=== PATIENT | female | born 1960 | race Caucasian/White ===

== ENCOUNTER 2022-08-22 20:50 | Emergency (ER) | payer OTHER, SELFPAY ==
--- NOTE | ~2022-08-22 | CT_ITS ---
CT Abdomen and Pelvis with contrast. History: Abdominal pain. Spiral CT of the abdomen and pelvis was performed after the administration of intravenous contrast. 1 00 cc of Omnipaque 350 was administered intravenously without complication. Dose reduction technique was used on this scan by utilizing automated exposure control and iterative reconstruction technique. The dose-length product (DLP) was 362.87 mGy-cm. COMPARISON: 05/15/2006 Findings: Scans through the lung bases are clear. The liver, spleen, pancreas, adrenals and kidneys are within normal limits. Cholecystectomy clips are present. No evidence of aortic aneurysm. No lymphadenopathy is seen. There is no evidence of bowel obstruction. There is no evidence of prior bariatric surgery. There is no evidence to suggest acute appendicitis or diverticulitis. Images through the pelvis were performed. Possible small right ureterocele. No adnexal mass evident. No ascites is seen. Impression: Possible small right ureterocele. Postsurgical changes, as above, otherwise unremarkable exam. Reviewed, dictated and finalized at location . CAST OPERATOR Impression: Possible small right ureterocele. Postsurgical changes, as above, otherwise unremarkable exam.
[2022-08-22 21:09] VITALS: BP 122/86; PULSE 77; RESP 18; TEMP 36.4; O2SAT 100
[2022-08-22 21:18] LABS: Basophils Percent Auto 0.7 % (0.2-1.2); Eosinophils Absolute Auto 0.2 K/mm3 (0-0.3); Eosinophils Percent Auto 2.8 % (0-4.4); Hemoglobin 12.9 g/dL (12.0-15.0); Immature Granulocyte Absolute 0.01 K/mm3 (0.00-0.031); Immature Granulocyte Percent A 0.2 % (0-0.5); Lymphocytes Absolute Auto 2.01 K/mm3 (0.9-3.2); Lymphocytes Percent Auto 37.3 % (18.3-44.2); Mean Corpuscular HGB Conc 33.1 g/dl (32-36); Mean Corpuscular Hemoglobin 30.4 pg (26-34); Mean Corpuscular Volume 91.8 fl (80-100); Mean Platelet Volume 8.6 fl (7.4-10.4); Monocytes Absolute Auto 0.5 K/mm3 (0.1-0.6); Monocytes Percent Auto 9.8 % (2.6-8.5); Neutrophils Absolute Auto 2.7 K/mm3 (1.3-6.7); Neutrophils Percent Auto 49.2 % (45.5-73.1); Platelet Count Result 299 k/mm3 (150-375); Red Blood Count 4.25 M/mm3 (4.2-5.4); Red Cell Distribution Width 12.9 % (11.5-14.5); White Blood Count 5.4 K/mm3 (4.5-10.0)
[2022-08-22 21:31] LABS: Alanine Aminotransferase 39 U/L (6-35); Alkaline Phosphatase 64 U/L (38-126); Anion Gap 5 mmol/L (8-16); Aspartate Amino Transferase 28 U/L (14-36); Bilirubin,Total 0.8 mg/dL (0.2-1.3); Blood Urea Nitrogen 26 mg/dL (7-17); Calcium 9.2 mg/dL (8.4-10.2); Carbon Dioxide 30 mmol/L (22-30); Chloride 101 mmol/L (98-107); Estimated CRCL calculation 50 ml/min; Estimated Glomerular Filt Rate > 60; Glucose 61 mg/dL (65-110); Lipase 260 U/L (23-300); Potassium 3.7 mmol/L (3.4-5.0); Sodium 136 mmol/L (137-145)
[2022-08-22 22:38] LABS: Appearance Urine Clear (Clear); Bilirubin Urine Negative (Negative); Blood Urine Trace-intact (Negative); Glucose Urine UA Negative (Negative); Ketones Urine Negative (Negative); Leukocyte Esterase Ur Negative LEU/UL (Negative); Nitrate Urine Negative (Negative); Protein Urine Negative (Negative); Specific Grav Ur 1.015 (1.001-1.035); Urobilinogen Urine 0.2 mg/dL (<2.0); pH Urine 5.5 (5.0-9.0)
[2022-08-22 23:15] LABS: Add Urine Microscopic? YES; Color Urine Light Yellow (Yellow)
[2022-08-22 23:22] VITALS: O2SAT 100
[2022-08-22 23:24] LABS: Squamous Epithelial Cell Urine Rare /hpf (Few); WBC Urine 0-3 /hpf
[2022-08-22 23:30] VITALS: O2SAT 99
[2022-08-22 23:31] VITALS: BP 104/66; O2SAT 98
[2022-08-22 23:32] VITALS: O2SAT 98
[2022-08-22] MEDS: ONDANSETRON INJ 4 MG/2 ML VIAL IV PUSH (23:40)
[2022-08-22] MEDS: SODIUM CHLORIDE 0.9% IV 1,000 ML 999 ML IV CONT (23:40)
--- NOTE | 2022-08-22 23:53 | ED.ABDPAIN ---
HPI - Abdominal Pain General Chief Complaint: Abdominal Pain Stated Complaint: bladder pain Time Seen by Provider: 08/22/22 23:12 History of Present Illness HPI narrative: Patient is a 62-year-old female with a history of gastric sleeve procedure here for evaluation of suprapubic abdominal discomfort over the past several hours. Patient states the pain came on while she was at rest, described as severe in nature. The pain remained there for several minutes and then moved into her right flank. She also notes a pressure sensation and feels as though her uterus may be prolapsed. Notes one episode of vomiting and nausea. Denies dysuria, urgency, frequency, hematuria, constipation. Related Data Allergies Allergy/AdvReac Type Severity Reaction Status Date / Time acetaminophen Allergy Intermediate Itching Verified 08/22/22 23:08 Cephalosporins Allergy Intermediate Itching Verified 08/22/22 23:08 hydrocodone Allergy Intermediate Itching Verified 08/22/22 23:08 naproxen Allergy Intermediate Itching Verified 08/22/22 23:08 Review of Systems Review of Systems: Gen.: Denies fevers or chills Eyes: Denies eye pain or visual change ENT: Denies congestion Respiratory: Denies shortness of breath or cough CV: Denies chest pain or palpitations GI: Reports abdominal pain, nausea, vomiting denies burning, urgency, frequency or hematuria Musculoskeletal: Denies back pain or muscle pain Neuro: Denies numbness, tingling, weakness or focal weakness Skin: Denies rash Except as documented, all other systems reviewed and negative Exam Narrative: APPEARANCE: Well appearing, no pain in distress, well-nourished. Head: Normocephalic and atraumatic. EYES: PERRLA/EOMI, conjunctivae clear NOSE: No nasal drainage EARS: External ear normal in appearance THROAT: Oropharynx is clear. Mucous membranes are moist. NECK: Supple. No adenopathy, no masses. RESPIRATORY: Airway patent, respirations nonlabored. Clear to auscultation bilaterally, no rales, rhonchi, wheezing. CARDIOVASCULAR: Regular rate and rhythm without murmurs, rubs, or gallops. ABDOMINAL: Tenderness to palpation in the suprapubic region. Normoactive bowel sounds. Soft, nondistended. No rebound tenderness or guarding. MUSCULOSKELETAL: Extremities are warm and well-perfused. Moves all extremities well. No edema. NEURO: Normal speech. No focal neurologic deficits. SKIN: Skin is warm and dry. No rashes. PSYCHIATRIC: Normal affect/mood. Course Vital Signs Vital signs: Vital Signs Temperature 97.6 F 08/22/22 21:09 Pulse Rate 77 08/22/22 21:09 Respiratory Rate 18 08/22/22 21:09 Blood Pressure 122/86 08/22/22 21:09 Pulse Oximetry 100 08/22/22 21:09 Oxygen Delivery Room Air 08/22/22 21:09 Temperature 97.6 F 08/22/22 21:09 Pulse Rate 77 08/22/22 21:09 Respiratory Rate 18 08/22/22 21:09 Blood Pressure 115/67 08/23/22 00:31 Pulse Oximetry 100 08/23/22 00:31 Oxygen Delivery Room Air 08/22/22 21:09 MDM - Abdominal Pain MDM Narrative Medical decision making narrative: 62-year-old female here for evaluation of suprapubic abdominal discomfort over the past day associated with vomiting and a discomfort with urination. She is nontoxic in appearance and has normal vital signs. Basic labs are unremarkable. Blood sugar slightly low but patient states she has not eaten all day. Urinalysis without evidence of UTI. CT abdomen pelvis with inflammatory changes around her ureter that could be related to UTI or a possible ureterocele. Given her normal urinalysis favor the latter. She will be referred to urology for further evaluation and management. Her pain subsided in the ED without intervention. Stable for outpatient follow-up at this time. Lab Data 08/22/22 21:14 08/22/22 21:14 Labs: Lab Results 08/22/22 08/22/22 08/22/22 Range/Units 21:14 21:14 22:27 WBC 5.4 (4.5-10.0) K/mm3 RBC 4.25 (4.2-5.4) M/mm3 Hgb 12.9
[2022-08-23 00:12] VITALS: O2SAT 99
[2022-08-23 00:15] VITALS: O2SAT 98
[2022-08-23 00:28] VITALS: BP 116/66; O2SAT 100
[2022-08-23 00:30] VITALS: O2SAT 98
[2022-08-23 00:31] VITALS: BP 115/67; O2SAT 100
[2022-08-23 02:16] VITALS: BP 115/67; PULSE 73; RESP 18; O2SAT 100
== END 2022-08-23 02:18 | disposition home or self-care (01) ==
PROVIDERS: Preventive Medicine Aerospace Medicine; Emergency Provider Physician Assistant
DX: R10.30 Lower abdominal pain, unspecified (principal); Z98.84 Bariatric surgery status
CPT/HCPCS: 36415; 74177; 80053; 81001; 83690; 85025; 96361; 96374; 99284; J2405; J7030; Q9967

== ENCOUNTER 2024-08-30 05:19 | Emergency (ER) | payer BC, SELFPAY ==
--- NOTE | ~2024-08-30 | XR_ITS ---
CHEST RADIOGRAPH CLINICAL HISTORY: chest pain, shortness of breath . COMPARISON: 10/23/2016 TECHNIQUE: Single portable view of the chest. FINDINGS The cardiomediastinal silhouette is unremarkable. The lungs are clear. Visualized osseous structures and soft tissues are unremarkable. IMPRESSION: No focal infiltrate or effusion. Reviewed, dictated and finalized at location A. [employer] LO[employer] ANALYST
[2024-08-30 05:20] VITALS: BP 89/55; PULSE 202; RESP 18; TEMP 36.6; O2SAT 100
--- OUTSIDE RECORDS SUMMARY | 2024-08-30 05:22 | XMS_ITS | Patient Health Record ---
Author Organization [employer] Address [address] [facility] [place]. [address] [place] [id number] Care Team Providers Care Cognos Architect Name Role Phone Sally Senior MD Primary Care Provider Mundo Jj Unavailable [phone] Allergies Allergen (clinical drug ingredient) Drug/Non Drug Allergy documented on EMR Reaction Allergy Type Onset Date Status cephalexin Cephalexin Unknown Drug Allergy Activ e naproxen Naproxen Unknown Drug Allergy Active topiramate Topamax Unknown Drug Allergy Active Reason For Referral No Information Medications Medication SIG (Take, Route, Frequency, Duration) Notes Start Date End Date Status [place] Thyroid 60 MG Orally Once a day Active OTC/Vitamins Magnesium, Vitamin K-2, Vitamin C Active hydroCHLOROthiazide Active B-12 Gastric Bypass Activ e Social History Tobacco Use: Social History Observation Description Date Details (start date - stop date) Never Smoker NA - NA Tobacco Use/Smoking Question Answer Notes Are you a nonsmoker Problems Problem Type SNOMED Code ICD Code Onset Dates Problem Status W/U Status Risk Notes Problem 565796682 Abdominal bloating (R14.0) Active confirmed Problem 993755281 History of bariatric surgery (Z98.84) Active confirmed Problem 11785920 Esophageal dysphagia (R13.10) Active confirmed Problem 271494060 Epigastric direct abdominal tenderness (R10.816) Active confirmed Plan Of Treatment Pending Test Test Name Order Date EGD 11/19/2019 IRON AND TOTAL IRON BINDING CAPACITY 01/2020 FOLATE, SERUM 11/19/2019 VITAMIN B12 11/19/2019 FERRITIN 11/19/2019 ZINC 11/19/2019 Ca+PTH Intact 11/19/2019 CMP: COMPLETE METABOLIC PANEL 11/19/2019 CBC With Differential/Platelet 0 CRP 11/19/2019 Vitamin D, 1,25 + 25-Hydroxy 11/19/2019 Insurance Providers Payer Name Payer Address Payer Phone Subscriber Number Group Number Insured Name Patient Relationship to Insured Coverage Start Date Coverage End Date [facility] [address] [place] [phone] [id number] Milad Walters Spouse - patient is the spouse of the insured Medical (General) History Medical History History ICD Code Ulcers Colon Polyps Hypertension Migraines Hearing Loss Seizures as a baby Surgical History Surgery Date(Month/Year) Colonoscopy Gastric Bypass Umbilical Hernia Twisted Bowel Mesh Removal Partial Hysterectomy Cholecysectomy Hospitalization History Reason Date(Month/Year)
--- OUTSIDE RECORDS SUMMARY | 2024-08-30 05:22 | XMS_ITS | Referral Summary ---
Author Organization [facility] Address [address] [facility] [place] [address] Care Team Providers Care Box Liner Name Role Phone Unknown, Provider Primary Care Provider Unavaila ble Source Comments [facility],non-[facility] Affiliates and Associated Physician Practices is amultiple site organization consisting of ambulatory clinics and hospital sitesin [place], [place], [place] and [place]. This disclosure is being madepursuant to the Care Everywhere program and may not contain all information available regarding this patient. Last updated 18.[facility] Z[facility]m XR Allergies Active Allergy Reactions Criticality Noted Date Comments Naproxen Unknown 01/05/2023 Medications * Be aware that medications may not be up to date on this document. Alwaysverify current medications with the patient. Medication Sig Dispensed Refills Start Date End Date Status acetaminophen (Tylenol) 325 MG tablet Take 2 (two) tablets by mouth every 4 hours as needed for Fever or Pain Maximum allowable Acetaminophen amount = 4 Grams (4000 mg) / 24 hours. 30 tablet 01/05/2023 Active methocarbamol (Robaxin) 750 MG tablet Take 1 (one) tablet by mouth every 6 hours as needed for Muscle Spasms 15 tablet 01/05/2023 Active albuterol HFA (Proventil; Ventolin; Proair) 108 (90 Base) MCG/ACT inhaler Active Ascorbic Acid 1000 MG Take 1 (one) tablet by mouth 2 times daily Active budesonide-formot mikie (Symbicort) 160-4.5 MCG/ACT inhaler Inhale 2 (two) puffs by mouth once daily as needed Active buPROPion SR 12hr (Wellbutrin-SR) 150 MG tablet Take 1 (one) tablet by mouth 2 times daily Active cyanocobalamin (Vitamin B-12) injection Inject 1,000 (one thousand) mcg subcutaneously every 30 days Active ergocalciferol (Drisdol) 1.25 MG (96626 UT) capsule Take 1 (one) capsule by mouth Active ferrous sulfate 325 (65 FE) MG tablet Take 1 (one) tablet by mouth once daily Active FLUoxetine (PROzac) 40 MG capsule Active fluticasone propionate (Flonase) 50 MCG/ACT nasal spray Active hydrOXYzine HCl (Atarax) 25 MG tablet Take 1 (one) tablet by mouth every 8 hours as needed Active thyroid ([place] Thyroid) 60 MG tablet Active pantoprazole (Protonix) 40 MG packet take 1 packet by oral route every day mixed in 1 teaspoonful of applesauce or apple juice Active lisinopril (Prinivil; Zestril) 2.5 MG tablet Active lidocaine (Lidoderm) 5 % patch Active Immunizations Name Administration Dates Next Due TDAP (7yrs+) 01/05/2023 Social History Tobacco Use Types Packs/Day Years Used Date Smoking Tobacco: Former Cigarettes Q uit: 2022 Smokeless Tobacco: Never Tobacco Cessation:Counseling Given: Not Answered Alcohol Use Standard Drinks/Week Comments Not Currently 0 (1 standard drink = 0.6 oz pur e alcohol) Sex and Gender Information Value Date Recorded Sex Assigned at Not on file Gender Identity Not on file Sexual Orientation Not on file Last Filed Vital Signs Vital Sign Reading Time Taken Comments Blood Pressure 124/75 01/24/2023 12:29 PM CDT Pulse 66 01/24/2023 12:29 PM CDT Temperature 36.9 C (98.5 F) 01/24/2023 12:29 PM CDT Respiratory Rate 19 01/24/2023 12:29 PM CDT Oxygen Saturation 99% 01/24/2023 12:29 PM CDT Inhaled Oxygen Concentration - - Weight 69.4 kg (153 lb) 01/24/2023 12:29 PM CDT Height 161.3 cm (5' 3.5 ) 01/24/2023 12:29 PM CD T Body Mass Index 26.68 01/24/2023 12:29 PM CDT Plan of Treatment Not on file Procedures Procedure Name Priority Date/Time Associated Diagnosis Comments BASIC METABOLIC PANEL (CALCIUM TOTAL) STAT 01/05/2023 12:20 AM CDT from Last 3 Months or Most Recently Relevant to Health Maintenance Results * (ABNORMAL) BASIC METABOLIC PANEL (CALCIUM TOTAL) (01/05/2023 12:20 AM CDT) BUN 13 7 - 26 mg/dL 01/05/2023 12:57 AM [facility] Creatinine 0.74 0.56 - 0.96 mg/dL 01/05/2023 12:57 AM [facility] Sodium 131(L) 136 - 145 mmol/L 01/05/2023 12:57 AM [facility] Potassium 3.0(L) 3.5 - 4.5 mmol/L 01/05/2023 12:57 AM [facility] Chloride 99 98 - 107 mmol/L 01/05/2023 12:57 AM [facility] CO2 22 22 - 29 mmol/L 01/05/2023 12:57 AM [facility] Glucose 115 70 - 115 mg/dL 01/05/2023 12:57 AM [facility] Calcium 8.9 8.4 - 10.2 mg/dL 01/05/2023 12:57 AM [facility] Anion Gap 13 8 - 18 01/05/2023 12:57 AM [facility] BUN/Creatinine Ratio 18 7 - 23 01/05/2023 12:57 AM [facility] Osmolality Calculated 273 270 - 300 mOsm/kg 01/05/2023 12:57 AM [facility] eGFR by CKD-EPI 63(L) >=90 mL/min/1.7 3 m2 01/05/2023 12:57 AM [facility] Blood BLOOD SPECIMEN / Unknown Venipuncture / Unknown 01/05/2023 12:20 AM CDT 01/05/2023 12:26 AM CDT Familia Rausch MD LAB - CHEMISTRY GONZALO GUAMAN [facility] Organization Address City/State/ZIP Co de Phone Number [facility] [address] [place] [address], [facility] [phone] from Last 3 Months or Most Recently Relevant to Health Maintenance Care Teams Box Liner Relationship Specialty Start Date End Date Unknown, Provider PCP - General 01/05/23
--- OUTSIDE RECORDS SUMMARY | 2024-08-30 05:22 | XMS_ITS | Data Portability ---
Author Organization [facility] [place] Address [address] [place] [address] [place] [address] Assessment Encounter Date Assessment Date Assessment LastModified by Organization Details LastModified Time 12/17/2023 12/17/2023 Annual gynecological exam performed. Patient will come back in a year unless there are new symptoms. [email or web address] Not available 12/17/2023 14:17:46 Plan of Treatment Reminders Order Date Submit Date Provider Last Modified By Organization Details Last Modified Time Details Appointments None recorded. Lab None recorded. Referral endocrinolo gy referral 2023 024 [email or web address] [place], [address], [place], [address], 4 10:55:10 Procedures None recorded. Surgeries None recorded. Imaging MAMMO, screening, bilateral 2023 024 [email or web address] [facility], [address], [address], [place], [address], 10:58:34 Medication Orders None recorded. Patient TargetsNo targets recorded. Patient InstructionsNo instructions recorded. Reason for Referral Endocrinology Referral for H ypothyroidism Referring Physician: Vangie Lopez, INFORMATION DIRECTOR, Encounter Date: 12/17/2023 Results Created Date Observation Date Name Description Value Unit Range Abnormal Flag Note LastModifiedBy Organization Detail LastModifiedTime 10/11/19 22 10/10/2021 IMAGE GUIDE D PAP AND HPV REGAR DLESS image guided Pap, HPV regardless of Pap result SEE RESULT S BELOW abnormal CASE REPOR T: Cytol ogy Gynec ologi emily Repor t Case: [id number] Autho stasamari tiffani Provi sofia: Gilma Parada, CRISTIANE Colle cted: 10/10 1450 Order ing Locat ion: [place] Patho log[facility] Recei guy: 10/10 2357 First Scree n: Lea Aquino ret, CT Patho logis t: Reji Tan MD Speci men: Scree jordan Pap - Image d, Cervi x STATE MENT OF ADEQU ACY: Satis facto ry for evalu ation Trans forma tion zone compo nent prese nt FINAL DIAGN OSIS: Epith elial Cell Abnor malit y, Squam ous Cell: Atypi emily Squam ous Cells of Undet ermin ed Signi fican ce (ASC- US). Elect aung espinoza carolina d by Reji Tan MD on 022 at 3:54 PM ----- ----- ----- ----- ----- ----- ----- ----- ----- ----- ----- ----- ----- ----- ----- ----- ----- ---- HPV RESUL TS: HPV mRNA E6/E7 : Posit nubia - HPV mRNA Detec paul HPV GENOT YPE 16 (DELFINA) : Not Detec paul HPV GENOT YPE 18/45 (DELFINA) : Not Detec paul NOTE: This high risk HPV mRNA assay detec ts fourt een high- risk HPV types (16, 18, 31, 33, 35, 39, 45, 51, 52, 56, 58, 59, 66, 68) witho ut diffe renti ation . This assay can diffe renti ate HPV 16 from HPV 18/45 , but does not diffe renti ate betwe en HPV 18 and HPV 45. A negat nubia HPV 16, 18/45 genot ype assay resul t does not exclu de the possi bilit y of cytol ogic abnor malit ies or of futur e or under lying EVA 1, EVA 3 or cance r. COMMShaylee NT: Note: This speci men was revie wed by a Cytot echno logis t and/o r Patho logis t (as indic ated in this repor t) after evalu ation using the Thinp rep Imagi ng Syste m. CLINI EMILY INFOR MATIO N: Menst rual Statu s: LMP (if appli cable ): Clini emily Histo ry/Pr eviou s Pap: Type of Neopl marc (if appli cable ): Signi fican t Clini emily Findi ngs: Other Histo ry: Hormo gordo (if appli cable ): SUGGE STED FOLLO W-UP: Follo w up as warra nted, based on curre nt guide lines and indiv idual patie nt consi derat ions. Not Available [facility] (Lab) [address], [place], [address], 10/17/2021 16:57:40 12/06/19 22 12/05/2021 SURGI EMILY PATHO LOGY surgical pathology SEE RESULT S BELOW CASE REPOR T: Surgi emily Patho logy Repor t Case: [id number] Autho leeann nixon Provi sofia: Jigar Harris Colle cted: 12/05 1359 COPRA PROCESSOR Order ing Locat ion: [place] Patho [place] Recei guy: 12/06 0436 Patho logis t: Martin Stone MD Speci mens: A) - Cervi x, 5 o'corwin ck B) - Endoc ervix , ECC C) - Cervi x, TMZ FINAL DIAGN OSIS: A. Cervi x, 5:00, biops y: -Low- grade squam ous intra epith elial lesio n (EVA- 1). B. Endoc ervix , curet tage: -Frag ments of benig n ectoc ervic al and endoc ervic al mucos a. C. Cervi x, trans forma tion zone, biops y: -Foca l low-g rade squam ous intra epith elial lesio n (EVA- 1). Elect aung figueroa d by Martin Stone MD on 2021 at 12:46 PM ----- ----- ----- ----- ----- ----- ----- ----- ----- ----- ----- ----- ----- ----- ----- ----- ----- ---- CLINI EMILY INFOR MATIO N: r87.6 10, r87.6 10 MICRO SCOPI C DESCR IPTIO N: A micro scopi c exami natio n was perfo rmed. GROSS DESCR IPTIO N: A. Cervi x. The speci men is label ed with the patie nt's name, naveenog raphi cs and BX 5:00 . Recei guy in forma melissa is a 0.5 cm fragm ent of white -pelaez tissu e. The entir e speci men is submi tted in one casse tte. Gross ed by Blayne Vickers on B. Endoc ervix . The speci men is label ed with the patie nt's name, demog raphi cs and ECC . Recei guy in forma melissa and on a biops y brush is a 0.3 x 0.2 x 0.1 cm aggre gate of minut e white tissu e and mucus . It is submi tted all in one casse tte. Gross ed by Blayne Vickers on C. Cervi x. The speci men is label ed with the patie nt's name, demog raphi cs and ECC . Recei guy in forma melissa is a less than 0.1 [address] aggre gate of minut e white tissu e and mucus . It is submi tted all in one casse tte. Note the tissu e may not survi ve proce ssing . Gross ed by Blayne Vickers on Not Available [facility] (Lab) [address], [place], [address], 12/06/2021 13:49:42 12/17/19 24 12/17/2023 IMAGE GUIDE D PAP AND HPV REGAR DLESS image guided Pap, HPV regardless of Pap result SEE RESULT S BELOW CASE REPOR T: Cytol ogy Gynec ologi emily Repor t Case: [id number] Autho leeann nixon Provi sofia: Paulo leija , Selam Clark cted: 12/16 1708 COPRA PROCESSOR Order ing Locat ion: [place] Patho [place]y Recei guy: 12/17 0828 First Scree n: Nadine Henao , CT Rescr een: Kate Cartagena Speci men: Jenny ortega Pap - Image d, Cervi x STATE MENT OF ADEQU ACY: Satis facto ry for evalu ation Trans forma tion zone compo nent prese nt. ----- ----- ----- ----- ----- ----- ----- ----- ----- ----- ----- ----- ----- ----- ----- ----- ----- ---- FINAL DIAGN OSIS: Negat nubia for Intra epith elial Oz jeffers or Essence solomon (NIL) . Atrop hic kaye capps rn. Elect aung nash by Kate Cartagena on 024 at 5:01 PM ----- ----- ----- ----- ----- ----- ----- ----- ----- ----- ----- ----- ----- ----- ----- ----- ----- ---- HPV RESUL TS: HPV mRNA E6/E7 : No HPV mRNA Detec paul NOTE: This high risk HPV mRNA assay detec ts fourt een high- risk HPV types (16, 18, 31, 33, 35, 39, 45, 51, 52, 56, 58, 59, 66, 68) witho ut diffe renti ation . COMME NT: This speci men was revie wed by a Cytot echno logis t and/o r Patho logis t (as indic ated in this repor t) after evalu ation using the Thinp rep Imagi ng Syste m. CLINI EMILY INFOR MATIO N: Menst rual Statu s: LMP (if appli cable ): Clini emily Histo ry/Pr eviou s Pap: High Risk Type of Neopl marc (if appli cable ): Signi fican t Clini emily Findi ngs: Other Histo ry: Hormo gordo (if appli cable ): PAP EDUCA JHONNY L NOTE: The Pap Test is a scree jordan test with an inher ent false negat nubia rate. Liqui d-bas ed sampl ing may decre ase, but will not elimi jennifer, false negat nubia resul ts. A negat nubia resul t does not precl ude the prese nce and/o r devel opmen t of disea se, since the prese nce of abnor mal cells in the sampl e depen ds on the locat ion of the lesio n and sampl ing techn ique. Kike nued regul ar scree jordan is the best metho d of cance r preve ntion . If repor paul cytol ogic findi ng do not corre late with physi emily and/o r histo rical findi ngs, furth er inves tigat ion is recom payal d, as clini lilliana no nted. Not Available [facility] ([facility]) [address], [place], [address], 12/19/2023 18:05:18 Result Notes None recorded. Procedures Surgical History Date Name Laterality Status Provider Name and Address Organization Details Recorded Time Colposcopy completed Vangie Lopez, RICHELLE- [address], [place], [address], [facility] 12/05/2021 11:39:40 Colposcopy completed Sari Venegas [facility] 12/17/2023 14:22:56 Date of Last Pap Smear completed [facility] 10/12/2021 15:16:38 007 Gastric Bypass completed [facility] 10/12/2021 15:27:28 000 cholecystectomy completed [facility] 10/12/2021 15:27:41 995 Laparoscopy completed [facility] 10/12/2021 15:28:12 993 section completed [facility] 10/12/2021 15:28:29 993 Tubal Ligation completed [facility] 10/12/2021 15:28:40 Imaging Results None recorded. Procedure Notes None recorded. Medical Equipment None Reported. Allergies Allergen ID Allergen Name Allergen Category Reaction Reaction Severity Criticality Documentation Date Start Date Code Code System Note Provider Name and Address Organization Details Recorded Time 85570 hydrocodo ne Not available Not available Not available Not available 12/05/[address] [facility] 2 11:12:46 9733 cephalexi n medicatio n Not available Not available Not available 07/01/2020 2231 RxNorm Comme nt: [facility]at [facility]; Not Available [facility] 0 14:14:43 9736 ibuprofen medicatio n Not available Not available Not available 07/01/2020 5640 RxNorm Comme nt: Locat [facility]: [facility]; Not Available [facility] 0 14:14:43 9741 acetamino phen medicatio n Not available Not available Not available 07/01/2020 161 RxNorm Comme nt: Locat [facility]: [facility] Cau sativ e Agent : Vicod in; Not Available [facility] 0 14:14:43 Medications Name Sig Start Date Stop Date Status Note LastModified by Organization Details LastModified Time fluoxetin e 40 mg capsule 12/16 completed Not Available Not Available Not Available [place] Thyroid 60 mg tablet 12/16 completed Not Available Not Available Not Available buspirone 5 mg tablet 12/16 completed Not Available Not Available Not Available bupropion HCl SR 150 mg tablet,12 hr sustained -release 12/16 completed Not Available Not Available Not Available acetamino phen 325 mg tablet PLEASE SEE ATTACHED FOR DETAILED DIRECTIO NS 12/16 completed Not Available Not Available Not Available [place] Thyroid 90 mg tablet 12/16 completed Not Available Not Available Not Available Carafate 100 mg/mL oral suspensio n take 10 millilit er by oral route 4 times every day on an empty stomach 1 hour before meals and at bedtime 12/05 completed Prescrib ed Elsewher e: Yes [facility] By: stefan arellano DateTime : 01/01/20 14 01:00:00 PM Not Available Not Available Not Available clindamyc in HCl 300 mg capsule TAKE 1 CAPSULE BY MOUTH 3 TIMES A DAY UNTIL GONE 12/16 completed Not Available Not Available Not Available BD Luer-Joan Syringe 3 mL 25 x 5/8 12/16 completed Not Available Not Available Not Available Provera 2.5 mg tablet take 1 Tablet by oral route every day 08/10 completed Prescrib ed Elsewher e: No Locat ion: [facility] odify By: devontediemily Encount er DateTime : 02/26/20 13 03:00:00 PM Not Available Not Available Not Available Synthroid 125 mcg tablet take 1 tablet by oral route every day 12/05 completed Prescrib ed Elsewher e: Yes Loca tion: [facility] odify By: fiona myers DateTime : 10/24/19 17 09:30:00 AM Not Available Not Available Not Available [place] Thyroid 120 mg tablet active Not Available Not Available Not Available clindamyc in HCl 150 mg capsule 12/05 completed Not Available Not Available Not Available Provera 5 mg tablet TAKE 1 TABLET BY MOUTH EVERY DAY 12/16 completed Prescrib ed Elsewher e: No Locat ion: Kam june [facility] odify By: alexis tz Encou nter DateTime : 01/01/20 14 01:00:00 PM Not Available Not Available Not Available phentermi ne 37.5 mg tablet TAKE 1 TABLET BY MOUTH DAILY X 5 DAYS, THEN OFF X 2 DAYS. REPEAT CYCLE UNTIL GONE 12/16 completed Not Available Not Available Not Available acetamino phen 300 mg-codein e 30 mg tablet 12/16 completed Not Available Not Available Not Available oxycodone -acetamin ophen 5 mg-325 mg tablet 12/16 completed Not Available Not Available Not Available Metrogel Vaginal 0.75 % (37.5 mg/5 gram) insert 1 applicat orful by vaginal route for 5 nights at bedtime 12/05 completed Prescrib ed Elsewher e: No [facility] By: matthew salehunttyrone DateTime : 10/31/19 17 09:23:00 AM Not Available Not Available Not Available methocarb pankaj 750 mg tablet TAKE 1 (ONE) TABLET BY MOUTH EVERY 6 HOURS NEEDED FOR MUSCLE SPASMS 12/16 completed Not Available Not Available Not Available estradiol 1 mg tablet take 1 tablet by oral route every day 01/01 completed Prescrib ed Elsewher e: No Locat ion: Jamel shaylee [facility] odify By: blane Encount er DateTime : 01/01/20 14 01:00:00 PM Not Available Not Available Not Available Synthroid 25 mcg tablet take 1 tablet by oral route every day 02/25 completed Prescrib ed Elsewher e: Yes [facility]oca [facility] odify By: susan June ncounter DateTime : 11/25/19 13 03:30:00 PM Not Available Not Available Not Available cyanocoba terry (vit B-12) 1,000 mcg/mL injection solution active Not Available Not Available Not Available ramipril 2.5 mg capsule active Not Available Not Available Not Available lidocaine 5 % topical patch active Not Available Not Available Not Available Synthroid 75 mcg tablet TAKE 1 TABLET BY ORAL ROUTE EVERY DAY 12/05 completed Prescrib ed Elsewher e: No Locat ion: [facility] odify By: shannony Ramesh salmon DateTime : 07/19/19 15 02:44:01 PM Not Available Not Available Not Available indapamid e 1.25 mg tablet active Not Available Not Available Not Available fluoxetin e 10 mg capsule TAKE 1 CAPSULE BY MOUTH EVERY DAY 12/16 completed Not Available Not Available Not Available albuterol sulfate HFA 90 mcg/actua tion aerosol inhaler 12/16 completed Not Available Not Available Not Available Vitamin D2 1,250 mcg (50,000 unit) capsule take 1 capsule ([id number] ITS) by oral route every week 02/25 completed Prescrib ed Elsewher e: No Locat ion: [facility] odify By: susan salehunttyrone DateTime : 12/11/19 13 04:32:22 PM Not Available Not Available Not Available fluoxetin e 20 mg capsule TAKE 1 CAPSULE BY MOUTH EVERY DAY 12/16 completed Not Available Not Available Not Available fluticaso ne propionat e 50 mcg/actua tion nasal spray,mindy pension active Not Available Not Available Not Available lisinopri l 2.5 mg tablet 12/16 completed Not Available Not Available Not Available BD Luer-Joan Syringe 3 mL 22 x 1 /12/16 completed Not Available Not Available Not Available phentermi ne 37.5 mg capsule 12/16 completed Not Available Not Available Not Available BD Bulk Syringe Slip Tip 1 mL inject 1 Millilit er by Intramus cular route every month 02/25 completed Prescrib ed Elsewher e: No Locat ion: [facility] odify By: susan June ncounter DateTime : 12/03/19 13 12:58:10 PM Not Available Not Available Not Available Lexapro 5 mg/5 mL oral solution take 10 millilit er by oral route every day 10/23 completed Prescrib ed Elsewher e: Yes Loca tion: [facility] odify By: fiona salehunter DateTime : 01/01/20 14 01:00:00 PM Not Available Not Available Not Available Foltrate 0.5 mg-1 mg tablet take 1 tablet by oral route every day 12/16 completed Prescrib ed Elsewher e: Yes Loca tion: [facility] odify By: susan myers DateTime : 02/26/20 13 03:00:00 PM Not Available Not Available Not Available nitrofura ntoin monohydra te/macroc rystals 100 mg capsule 12/05 completed Not Available Not Available Not Available EEMT 1.25 mg-2.5 mg tablet take 1 tablet by oral route daily 12/16 completed Prescrib ed Elsewher e: No Locat ion: [facility] odify By: blane Encount er DateTime : 01/02/20 14 11:28:16 AM Not Available Not Available Not Available hydrochlo rothiazid e 12.5 mg tablet 12/16 completed Not Available Not Available Not Available BD Regular Bevel Corinne 18 gauge x 1 07/16 completed Not Available Not Available Not Available Protonix 40 mg granules delayed-r elease packet take 1 packet by oral route every day mixed in 1 teaspoon ful of applesau ce or apple juice 12/16 completed Prescrib ed Elsewher e: Yes Loca tion: [facility] odify By: stefan arellano DateTime : 01/01/20 14 01:00:00 PM Not Available Not Available Not Available Vitals Date Recorded Body height Body mass index (BMI) Body weight Systolic blood pressure Diastolic blood pressure Provider Name and Address Organization Details Last Updated DateTime 10/10/2021 160.02 cm 31.2 kg/m2 55231.26 g 132 mm[Hg] 83 mm[Hg] Martha Barnes [facility] 12:34:27 Date Recorded Body height Body mass index (BMI) Body weight Provider Name and Address Organization Details Last Updated DateTime 12/05/2021 160.02 cm 30.5 kg/m2 68937.61 g Lisa Montgomery [facility] 12/05/2021 11:12:29 Date Recorded Systolic blood pressure Diastolic blood pressure Provider Name and Address Organization Details Last Updated DateTime 12/05/2021 122 mm[Hg] 70 mm[Hg] Vangie Lopez, [facility]- [address], [place], [address], [facility] 12/05/2021 11:18:59 Date Recorded Body height Body mass index (BMI) Body weight Systolic blood pressure Diastolic blood pressure Provider Name and Address Organization Details Last Updated DateTime 12/17/2023 160.02 cm 26.4 kg/m2 86257.26 g 132 mm[Hg] 80 mm[Hg] Sari Venegas [facility] 14:18:49 Social History Question Answer Notes LastModified by Organizat ion Details LastModified Time Tobacco Smoking Status Former Smoker Martha melgar, [facility] 10/12/2021 15:29:27 What Is Your Level Of Alcohol Consumption? Occasional Information not available 10/12/2021 Are You Blind Or Do You Have Difficulty Seeing? No [email or web address] Information not available 10/12/2021 What Is Your Level Of Caffeine Consumption? Moderate [email or web address] Information not available 10/12/2021 In The 14 Days Before Symptom Onset, Have You Had Close Contact With A Laboratory-confir med COVID-19 While That Case Was Ill? No [email or web address] Information not available 10/12/2021 In The 14 Days Before Symptom Onset, Have You Had Close Contact With A Person Who Is Under Investigation For COVID-19 While That Person Was Ill? No [email or web address] Information not available 10/12/2021 Have You Been To An Area Known To Be High Risk For COVID-19? No [email or web address] Information not available 10/12/2021 Are You Deaf Or Do You Have Serious Difficulty Hearing? No [email or web address] Information not available 10/12/2021 What Type Of Diet Are You Following? REGULAR [email or web address] Information not available 10/12/2021 Have You Ever Been Counseled For Unhealthy Alcohol Use? No [email or web address] Information not available 10/12/2021 Do You Use Your Seat Belt Or Car Seat Routinely? Yes [email or web address] Information not available 10/12/2021 Do You Have Smoke And Carbon Monoxide Detectors In Your Home? Yes [email or web address] Information not available 10/12/2021 Do You Feel Stressed (tense, Restless, Nervous, Or Anxious, Or Unable To Sleep At Night)? [id number] [email or web address] Information not available 10/12/2021 Do You Use Any Illicit Or Recreational Drugs? No [email or web address] Information not available 10/12/2021 Do You Use Sunscreen Routinely? Yes [email or web address] Information not available 10/12/2021 Has Tobacco Cessation Counseling Been Provided? No Information not available 10/12/2021 Do You Or Have You Ever Used Any Other Forms Of Tobacco Or Nicotine? No Information not available 10/12/2021 Sex: Unknown Functional Status Question Answer Note LastModified by Organizat ion Details LastModified Time Do you have difficulty walking or climbing stairs? No Information not available 10/12/2021 Are you able to walk? YESWOREST [email or web address] Information not available 10/12/2021 Are you able to care for yourself? Yes [email or web address] Information not available 10/12/2021 Do you have difficulty dressing or bathing? No [email or web address] Information not available 10/12/2021 What is your exercise level? Occasional [email or web address] Information not available 10/12/2021 Mental Status None recorded. Family History Relationship Description Onset Age of this Age Resolved Age Notes LastModified by Organization Details LastModified Time Father Asthma Not available 10/12/2021 15:21:21 Father Heart disease [email or web address] Not available 10/12 15:22:29 Father Hypercholest erolemia [email or web address] Not available 10/12 15:23:13 Father Hypertensive disorder [email or web address] Not available 10/12 15:23:54 Father Pulmonary embolism [email or web address] Not available 10/12 15:25:00 Mother Malignant tumor of cervix [email or web address] Not available 10/12 15:21:32 Mother Blood coagulation disorder [email or web address] Not available 10/12 15:21:45 Mother Heart disease [id number] Not available 10/12 15:22:29 Mother Diabetes mellitus [email or web address] Not available 10/12 15:22:38 Mother Hypercholest erolemia [email or web address] Not available 10/12 15:23:13 Mother Hypertensive disorder [email or web address] Not available 10/12 15:23:54 Mother Malignant tumor of breast Not available 10/12 15:30:50 Maternal Grandmother Heart disease [email or web address] Not available 10/12 15:22:29 Maternal Grandmother Hypercholest erolemia [email or web address] Not available 10/12 15:23:13 Maternal Grandmother Hypertensive disorder [email or web address] Not available 10/12 15:23:54 Maternal Grandfather Heart disease Not available 10/12 15:22:29 Maternal Grandfather Hypercholest erolemia Not available 10/12 15:23:13 Maternal Grandfather Hypertensive disorder [email or web address] Not available 10/12 15:23:54 Paternal Grandfather Heart disease Not available 10/12 15:22:29 Paternal Grandfather Hypercholest erolemia [email or web address] Not available 10/12 15:23:13 Paternal Grandfather Hypertensive disorder [email or web address] Not available 10/12 15:23:54 Paternal Grandmother Heart disease [email or web address] Not available 10/12 15:22:29 Paternal Grandmother Hypercholest erolemia [email or web address] Not available 10/12 15:23:13 Paternal Grandmother Hypertensive disorder [email or web address] Not available 10/12 15:23:54 Paternal Grandmother Disorder of thyroid gland [id number] Not available 10/12 15:25:17 Sister Heart disease [email or web address] Not available 10/12 15:22:30 Brother Heart disease Not available 10/12 15:22:30 Notes:Father: Asthma, Hyperl ipidemia, Hypertension Maternal grandfather: Hypertension, Congenital heart disease Mother: Congenital heart disease, Hypertension, Diabetes mellitus, Cancer, breast, Hyperlipidemia, Cancer, breast Medical History Condition Response Allergies (Food, seasonal, environmental ) N Other Y Blood Transfusion N Breast Cancer N Drug/Latex Allergies/Reactions N Dermatologic Disorders N Lung Disease N Defects or Inherited Disease N Breast Problem N Gestational Diabetes N Hematologic disorders N Anesthesia Complications N History of STI N Deep Vein Thrombosis N Polycystic ovary syndrome Y Anxiety Disorder N Autoimmune disease N Arthritis N Polyps N Infertility N Acid Reflux (GERD) N History of abnormal pap N Cancer N Varicosities N Stroke N Neurologic/Epilepsy Y Endometriosis N High Cholesterol Y Fibromyalgia N Headaches N Kidney Disease N Heart Problems N Thyroid Problems Y Kidney or Bladder Problems N GI Problems Y Eating Disorder N Anemia Y Art (IVF or FET) N Psychiatric Illness N Ovarian Cancer N Diabetes N Pulmonary (TB, Asthma) N Hepatitis/Liver Disease N No Past Medical History N Eczema N Urinary Tract Infection N Abuse/Domestic Violence N Asthma N Trauma/Violence N Depression/ depression N Heart Disease N Pre-Eclampsia N Hypertension Y Osteoporosis N Thrombophilias N Gynecological History Statement/Question Response If Post Menopausal, Age at Menopause Abnormal Pap Y Date of Last Mammogram Date of LMP 07/15/1995 Menses Monthly N Date of DEXA bone scan STIs/STDs N Colposcopy 12/05/2021 Date of Last Pap Smear 10/10/2021 Current Control Method Tubal Ligat ion LMP Approximate Obstetrics History GPAL:G 3 P 3 0 0 3 Type Value Full Term 3 Living 3 Total 3 Past Encounters Encounter ID Performer Location Encounter Start Date Encounter Closed Date Diagnosis/Indication Diagnosis SNOMED-CT Code Diagnosis ICD10 Code Diagnosis Note [id number] Gilma Sharma [place] [address] [address] 10/10/2021 11:46:02 10/11/2021 12:59:59 Gynecologic examination [id number] Z01.419 Z11.51 Take Calcium with Vitamin D 12-1500mg daily. Do monthly self breast exams. It is advised to get annual flu shot in the fall and she could obtain at [facility] or [facility] clinic. If you haven't received the Tdap vaccine in the last 10 years you should obtain one as well. Have mammogram yearly, bone density every 2-3 years and colonoscop y every 5-10 years depending on findings and history. Order given for bone density. Engage in daily exercise of low impact aerobic exercise 45-60 minutes 4-5 times weekly. Avoid tobacco and illicit drugs as well as using moderation with alcohol intake less than 1-2 8 oz beverages daily. This lifestyle behavior pattern will lead to less health conditions and longer life span. If BMI greater than 25 weight watchers or dietary consult advised. Questions have been answered. Patient appears to understand instructio ns, but if you have any further questions call or respond to this email. Adnexal tenderness [id number] R10.2 Midline to left side discomfort with exam. Started a couple months ago. Comes and goes.U/S and MD follow up. [id number] Lisa [facility] [address] [address] 12/05/2021 10:51:02 12/05/2021 11:54:07 Atypical squamous cells of undetermined significance on cervical Papanicolaou smear [id number] R87.610 R87.810 See procedure notes.Post -procedure instructio ns reviewed with understand ing verbalized .Will contact with results & next steps in plan of care. Booklet & additional resources regarding pap smear/HPV/ Pap results given. [email or web address] ov/types/c ervical/un derstandin g-abnormal -hpv-and-p ap-test-re sults/unde rstanding- cervical-c hanges.pdf Counseled on Pap/HPV guidelines /Testing/R esults with understand ing verbalized .All questions answered to patient satisfacti on. Encouraged to quit smoking as well. [facility] [address] [address] 12/17/2023 14:02:36 12/17/2023 16:18:33 Gynecologic examination [id number] Z01.419 Take Calcium with Vitamin D 12-1500mg daily. Do monthly self breast exams. It is advised to get annual flu shot in the fall and she could obtain at [facility] or [facility] care clinic. If you haven't received the Tdap vaccine in the last 10 years you should obtain one as well. Have mammogram yearly, bone density every 2-3 years and colonoscop y every 5-10 years depending on findings and history. Engage in daily exercise of low impact aerobic exercise 45-60 minutes 4-5 times weekly. Avoid tobacco and illicit drugs as well as using moderation with alcohol intake less than 1-2 8 oz beverages daily. This lifestyle behavior pattern will lead to less health conditions and longer life span. If BMI greater than 25 weight watchers or dietary consult advised. Questions have been answered. Patient appears to understand instructio ns, but if you have any further questions call or respond to this email Pap/hpv sent STD Screen declined Genetic Screen discussed Colon Screen UTD PCP Dexa Screen UTD PCP Routine Labs UTD PCP Screening mammography [id number] Z12.31 Hypothyroidism [id number] E03.9 Wants a new endocrinol ogist. Health Concerns Section Related Observation LastModified by Organization Detai ls LastModified Time None Recorded Concern Status LastModified by Organization Details LastModified Time None Recorded Advance Directives Directive None Recorded Payers Encounter Date Sequence Insurance Name Policy Number Policy Galloway Covered Member ID Galloway Member ID Guarantor Name 10/10/2021 1 [facility] [id number] [facility] [id number] [facility] 12/05/2021 1 [facility] [id number] [facility] [id number] [facility] 12/17/2023 1 [facility] (PPO[facility] [id number] [facility] [id number] [facility] Notes Date Note Type Note Provider Name and Address Organization Details Recorded Time 10/10/2021 text/html Annual GYNReport ed bypatient.Urinary symptoms:No hematuria; No incontinence Vulva:No genital lesion Vagina:Normal vaginal discharge Breast:No breast pain; No breast lump; No nipple discharge Sexual complaints:No sexual complaints; No pain during intercourse; Normal libido Menopausal Symptoms:No menopausal symptoms; Normal vaginal lubrication Psychological symptoms:No depression; No anxiety; No PMDD Mammogram done 6 months ago.Colonoscopy due next year.Has not had a bone density.Tubes and 1 ovary removed. Still has uterus. Gilma Sharma [facility] 10/11/2021 03:22:50 12/05/2021 text/html Here today for colposcopy of ASCUS w/ +HR HPV for 2021.Denies previous Hx of abn pap/hpvReports supracervical hysterectomy >10yrs ago. Lisa melgar, [facility] 12/05/2021 14:38:02 12/17/2023 text/html Annual Pre Assembly Wirer Post-MenopausalRepo rted bypatient.Menopausa l Symptoms:no menopausal symptoms; normal vaginal lubrication Vaginal Bleeding:history of menopause having occurred; no history of post menopausal bleeding Urinary Symptoms:no hematuria; no incontinence; no nocturia; no urinary frequency Vulva:no genital lesion; no vulvar atrophy Vagina:normal vaginal discharge; no vaginal atrophy Breast:no breast lump; no nipple discharge; no breast pain Sexual Complaints:no sexual complaints Psychological Symptoms:no depression; no anxiety Preventive Measures:encourage regular mammograms starting age 40; encourage self breast examination; encourage regular exercise; encourage no tobacco use; needs to schedule mammogram; history of recent colonoscopy RICHELLE Mercer- [address], [place], [address], [facility] 12/17/2023 16:05:55 OBGyn Episode Ob Episode Information Episode Created Date Number of Fetuses Patient Bloodtype Patient rh Status Prepregnancy Weight lbs Domestic Partner Domestic Partner Phone Father Name Overlock Waistline Joiner Status 10/13/19 22 1 CLOSED Fetus Data First Name Last Name Admitted to NICU Weight (g) Sex Living Outcome Pediatric Complications Fetus ID Race Codes Race Delivery Type 3600.15 9704 F Full Term [id number] Primary Shane Calculation Initial Shane Date Initial Exam Date Initial Exam Provider Initial Ultrasound Date Last Menstrual Period Date Ultra Sound Weeks Gestation 0 Eighteen To Twenty Week Shane Update Ultra Sound Date Fundal Height At Umbil Quickening Date Ultra Sound Latest Weeks Gestation Final Shane Confirmed By Final Sahne Confirmed Date Final Shane Date Ultra Sound Latest Days Gestation 0 0 Menstrual History Last Menstrual Date Menses Monthly On Bcp Conception Prior Menses Frequency Hcg Plus Date Menarche Onset Age Delivery Information Delivery Date Delivery Type Labor Anesthesia Weeks Gestation Incision Type Labor Labor Length Hrs Delivered By Post Complications Tubal Sterilization Discharge Date Comments 3 40 Discharge Information Feeding Method Contraceptive Method Maternal HG B and HCT Levels Ob Episode Information Episode Created Date Number of Fetuses Patient Bloodtype Patient rh Status Prepregnancy Weight lbs Domestic Partner Domestic Partner Phone Father Name Overlock Waistline Joiner Status 10/13/19 22 1 CLOSED Fetus Data First Name Last Name Admitted to NICU Weight (g) Sex Living Outcome Pediatric Complications Fetus ID Race Codes Race Delivery Type 3628.73 6 M Full Term [id number] Vaginal Delivery Shane Calculation Initial Shane Date Initial Exam Date Initial Exam Provider Initial Ultrasound Date Last Menstrual Period Date Ultra Sound Weeks Gestation 0 Eighteen To Twenty Week Shane Update Ultra Sound Date Fundal Height At Umbil Quickening Date Ultra Sound Latest Weeks Gestation Final Shane Confirmed By Final Shane Confirmed Date Final Shane Date Ultra Sound Latest Days Gestation 0 0 Menstrual History Last Menstrual Date Menses Monthly On Bcp Conception Prior Menses Frequency Hcg Plus Date Menarche Onset Age Delivery Information Delivery Date Delivery Type Labor Anesthesia Weeks Gestation Incision Type Labor Labor Length Hrs Delivered By Post Complications Tubal Sterilization Discharge Date Comments 7 40 Discharge Information Feeding Method Contraceptive Method Maternal HG B and HCT Levels Ob Episode Information Episode Created Date Number of Fetuses Patient Bloodtype Patient rh Status Prepregnancy Weight lbs Domestic Partner Domestic Partner Phone Father Name Overlock Waistline Joiner Status 10/13/19 22 1 CLOSED Fetus Data First Name Last Name Admitted to NICU Weight (g) Sex Living Outcome Pediatric Complications Fetus ID Race Codes Race Delivery Type 3146.56 7704 M Full Term [id number] Vaginal Delivery Shane Calculation Initial Shane Date Initial Exam Date Initial Exam Provider Initial Ultrasound Date Last Menstrual Period Date Ultra Sound Weeks Gestation 0 Eighteen To Twenty Week Shane Update Ultra Sound Date Fundal Height At Umbil Quickening Date Ultra Sound Latest Weeks Gestation Final Shane Confirmed By Final Shane Confirmed Date Final Shane Date Ultra Sound Latest Days Gestation 0 0 Menstrual History Last Menstrual Date Menses Monthly On Bcp Conception Prior Menses Frequency Hcg Plus Date Menarche Onset Age Delivery Information Delivery Date Delivery Type Labor Anesthesia Weeks Gestation Incision Type Labor Labor Length Hrs Delivered By Post Complications Tubal Sterilization Discharge Date Comments 1 40 Discharge Information Feeding Method Contraceptive Method Maternal HG B and HCT Levels
--- OUTSIDE RECORDS SUMMARY | 2024-08-30 05:22 | XMS_ITS | Clinical Summary ---
Author Organization [facility] Address [address] [place] [address] Care Team Providers Care Senior Health Physics Technician Name Role Phone None, Provider MD Primary Care Provider Unavaila ble Allergies Active Allergy Reactions Criticality Noted Date Comments Cephalexin Rash Low 10/22/2012 Ciprofloxacin Rash Low 10/08/2017 Codeine Rash Low 02/05/2020 Hydrocodone-Acetaminophen Rash,Itching Low 09/15/19 17 Naproxen Unknown 10/22/2012 Sulfa Antibiotics Rash Low 12/23/2015 Topiramate Palpitations High 03/05/2019 Headaches, stroke, siezures Medications Multiple Vitamins tablet Take 1 tablet by mouth daily. 8 Active SYRINGE-NEEDLE , DISP, 3 ML (B-D 3CC LUER-HASEEB SYR 25GX5/8 ) 25G X 5/8 3 ML Misc Once a month 7 Active cyanocobalamin 1000 MCG/ML injection Cyanocobalamin 1000 MCG/ML Injection SolutionINJECT 1ML(1000MCG) ONCE MONTHLY [id number] ve 7 Active albuterol sulfate HFA 108 (90 Base) MCG/ACT inhalerIndicat ions:Bronchiti s TAKE 2 PUFFS BY MOUTH EVERY 6 HOURS NEEDED FOR WHEEZE OR SHORTNESS OF BREATH 8.5 Inhaler 0 Active thyroid (ARMOUR) 60 MG OR tablet Take 65 mg by mouth daily. Active lisinopril 2.5 MG tablet Take 2.5 mg by mouth daily. Active hydroCHLOROthi azide 12.5 MG tablet Take 12.5 mg by mouth every morning. Active ferrous sulfate, 65 mg elemental, 325 (65 FE) MG tablet Take 325 mg by mouth daily with breakfast. Active buPROPion 75 MG tablet Take 75 mg by mouth 2 (two) times daily. Active Active Problems Problem Noted Date Diagnosed Date Weight gain following gastric bypass surgery Gastroesophageal reflux disease 03/11/2019 Overview (08/21/2019): Added automatically from request for surgery [id number] Other headache syndrome 03/05/2019 Hyperlipidemia 03/05/2019 Anxiety 03/05/2019 Need for history and physical examination for em ployment 02/10/2019 Assessment & Plan (02/10/2019 4:52 PM CDT): No limitations or restrictions for work. Will sign off on form once they send me results of PPD since they want me to sign off on the orders. We will fax form once we have the results Migraine with aura and with status migrainosus, not intractable 10/20/2018 Abnormal cervical Papanicolaou smear 05/29/2018 Post-menopausal 10/09/2017 Mixed anxiety and depressive disorder 10/08/2017 Hypothyroidism 07/14/2014 Resolved Problems Problem Noted Date Diagnosed Date Resolved Date Wears glasses 10/08/2017 03/25/2020 Immunizations Name Administration Dates Next Due Influenza (Generic) 08/04/2012 MODERNA COVID-19 (12+) MRNA, LNP-S, PF, 100 MCG/ 0.5 ML DOSE 09/09/2020,08/05/2020 Family History Medical History Relation Comments COPD Father Heart Disease Father Diabetes Mother Heart Mother afib Heart Disease Mother Relation Status Comments Father Alive Mother Social History Tobacco Use Types Packs/Day Years Used Date Smoking Tobacco: Former Cigarettes 0 02/04/1991 - 02/05/2016 Smokeless Tobacco: Never Tobacco Cessation:Counseling Given: Not Answered Alcohol Use Standard Drinks/Week Comments Yes 0 (1 standard drink = 0.6 oz pur e alcohol) social Comments No Sex and Gender Information Value Date Recorded Sex Assigned at Female 08/21/2019 12:43 PM CODING ASSISTANT Legal Sex Female 2:55 AM CDT Gender Identity Female 08/21/2019 12:43 PM CODING ASSISTANT Sexual Orientation Straight 08/21/2019 12 :43 PM CODING ASSISTANT Last Filed Vital Signs Vital Sign Reading Time Taken Comments Blood Pressure 123/64 06/25/2022 7:38 PM CODING ASSISTANT Pulse 67 06/25/2022 7:38 PM CODING ASSISTANT Temperature 36.4 C (97.5 F) 06/25/2022 7:38 PM CODING ASSISTANT Respiratory Rate 18 06/25/2022 7:38 PM CODING ASSISTANT Oxygen Saturation 100% 06/25/2022 7:38 PM CODING ASSISTANT Inhaled Oxygen Concentration - - Weight 68 kg (150 lb) 06/25/2022 7:38 PM CODING ASSISTANT Height 162.6 cm (5' 4 ) 06/25/2022 7:38 PM CODING ASSISTANT Body Mass Index 25.75 06/25/2022 7:38 PM CODING ASSISTANT Plan of Treatment Health Maintenance Due Date Last Done Comments Colorectal Cancer Screening Colonoscopy (10 Years) 1962 Annual Physical 1965 Zoster Vaccines (1 of 2) 2012 Mammogram Screening 10/10/2019 10/09/2017 COVID-19 Vaccine ( season) 2024 09/09/2020, 08/05/2020 Influenza Adult (#1) 2024 04/21/2019, 05/20/2018, 05/15/2018, Additional history exists DTaP, Tdap and Td Vaccines (2 - Td or Tdap) 05/15/2028 05/15/2018 RSV Immunization or 60+ Years (1 - 1-dose 75+ series) 2037 Hepatitis C Completed 06/03/2020, 09/19/2016 Meningococcal B Vaccine Aged Out No l onger eligible based on patient's age to complete this topic Meningococcal Vaccine Aged Out No conner reyna eligible based on patient's age to complete this topic Pneumococcal Vaccine: Pediatrics (0 to 5 Years) and At-Risk Patients (6 to 64 Years) Aged Out No longer eligible based on patient's age to complete this topic RSV Immunizations Under 20 Months Aged Out No longer eligible based on patient's age to complete this topic Procedures Procedure Name Priority Date/Time Associated Diagnosis Comments HC HEPATITIS PANEL ACUTE STAT 06/03/2020 2:37 PM CODING ASSISTANT MG DIAG W DILEEP BILAT DIGI Routine 10/09/2017 4:09 PM CDT from Last 3 Months or Most Recently Relevant to Health Maintenance Results * HEPATITIS A,B,& C (06/03/2020 2:37 PM CODING ASSISTANT) HEPATITIS B SURFACE AG NON-REACTI VE NON-REACTI VE 06/03/2020 8:01 PM CODING ASSISTANT [facility] HEP B CORE TOTAL AB NON-REACTI VE NON-REACTI VE 06/03/2020 8:15 PM CODING ASSISTANT [facility] HEP B SURFACE AB NON-REACTI VE 06/03/2020 8:00 PM CODING ASSISTANT [facility] HAV IGM NON-REACTI VE NON-REACTI VE 06/03/2020 8:16 PM CODING ASSISTANT [facility] HEPATITIS C AB NON-REACTI VE NON-REACTI VE 06/03/2020 8:15 PM CODING ASSISTANT [facility] 06/03/2020 2:37 PM CODING ASSISTANT us Milton Riggins MD LABORATORY Final Resu lt [facility] [address] [id number], [place] [phone] * MG DIAG W DILEEP BILAT DIGI (10/09/2017 4:09 PM CDT) Anatomical Region Laterality Modality Breast Bilateral Mammography 10/09/2017 4:09 PM CDT 10/09/2017 4:09 PM CDT Narrative 10/09/2017 4:16 PM CDT ELIZABETH MADSEN ADMIT/SERVICE DATE: 10/09/17 ACCT: [id number] DISCHARGE DATE: : 1960 SEX: F ORD SITE: [facility] PT TYPE: REG CLI ORDERING MD: NICOLE RAUSCH NP STUDY DATE REPORT # ORDER # EXT ORDER ID 10/09/17 [id number] PROC CODE: [id number] PROCEDURE DESCRIPTION: MG DIAG DIG MAMMO W DILEEP BI IMAGING STUDIES: BILATERAL DIAGNOSTIC MAMMOGRAMS WITH COMPUTER-AIDED DETECTION WITH 2-D AND 3-D IMAGING. TOMOSYNTHESIS. DATE: 10/09/2017 2:55 PM HISTORY: OTHER - LUMP ON RIGHT SIDE . PALPABLE RIGHT BREAST LUMP FOR ONE MONTH. PAIN. COMPARISON: 01/23/2016. FINDINGS: 1. BILATERAL DIAGNOSTIC MAMMOGRAMS WITH COMPUTER DETECTION WITH 2-D AND 3-D IMAGING. TOMOSYNTHESIS. MILD SCATTERED FIBROGLANDULAR TISSUE PATTERN IS SIMILAR. BENIGN CALCIFICATIONS. A MARKER WAS PLACED OVER THE REGION OF PALPABLE ABNORMALITY AT THE 9 TO 10:00 POSITION OF THE RIGHT BREAST 12 CM FROM THE NIPPLE. THERE IS NORMAL UNDERLYING PARENCHYMA. NO PATHOLOGIC PROCESS. NO GROSS ABNORMALITY SEEN AT THIS SITE ON SAME-DAY ULTRASOUND.. 2. NO MALIGNANT MICROCALFCIFICATIONS, NEW DOMINANT MASSES, OR ARCHITECTURAL DISTORTION. 3. NO SKIN THICKENING OR NIPPLE RETRACTION. AXILLARY REGIONS ARE WITHIN NORMAL LIMITS. CONCLUSION: 1. NO MAMMOGRAPHIC EVIDENCE OF MALIGNANCY. 2. BI-RADS CATEGORY 2. IF PALPABLE ABNORMALITY PERSISTS FOLLOW-UP WITH SURGICAL CONSULTATION MAY BE OF BENEFIT. MQSA MAMMOGRAM CLASSIFICATION BI-RADS CATEGORY 0-NEED ADDITIONAL IMAGING EVALUATION BI-RADS CATEGORY 1-NEGATIVE BI-RADS CATEGORY 2-BENIGN FINDINGS BI-RADS CATEGORY 3-PROBABLY BENIGN FINDING-SHORT INTERVAL FOLLOWUP SUGGESTED BI-RADS CATEGORY 4-SUSPICIOUS ABNORMALITY-BIOPSY SHOULD BE CONSIDERED BI-RADS CATEGORY 5-HIGHLY SUGGESTIVE OF MALIGNANCY-APPROPRIATE ACTION SHOULD BE TAKEN A. A NEGATIVE REPORT SHOULD NOT DELAY A BIOPSY IF A DOMINANT OR CLINICALLY SUSPICIOUS MASS IS PRESENT. B. ADENOSIS AND DENSE BREASTS MAY OBSCURE AN UNDERLYING NEOPLASM. C. COMPUTER AIDED DETECTION UTILIZED IN THE INTERPRETATION OF THIS STUDY. ELECTRONICALLY SIGNED BY Mick HALE MD ON 10/09/2017 4:11 PM Procedure Note Bart Parker, - 05/09/2018 ELIZABETH MADSEN ADMIT/SERVICE DATE:10/09/17 ACCT: [id number] DISCHARGE DATE: : 1960 SEX: F [facility]D [facility]: [facility] PT TYPE: REG CLI ORDERING MD:NICOLE RAUSCH NP STUDY DATE REPORT # ORDER # EXT ORDER ID 10/09/17 [id number] PROC CODE: [id number] PROCEDURE DESCRIPTION: MG DIAG DIG MAMMO W DILEEP BI IMAGING STUDIES: BILATERAL DIAGNOSTIC MAMMOGRAMS WITH COMPUTER-AIDEDDETECTION WITH 2-D AND 3-D IMAGING. TOMOSYNTHESIS. DATE: 10/09/2017 2:55 PM HISTORY: OTHER - LUMP ON RIGHT SIDE . PALPABLE RIGHT BREAST LUMP FORONE MONTH. PAIN. COMPARISON: 01/23/2016. FINDINGS: 1. BILATERAL DIAGNOSTIC MAMMOGRAMS WITH COMPUTER DETECTION WITH 2-D AND3-D IMAGING. TOMOSYNTHESIS. MILD SCATTERED FIBROGLANDULAR TISSUE PATTERN IS SIMILAR.BENIGN CALCIFICATIONS. A MARKER WAS PLACED OVER THE REGION OF PALPABLE ABNORMALITY AT THE 9 TO10:00 POSITION OF THE RIGHT BREAST 12 CM FROM THE NIPPLE. THERE IS NORMAL UNDERLYING PARENCHYMA.NO PATHOLOGIC PROCESS. NO GROSS ABNORMALITY SEEN AT THIS SITE ON SAME-DAY ULTRASOUND.. 2. NO MALIGNANT MICROCALFCIFICATIONS, NEW DOMINANT MASSES, ORARCHITECTURAL DISTORTION. 3. NO SKIN THICKENING OR NIPPLE RETRACTION. AXILLARY REGIONS ARE WITHINNORMAL LIMITS. CONCLUSION: 1. NO MAMMOGRAPHIC EVIDENCE OF MALIGNANCY. 2. BI-RADS CATEGORY 2. IF PALPABLE ABNORMALITY PERSISTS FOLLOW-UP WITHSURGICAL CONSULTATION MAY BE OF BENEFIT. MQSA MAMMOGRAMCLASSIFICATION BI-RADS CATEGORY 0-NEED ADDITIONAL IMAGING EVALUATION BI-RADS CATEGORY 1-NEGATIVE BI-RADS CATEGORY 2-BENIGN FINDINGS BI-RADS CATEGORY 3-PROBABLY BENIGN FINDING-SHORT INTERVAL FOLLOWUP SUGGESTED BI-RADS CATEGORY 4-SUSPICIOUS ABNORMALITY-BIOPSY SHOULD BE CONSIDERED BI-RADS CATEGORY 5-HIGHLY SUGGESTIVE OF MALIGNANCY-APPROPRIATE ACTION SHOULD BE TAKEN A. A NEGATIVE REPORT SHOULD NOT DELAY A BIOPSY IF A DOMINANT ORCLINICALLY SUSPICIOUS MASS IS PRESENT. B. ADENOSIS AND DENSE BREASTS MAY OBSCURE AN UNDERLYING NEOPLASM. C. COMPUTER AIDED DETECTION UTILIZED IN THE INTERPRETATION OF THISSTUDY. ELECTRONICALLY SIGNED BY Mick HALE MD ON 10/09/2017 4:11 PM Nicole Rausch NP MAMMO Final Result from Last 3 Months or Most Recently Relevant to Health Maintenance Insurance [employer] Care Teams Senior Health Physics Technician Relationship Specialty Start Date End Date None, Provider, PCP - General 08/25/21
--- OUTSIDE RECORDS SUMMARY | 2024-08-30 05:22 | XMS_ITS | Clinical Summary ---
Author Organization [facility] Address [address] [place] [address] Care Team Providers Care Manager Skilled Name Role Phone Unknown, Provider Primary Care Provider Unavaila ble Source Comments [facility],non-owned Affiliates and Associated Physician Practices is amultiple site organization consisting of ambulatory clinics and hospital sitesin [place], [place], [place] and [place]. This disclosure is being madepursuant to the Care Everywhere program and may not contain all information available regarding this patient. Last updated 18.[facility] Allergies Active Allergy Reactions Criticality Noted Date [...] 30 days Active ergocalciferol (Drisdol) 1.25 MG (42489 UT) capsule Take 1 (one) capsule by mouth Active ferrous sulfate 325 (65 FE) MG tablet Take 1 (one) tablet by mouth once daily Active FLUoxetine (PROzac) 40 MG capsule Active fluticasone propionate (Flonase) 50 MCG/ACT nasal spray Active hydrOXYzine HCl (Atarax) 25 MG tablet Take 1 (one) tablet by mouth every 8 hours as needed Active thyroid (Matheson Thyroid) 60 MG tablet Active pantoprazole (Protonix) [...] 01/24/2023 12:29 PM CDT Plan of Treatment Health Maintenance Due Date Last Done Comments COLOGUARD (AGES 45-75) - COLON CA SCREENING 1962 COLON MONITORING 1962 COLONOSCOPY - COLON CA SCREENING 1962 CT COLONOGRAPHY - COLON CA SCREENING 1962 Colorectal Cancer Screening 1962 FIT - COLON CA SCREENING 1962 FLEX SIG - COLON CA SCREENING 1962 LIPID TESTING 1962 MAMMOGRAM 1962 PAP SMEAR 1962 HIV SCREENING 1977 HEPATITIS C SCREENING 04/22/1980 PNEUMOCOCCAL VACCINE 50+ (1 of 1 - PCV) 2012 ZOSTER VACCINE (1 of 2) 2012 COVID-19 VACCINE (3 - season) 2024 09/09/2020, 08/05/2020 INFLUENZA VACCINE (#1) 2024 9, 05/20/2018, 05/15/2018, Additional history exists DEPRESSION SCREENING 07/15/2024 SCREENING FOR DIABETES 01/05/2026 01/05/2023 DTAP/TDAP/TD VACCINES (2 - Td or Tdap) 01/05/2033 01/05/2023 Respiratory Syncytial Virus (RSV) Vaccine Pt: or over 60 yrs (1 - 1-dose 75+ series) 2037 HEPATITIS B VACCINE Aged Out No longe r eligible based on patient's age to complete this topic HIB VACCINE Aged Out No longer eligi ble based on patient's age to complete this topic HPV VACCINE Aged Out No longer eligi ble based on patient's age to complete this topic MENINGOCOCCAL (Group B) VACCINE Aged Out No longer eligible based on patient's age to complete this topic MENINGOCOCCAL VACCINE Aged Out No conner reyna eligible based on patient's age to complete this topic PNEUMOCOCCAL VACCINE Aged Out No long er eligible based on patient's age to complete this topic Procedures Procedure Name Priority Date/Time Associated Diagnosis Comments BASIC METABOLIC PANEL (CALCIUM TOTAL) STAT 01/05/2023 12:20 AM CDT from Last 3 Months or Most Recently Relevant to Health Maintenance Results * (ABNORMAL) BASIC METABOLIC PANEL (CALCIUM TOTAL) (01/05/2023 12:20 AM CDT) BUN 13 7 - 26 mg/dL 01/05/2023 12:57 AM [facility] Creatinine 0.74 0.56 - 0.96 mg/dL 01/05/2023 12:57 AM [facility] Sodium 131(L) 136 - 145 mmol/L 01/05/2023 12:57 AM [facility] Potassium 3.0(L) 3.5 - 4.5 mmol/L 01/05/2023 12:57 AM [facility] Chloride 99 98 - 107 mmol/L 01/05/2023 12:57 AM [facility] CO2 22 22 - 29 mmol/L 01/05/2023 12:57 AM [facility] Glucose 115 70 - 115 mg/dL 01/05/2023 12:57 AM [facility] Calcium 8.9 8.4 - 10.2 mg/dL 01/05/2023 12:57 AM [facility] Anion Gap 13 8 - 18 01/05/2023 12:57 AM [facility] BUN/Creatinine Ratio 18 7 - 23 01/05/2023 12:57 AM [facility] Osmolality Calculated 273 270 - 300 mOsm/kg 01/05/2023 12:57 AM [facility] eGFR by CKD-EPI 63(L) >=90 mL/min/1.7 3 m2 01/05/2023 12:57 AM [facility] Blood BLOOD SPECIMEN / Unknown Venipuncture / Unknown 01/05/2023 12:[address] [facility] 01/05/2023 12:[address] [facility] Familia Rausch MD LAB - CHEMISTRY GONZALO GU[facility] Organization Address City/State/ZIP Co de Phone Number [facility] [address] [place] [address], [facility] [phone] from Last 3 Months or Most Recently Relevant to Health Maintenance Care Teams Manager Skilled Relationship Specialty Start Date End Date Unknown, Provider PCP - General 01/05/23
--- OUTSIDE RECORDS SUMMARY | 2024-08-30 05:22 | XMS_ITS | Patient Health Summary ---
Author Organization [facility] Address [address] [place] [address] Care Team Providers Care Rn Procedure Name Role Phone Unknown, Provider Primary Care Provider Unavaila ble Note from [facility],non-owned Affiliates and Associated Physician Practices is amultiple site organization consisting of ambulatory clinics and hospital sitesin [place], [place], [place] and [place]. This disclosure is being madepursuant to the Care Everywhere program and may not contain all information available regarding this patient. Last updated 18.[facility] Allergies * Naproxen(Unknown) Medications * Be aware that medications may not be up to date on this document. Alwaysverify current medications with the patient. * acetaminophen (Tylenol) 325 MG tablet(Started 01/05/2023) Take 2 (two) tablets by mouth every 4 hours as needed for Fever or Pain Maximum allowable Acetaminophen amount = 4 Grams (4000 mg) / 24 hours. * methocarbamol (Robaxin) 750 MG tablet(Started 01/05/2023) Take 1 (one) tablet by mouth every 6 hours as needed for Muscle Spasms * albuterol HFA (Proventil; Ventolin; Proair) 108 (90 Base) MCG/ACT inhaler * Ascorbic Acid 1000 MG Take 1 (one) tablet by mouth 2 times daily * budesonide-formoterol (Symbicort) 160-4.5 MCG/ACT inhaler Inhale 2 (two) puffs by mouth once daily as needed * buPROPion SR 12hr (Wellbutrin-SR) 150 MG tablet Take 1 (one) tablet by mouth 2 times daily * cyanocobalamin (Vitamin B-12) injection Inject 1,000 (one thousand) mcg subcutaneously every 30 days * ergocalciferol (Drisdol) 1.25 MG (63596 UT) capsule Take 1 (one) capsule by mouth * ferrous sulfate 325 (65 FE) MG tablet Take 1 (one) tablet by mouth once daily * FLUoxetine (PROzac) 40 MG capsule * fluticasone propionate (Flonase) 50 MCG/ACT nasal spray * hydrOXYzine HCl (Atarax) 25 MG tablet Take 1 (one) tablet by mouth every 8 hours as needed * thyroid ([place]umby Thyroid) 60 MG tablet * pantoprazole (Protonix) 40 MG packet take 1 packet by oral route every day mixed in 1 teaspoonful of applesauce or apple juice * lisinopril (Prinivil; Zestril) 2.5 MG tablet * lidocaine (Lidoderm) 5 % patch Immunizations * TDAP (7yrs+)(Given 01/05/2023) Social History Tobacco Use Types Packs/Day Years [...] Mass Index 26.68 01/24/2023 12:29 PM CDT Procedures * CARDIAC EKG ORDER(Performed 01/07/2023) * CARDIAC EKG ORDER(Performed 01/07/2023) * URINE DRUG SCREEN IMMUNOASSAY(Performed 01/05/2023) * EKG 12-LEAD(Performed 01/05/2023) Performed for Trauma * CT LUMBAR SPINE WO CONTRAST(Performed 01/05/2023) Performed for Trauma * CT THORACIC SPINE WO CONTRAST(Performed 01/05/2023) Performed for Trauma * CT CHEST ABDOMEN PELVIS W CONT(Performed 01/05/2023) Performed for Trauma * CT CERVICAL SPINE WO CONTRAST(Performed 01/05/2023) Performed for Trauma * CT FACIAL BONES WO CONTRAST(Performed 01/05/2023) Performed for Trauma * CT HEAD WO CONTRAST(Performed 01/05/2023) Performed for Trauma * XR PELVIS 1 OR 2VW(Performed 01/05/2023) Performed for Trauma * XR CHEST 1VW PORTABLE(Performed 01/05/2023) Performed for Trauma * TYPE + SCREEN PANEL(Performed 01/05/2023) * TEG 6 GLOBAL HEMOSTASIS W/ LYSIS(Performed 01/05/2023) * TEG 6S PLATELET MAPPING(Performed 01/05/2023) * PTT [facility](Performed 01/05/2023) * PT-INR [facility](Performed 01/05/2023) * CBC W AUTO DIFFERENTIAL(Performed 01/05/2023) * BASIC METABOLIC PANEL (CALCIUM TOTAL)(Performed 01/05/2023) * ALCOHOL ETHYL BLOOD(Performed 01/05/2023) * DERMATOPATHOLOGY(Performed 01/03/2022) Results * CARDIAC EKG ORDER (01/07/2023 3:32 PM CDT) Only the most recent of2 resultswithin the time period is included. Narrative 01/07/2023 3:32 PM CDT Ordered by an unspecified provider. Scanned Document CARDIAC SERVICES ORD ERABLES * URINE DRUG SCREEN IMMUNOASSAY (01/05/2023 4:32 AM CDT) Amphetamines Screen Urine Negative Negative: < 1000 ng/mL 01/05/2023 4:57 AM CDT [facility] Barbiturates Screen Urine Negative Negative: < 200 ng/mL 01/05/2023 4:57 AM CDT [facility] Benzodiazepine Screen Urine Negative Negative: < 200 ng/mL 01/05/2023 4:[facility] Opiates Urine Negative Negative: < 300 ng/mL 01/05/2023 4:57 AM [facility] Cocaine Metabolites Urine Negative Negative: < 300 ng/mL 01/05/2023 4:57 AM [facility] Phencyclidine Screen Urine Negative Negative: < 25 ng/ml 01/05/2023 4:57 AM T [facility] Cannabinoids Screen Urine Negative Negative: <50 ng/mL 01/05/2023 4:57 AM [facility] Methadone Screen Urine Negative Negative: < 300 ng/mL 01/05/2023 4:57 AM [facility] Fentanyl Screen Urine Negative Negative: <1.5 ng/mL 01/05/2023 4:57 AM [facility] Urine URINE / Unknown Collection / Unknown 01/05/2023 4:32 AM CDT 01/05/2023 4:36 AM CDT Narrative [facility] - 01/05/2023 4:57 AM CDT The Urine Toxicology Screening Panel does not screen for Propoxyphene, Meprobamate, Carisoprodol, Trazodone, [id number]-[id number]-ihgmfmy medications and/or volatiles (Acetone, Isopropanol, Methanol or Ethylene Glycol). Ethanol, Salicylate, Acetaminophen, Tricyclic Antidepressants and several therapeutic drugs may be individually assayed in serum or plasma specimen. Toxicology testing by the [facility] is an aid to medical diagnosis and treatment of patients. No documented chain of custody was maintained. Results are intended to be used for clinical purposes only. Familia Rausch MD LAB - URINE CHEMISTR Y ORDERABLES [facility] [address] [place] [address], [facility] [phone] * EKG 12-LEAD (01/05/2023 3:09 AM CDT) Ventricular Rate 70 BPM [facility] MUSE Atrial Rate 70 BPM [facility] MUSE P-R Interval 154 ms [facility] MUSE QRS Duration ms 84 ms [facility] MUSE Q-T Interval ms 410 ms [facility] MUSE QTC Calculation (Bezet) 442 ms [facility] MUSE Calculated P [place] 66 degrees [facility] MUSE Calculated R [place] 49 degrees [facility] MUSE Calculated T [place] 65 degrees [facility] MUSE Interpretation EKG NORMAL SINUS RHYTHM NORMAL ECG NO PREVIOUS ECGS AVAILABLE Confirmed by NARAYAN MATHUR MD ([id number]) on 01/07/2023 10:38:51 AM [facility] MUSE 01/05/2023 3:09 AM CDT 01/07/2023 10:38 AM CDT Sayda Triplett MD ECG ORDERABLES [facility] MUSE * CT CHEST ABDOMEN PELVIS W CONT - Abdomen-pelvis trauma, blunt or penetrating (01/05/2023 12:51 AM CDT) Anatomical Region Laterality Modality Chest, Abdomen, Pelvis Computed Tomography 01/05/2023 12:4 7 AM CDT Impressions 01/05/2023 9:59 AM CDT Impression: 1.Soft tissue gas in the left gluteal region. 2.Otherwise no acute visceral, vascular, or osseus injury identified in the chest, abdomen, or pelvis. > Dictated by Tavo Lockhart MD (professor of radiology). I, Sadi Robertson MD have personally reviewed and interpreted this examination/study. > Interpreting Provider: Sadi Robertson MD on 01/05/2023 9:59 AM Narrative 01/05/2023 9:59 AM CDT PROCEDURE: CT CHEST ABDOMEN PELVIS W CONT, DATE/TIME OF EXAM: 01/05/2023 12:52 AM, LOCATION [facility] INDICATION: Trauma COMPARISON: None. TECHNIQUE: CT of the chest, abdomen, and pelvis was performed after the uneventful administration of 100 mL of Isovue 370 intravenous contrast according to standard protocol. Findings: Chest: Lower Neck and Axillae: Normal. Lungs: Mild bilateral dependent atelectasis is present. No suspicious pulmonary nodules are identified. No pleural fluid or pneumothorax is present. Heart and Pericardium: The cardiac chambers are normal in size. No pericardial fluid or thickening is present. Mediastinum and Darlene: No mediastinal hemorrhage is present. No enlarged lymph nodes are present. Thoracic Vasculature: The aorta and its branch vessels are atherosclerotic. Abdomen/pelvis: Liver: Normal. Gallbladder and Bile Ducts: The gallbladder is surgically absent. There is mild intrahepatic and extrahepatic biliary ductal dilatation, likely secondary to the postcholecystectomy state. Spleen: Normal. Pancreas: Normal. Adrenals: Normal. Kidneys: Multiple subcentimeter hypoattenuating lesions in both kidneys are too small to characterize, but likely represent cysts. There is no evidence hydronephrosis or nephrolithiasis. Gastrointestinal: Postsurgical changes are present near the gastroesophageal junction, which may be related to a hiatal hernia repair. The stomach and visualized loops of large and small bowel are otherwise unremarkable. Normal appendix. Mesentery/Peritoneum/Retroperitoneum: No free intraperitoneal air. No free fluid in the abdomen or pelvis. Bladder: Normal. Reproductive Organs: The uterus is normal. Abdominal Vasculature: Atherosclerotic calcification of the aorta and its branch vessels. Bones: Bone windows demonstrate no suspicious lytic or blastic lesions. The visible osseous structures are intact. Degenerative changes are seen in the lower lumbar spine. Soft tissues: Postsurgical changes of a ventral hernia repair are present. Soft tissue gas in the left gluteal region. Procedure Note Sadi Robertson MD - 01/07/2023 PROCEDURE: CT CHEST ABDOMEN PELVIS W CONT, DATE/TIME OF EXAM:01/05/2023 12:52 AM, LOCATION [facility] INDICATION: Trauma COMPARISON: None. TECHNIQUE: CT of the chest, abdomen, and pelvis was performed after the uneventful administration of 100 mL of Isovue 370 intravenous contrast according to standard protocol. Findings: Chest: Lower Neck and Axillae: Normal. Lungs: Mild bilateral dependent atelectasis is present. No suspicious pulmonary nodules are identified. No pleural fluid or pneumothorax is present. Heart and Pericardium: The cardiac chambers are normal in size. No pericardial fluid orthickening is present. Mediastinum and Darlene: No mediastinal hemorrhage is present. No enlarged lymph nodes arepresent. Thoracic Vasculature: The aorta and its branch vessels are atherosclerotic. Abdomen/pelvis: Liver: Normal. Gallbladder and Bile Ducts: The gallbladder is surgically absent. There is mild intrahepatic and extrahepatic biliary ductal dilatation, likely secondary to the postcholecystectomy state. Spleen: Normal. Pancreas: Normal. Adrenals: Normal. Kidneys: Multiple subcentimeter hypoattenuating lesions in both kidneys are too small to characterize, but likely represent cysts. There is no evidence hydronephrosis or nephrolithiasis. Gastrointestinal: Postsurgical changes are present near the gastroesophageal junction,which may be related to a hiatal hernia repair. The stomach and visualizedloops of large and small bowel are otherwise unremarkable. Normal appendix. Mesentery/Peritoneum/Retroperitoneum: No free intraperitoneal air. No free fluid in the abdomen or pelvis. Bladder: Normal. Reproductive Organs: The uterus is normal. Abdominal Vasculature: Atherosclerotic calcification of the aorta and its branch vessels. Bones: Bone windows demonstrate no suspicious lytic or blastic lesions. The visible osseous structures are intact. Degenerative changes are seen inthe lower lumbar spine. Soft tissues: Postsurgical changes of a ventral hernia repair are present. Soft tissue gas in the left gluteal region. Impression: 1.Soft tissue gas in the left gluteal region. 2.Otherwise no acute visceral, vascular, or osseus injury identified inthe chest, abdomen, or pelvis. > Dictated by Tavo Lockhart MD (professor of radiology). Sadi Reddy MD have personally reviewed and interpreted this examination/study. > Interpreting Provider: Sadi Robertson MD on 01/05/2023 9:59 AM Familia Rausch MD CT ORDERABLES * CT LUMBAR SPINE WO CONTRAST - T/L-spine trauma, Spine fracture (01/05/2023 12:51 AM CDT) Anatomical Region Laterality Modality Spine Computed Tomogra phy 01/05/2023 12:4 2 AM CDT Impressions 01/05/2023 10:50 AM CDT IMPRESSION: Head/Facial bones: 1.No acute intracranial abnormality. 2. Moderate to large volume frontal scalp. No edema extending up to the vertex superiorly and the supraorbital region inferiorly, measuring approximately 1.9 cm in thickness. There is a laceration with subcutaneous emphysema along the left frontal scalp. No facial or calvarial bone fractures noted Cervical, thoracic and lumbar spine: No fracture of the cervical, thoracic and lumbar spine. Please refer to the separately dictated report of CT scan of the chest, abdomen and pelvis for intrathoracic and intra-abdominal findings. Report dictated by Meng Moon MD (vice president talent management). La Reddy MD have personally reviewed and interpreted this examination/study. > Interpreting Provider: La Morris MD on 01/05/2023 10:50 AM Narrative 01/05/2023 10:50 AM CDT PROCEDURE: CT HEAD WO CONTRAST, CT LUMBAR SPINE WO CONTRAST, CT THORACIC SPINE WO CONTRAST, CT CERVICAL SPINE WO CONTRAST, CT FACIAL BONES WO CONTRAST, DATE/TIME OF EXAM: 01/05/2023 12:52 AM, LOCATION [facility] INDICATION: Trauma ADDITIONAL CLINICAL INFORMATION: COMPARISON: None. TECHNIQUE: CT of the head, facial bones and cervical spine was performed without intravenous contrast according to standard protocol. CT images of the thoracic spine and lumbar spine were reformatted from the concurrently obtained CT scan of the chest, abdomen and pelvis with intravenous contrast. CT dose reduction technique was used, including Automated Exposure Control. FINDINGS: Head: Evaluation of the posterior fossa is limited due to significant artifact. There is no acute intracranial hemorrhage. There is no hydrocephalus, midline shift or extra-axial fluid collection. The brain parenchyma is normal in appearance. Craniofacial bones/Soft tissues: The craniofacial bones are intact. There is a moderate to large volume scalp hematoma hematoma along the frontal/supraorbital scalp extending along the extending superiorly up to the vertex measuring about 1.4 to 1.9 cm in thickness.. There is a laceration with subcutaneous emphysema along the left lateral frontal scalp (image [address] of the head). There is no adjacent calvarial or facial bone fractures noted The orbital contents are within normal limits. There is no intraorbital hematoma. The paranasal sinuses are clear. The mastoid cavities are underpneumatized. Apical lucency along the left lateral incisor incisor. Cervical spine: There is no fracture or traumatic subluxation. The prevertebral soft tissues are within normal limits. There is is multilevel mild degenerative disc disease with disc space narrowing and osteophytic endplate disease most significant at C5-C6 and C6-C7. Endplate irregularity at the level of C7 vertebral body most likely secondary to degenerative changes.There are no aggressive appearing lytic or sclerotic bone lesions. No significant central canal stenosis. Severe facet arthropathy at the level of right C3-C4 and left C4-C5, mild facet arthropathy at other levels.. Severe neural foramina stenosis on the left-sided the level of C4-C5 and right-sided at the level of C3-C4 moderate right-sided neural foraminal stenosis at the level of C5-C6, and no significant neural foraminal stenosis at other levels. Thoracic spine: There is no fracture or traumatic subluxation. Levocurvature of the thoracic spine. There is multilevel mild degenerative changes throughout the thoracic spine. There is no severe central canal stenosis. Multilevel mild to moderate neural foraminal stenosis most prominent at the level of T10-T11 bilaterally..There are no aggressive appearing lytic or sclerotic bone lesions. Lumbar spine: There is no fracture or traumatic subluxation of the lumbar spine. The included sacrum is intact. Multilevel mild mild degenerative changes throughout the lumbar spine, most prominent at the level of L5-S1 with severe disc space narrowing and vacuum degeneration. No significant central canal stenosis, moderate to severe neural foramina stenosis at the level of L5-S1 bilaterally.There are no aggressive appearing lytic or sclerotic bone lesions. The paraspinal soft tissues are unremarkable. Procedure Note La Morris MD - 01/07/2023 PROCEDURE: CT HEAD WO CONTRAST, CT LUMBAR SPINE WO CONTRAST, CTTHORACIC SPINE WO CONTRAST, CT CERVICAL SPINE WO CONTRAST, CT FACIAL BONES WO CONTRAST, DATE/TIME OF EXAM: 01/05/2023 12:52 AM, LOCATION [facility] INDICATION: Trauma ADDITIONAL CLINICAL INFORMATION: COMPARISON: None. TECHNIQUE: CT of the head, facial bones and cervical spine was performed without intravenous contrast according to standard protocol. CT imagesof the thoracic spine and lumbar spine were reformatted from theconcurrently obtained CT scan of the chest, abdomen and pelvis with intravenous contrast. CT dose reduction technique was used, including Automated Exposure Control. FINDINGS: Head: Evaluation of the posterior fossa is limited due to significantartifact. There is no acute intracranial hemorrhage. There is no hydrocephalus, midline shift or extra-axial fluid collection. The brain parenchyma is normal in appearance. Craniofacial bones/Soft tissues: The craniofacial bones are intact. There is a moderate to large volume scalp hematoma hematoma along the frontal/supraorbital scalp extending along the extending superiorly up to the vertex measuring about 1.4 to1.9 cm in thickness.. There is a laceration with subcutaneous emphysemaalong the left lateral frontal scalp (image [address] of the head).There is no adjacent calvarial or facial bone fractures noted The orbital contents are within normal limits. There is no intraorbital hematoma. The paranasal sinuses are clear. The mastoid cavities areunderpneumatized. Apical lucency along the left lateral incisor incisor. Cervical spine: There is no fracture or traumatic subluxation. The prevertebral soft tissues are within normal limits. There is is multilevel mild degenerative disc disease with disc space narrowing and osteophytic endplate disease most significant at C5-C6 and C6-C7. Endplate irregularity at the level of C7 vertebral body mostlikely secondary to degenerative changes.There are no aggressive appearinglytic or sclerotic bone lesions. No significant central canal stenosis. Severe facet arthropathy at the level of right C3-C4 and left C4-C5, mild facet arthropathy at other levels.. Severe neural foramina stenosis on the left-sided the level of C4-C5 and right-sided at the level of C3-C4 moderate right-sided neural foraminal stenosis at the level of C5-C6,and no significant neural foraminal stenosis at other levels. Thoracic spine: There is no fracture or traumatic subluxation. Levocurvature of the thoracic spine. There is multilevel mild degenerative changes throughout the thoracic spine. There is no severe central canal stenosis. Multilevel mild to moderate neural foraminal stenosis most prominent at the level [id number] bilaterally..There are no aggressive appearing lytic or sclerotic bone lesions. Lumbar spine: There is no fracture or traumatic subluxation of the lumbar spine. The included sacrum is intact. Multilevel mild mild degenerative changes throughout the lumbar spine,most prominent at the level of L5-S1 with severe disc space narrowing andvacuum degeneration. No significant central canal stenosis, moderate to severe neural foramina stenosis at the level of L5-S1 bilaterally.There are no aggressive appearing lytic or sclerotic bone lesions. The paraspinalsoft tissues are unremarkable. IMPRESSION: Head/Facial bones: 1.No acute intracranial abnormality. 2. Moderate to large volume frontal scalp. No edema extending up to the vertex superiorly and the supraorbital region inferiorly, measuring approximately 1.9 cm in thickness. There is a laceration withsubcutaneous emphysema along the left frontal scalp. No facial or calvarial bone fractures noted Cervical, thoracic and lumbar spine: No fracture of the cervical, thoracic and lumbar spine. Please refer to the separately dictated report of CT scan of the chest, abdomen and pelvis for intrathoracic and intra-abdominal findings. Report dictated by Meng Moon MD (vice president talent management). La Reddy MD have personally reviewed and interpreted this examination/study. > Interpreting Provider: La Morris MD on 01/05/2023 10:50 AM Familia Rausch MD CT ORDERABLES * CT THORACIC SPINE WO CONTRAST - T/L-spine trauma, spine fracture (01/05/2023 12:51 AM CDT) Anatomical Region Laterality Modality Spine Computed Tomogra phy 01/05/2023 12:4 2 AM CDT Impressions 01/05/2023 10:50 AM CDT IMPRESSION: Head/Facial bones: 1.No acute intracranial abnormality. 2. Moderate to large volume frontal scalp. No edema extending up to the vertex superiorly and the supraorbital region inferiorly, measuring approximately 1.9 cm in thickness. There is a laceration with subcutaneous emphysema along the left frontal scalp. No facial or calvarial bone fractures noted Cervical, thoracic and lumbar spine: No fracture of the cervical, thoracic and lumbar spine. Please refer to the separately dictated report of CT scan of the chest, abdomen and pelvis for intrathoracic and intra-abdominal findings. Report dictated by Meng Moon MD (vice president talent management). La Reddy MD have personally reviewed and interpreted this examination/study. > Interpreting Provider: La Morris MD on 01/05/2023 10:50 AM Narrative 01/05/2023 10:50 AM CDT PROCEDURE: CT HEAD WO CONTRAST, CT LUMBAR SPINE WO CONTRAST, CT THORACIC SPINE WO CONTRAST, CT CERVICAL SPINE WO CONTRAST, CT FACIAL BONES WO CONTRAST, DATE/TIME OF EXAM: 01/05/2023 12:52 AM, LOCATION [facility] INDICATION: Trauma ADDITIONAL CLINICAL INFORMATION: COMPARISON: None. TECHNIQUE: CT of the head, facial bones and cervical spine was performed without intravenous contrast according to standard protocol. CT images of the thoracic spine and lumbar spine were reformatted from the concurrently obtained CT scan of the chest, abdomen and pelvis with intravenous contrast. CT dose reduction technique was used, including Automated Exposure Control. FINDINGS: Head: Evaluation of the posterior fossa is limited due to significant artifact. There is no acute intracranial hemorrhage. There is no hydrocephalus, midline shift or extra-axial fluid collection. The brain parenchyma is normal in appearance. Craniofacial bones/Soft tissues: The craniofacial bones are intact. There is a moderate to large volume scalp hematoma hematoma along the frontal/supraorbital scalp extending along the extending superiorly up to the vertex measuring about 1.4 to 1.9 cm in thickness.. There is a laceration with subcutaneous emphysema along the left lateral frontal scalp (image [address] of the head). There is no adjacent calvarial or facial bone fractures noted The orbital contents are within normal limits. There is no intraorbital hematoma. The paranasal sinuses are clear. The mastoid cavities are underpneumatized. Apical lucency along the left lateral incisor incisor. Cervical spine: There is no fracture or traumatic subluxation. The prevertebral soft tissues are within normal limits. There is is multilevel mild degenerative disc disease with disc space narrowing and osteophytic endplate disease most significant at C5-C6 and C6-C7. Endplate irregularity at the level of C7 vertebral body most likely secondary to degenerative changes.There are no aggressive appearing lytic or sclerotic bone lesions. No significant central canal stenosis. Severe facet arthropathy at the level of right C3-C4 and left C4-C5, mild facet arthropathy at other levels.. Severe neural foramina stenosis on the left-sided the level of C4-C5 and right-sided at the level of C3-C4 moderate right-sided neural foraminal stenosis at the level of C5-C6, and no significant neural foraminal stenosis at other levels. Thoracic spine: There is no fracture or traumatic subluxation. Levocurvature of the thoracic spine. There is multilevel mild degenerative changes throughout the thoracic spine. There is no severe central canal stenosis. Multilevel mild to moderate neural foraminal stenosis most prominent at the level of T10-T11 bilaterally..There are no aggressive appearing lytic or sclerotic bone lesions. Lumbar spine: There is no fracture or traumatic subluxation of the lumbar spine. The included sacrum is intact. Multilevel mild mild degenerative changes throughout the lumbar spine, most prominent at the level of L5-S1 with severe disc space narrowing and vacuum degeneration. No significant central canal stenosis, moderate to severe neural foramina stenosis at the level of L5-S1 bilaterally.There are no aggressive appearing lytic or sclerotic bone lesions. The paraspinal soft tissues are unremarkable. Procedure Note La Morris MD - 01/07/2023 PROCEDURE: CT HEAD WO CONTRAST, CT LUMBAR SPINE WO CONTRAST, CTTHORACIC SPINE WO CONTRAST, CT CERVICAL SPINE WO CONTRAST, CT FACIAL BONES WO CONTRAST, DATE/TIME OF EXAM: 01/05/2023 12:52 AM, LOCATION [facility] INDICATION: Trauma ADDITIONAL CLINICAL INFORMATION: COMPARISON: None. TECHNIQUE: CT of the head, facial bones and cervical spine was performed without intravenous contrast according to standard protocol. CT imagesof the thoracic spine and lumbar spine were reformatted from theconcurrently obtained CT scan of the chest, abdomen and pelvis with intravenous contrast. CT dose reduction technique was used, including Automated Exposure Control. FINDINGS: Head: Evaluation of the posterior fossa is limited due to significantartifact. There is no acute intracranial hemorrhage. There is no hydrocephalus, midline shift or extra-axial fluid collection. The brain parenchyma is normal in appearance. Craniofacial bones/Soft tissues: The craniofacial bones are intact. There is a moderate to large volume scalp hematoma hematoma along the frontal/supraorbital scalp extending along the extending superiorly up to the vertex measuring about 1.4 to1.9 cm in thickness.. There is a laceration with subcutaneous emphysemaalong the left lateral frontal scalp (image [address] of the head).There is no adjacent calvarial or facial bone fractures noted The orbital contents are within normal limits. There is no intraorbital hematoma. The paranasal sinuses are clear. The mastoid cavities areunderpneumatized. Apical lucency along the left lateral incisor incisor. Cervical spine: There is no fracture or traumatic subluxation. The prevertebral soft tissues are within normal limits. There is is multilevel mild degenerative disc disease with disc space narrowing and osteophytic endplate disease most significant at C5-C6 and C6-C7. Endplate irregularity at the level of C7 vertebral body mostlikely secondary to degenerative changes.There are no aggressive appearinglytic or sclerotic bone lesions. No significant central canal stenosis. Severe facet arthropathy at the level of right C3-C4 and left C4-C5, mild facet arthropathy at other levels.. Severe neural foramina stenosis on the left-sided the level of C4-C5 and right-sided at the level of C3-C4 moderate right-sided neural foraminal stenosis at the level of C5-C6,and no significant neural foraminal stenosis at other levels. Thoracic spine: There is no fracture or traumatic subluxation. Levocurvature of the thoracic spine. There is multilevel mild degenerative changes throughout the thoracic spine. There is no severe central canal stenosis. Multilevel mild to moderate neural foraminal stenosis most prominent at the level [id number] bilaterally..There are no aggressive appearing lytic or sclerotic bone lesions. Lumbar spine: There is no fracture or traumatic subluxation of the lumbar spine. The included sacrum is intact. Multilevel mild mild degenerative changes throughout the lumbar spine,most prominent at the level of L5-S1 with severe disc space narrowing andvacuum degeneration. No significant central canal stenosis, moderate to severe neural foramina stenosis at the level of L5-S1 bilaterally.There are no aggressive appearing lytic or sclerotic bone lesions. The paraspinalsoft tissues are unremarkable. IMPRESSION: Head/Facial bones: 1.No acute intracranial abnormality. 2. Moderate to large volume frontal scalp. No edema extending up to the vertex superiorly and the supraorbital region inferiorly, measuring approximately 1.9 cm in thickness. There is a laceration withsubcutaneous emphysema along the left frontal scalp. No facial or calvarial bone fractures noted Cervical, thoracic and lumbar spine: No fracture of the cervical, thoracic and lumbar spine. Please refer to the separately dictated report of CT scan of the chest, abdomen and pelvis for intrathoracic and intra-abdominal findings. Report dictated by Meng Moon MD (vice president talent management). I, La Morris MD have personally reviewed and interpreted this examination/study. > Interpreting Provider: La Morris MD on 01/05/2023 10:50 AM Familia Rausch MD CT ORDERABLES * CT CERVICAL SPINE WO CONTRAST - C-Spine Trauma, Spine fracture (01/05/2023 12:51 AM CDT) Anatomical Region Laterality Modality Spine Computed Tomogra phy 01/05/2023 12:4 2 AM CDT Impressions 01/05/2023 10:50 AM CDT IMPRESSION: Head/Facial bones: 1.No acute intracranial abnormality. 2. Moderate to large volume frontal scalp. No edema extending up to the vertex superiorly and the supraorbital region inferiorly, measuring approximately 1.9 cm in thickness. There is a laceration with subcutaneous emphysema along the left frontal scalp. No facial or calvarial bone fractures noted Cervical, thoracic and lumbar spine: No fracture of the cervical, thoracic and lumbar spine. Please refer to the separately dictated report of CT scan of the chest, abdomen and pelvis for intrathoracic and intra-abdominal findings. Report dictated by Meng Moon MD (vice president talent management). I, La Morris MD have personally reviewed and interpreted this examination/study. > Interpreting Provider: aL Morris MD on 01/05/2023 10:50 AM Narrative 01/05/2023 10:50 AM CDT PROCEDURE: CT HEAD WO CONTRAST, CT LUMBAR SPINE WO CONTRAST, CT THORACIC SPINE WO CONTRAST, CT CERVICAL SPINE WO CONTRAST, CT FACIAL BONES WO CONTRAST, DATE/TIME OF EXAM: 01/05/2023 12:52 AM, LOCATION [facility] INDICATION: Trauma ADDITIONAL CLINICAL INFORMATION: COMPARISON: None. TECHNIQUE: CT of the head, facial bones and cervical spine was performed without intravenous contrast according to standard protocol. CT images of the thoracic spine and lumbar spine were reformatted from the concurrently obtained CT scan of the chest, abdomen and pelvis with intravenous contrast. CT dose reduction technique was used, including Automated Exposure Control. FINDINGS: Head: Evaluation of the posterior fossa is limited due to significant artifact. There is no acute intracranial hemorrhage. There is no hydrocephalus, midline shift or extra-axial fluid collection. The brain parenchyma is normal in appearance. Craniofacial bones/Soft tissues: The craniofacial bones are intact. There is a moderate to large volume scalp hematoma hematoma along the frontal/supraorbital scalp extending along the extending superiorly up to the vertex measuring about 1.4 to 1.9 cm in thickness.. There is a laceration with subcutaneous emphysema along the left lateral frontal scalp (image [address] of the head). There is no adjacent calvarial or facial bone fractures noted The orbital contents are within normal limits. There is no intraorbital hematoma. The paranasal sinuses are clear. The mastoid cavities are underpneumatized. Apical lucency along the left lateral incisor incisor. Cervical spine: There is no fracture or traumatic subluxation. The prevertebral soft tissues are within normal limits. There is is multilevel mild degenerative disc disease with disc space narrowing and osteophytic endplate disease most significant at C5-C6 and C6-C7. Endplate irregularity at the level of C7 vertebral body most likely secondary to degenerative changes.There are no aggressive appearing lytic or sclerotic bone lesions. No significant central canal stenosis. Severe facet arthropathy at the level of right C3-C4 and left C4-C5, mild facet arthropathy at other levels.. Severe neural foramina stenosis on the left-sided the level of C4-C5 and right-sided at the level of C3-C4 moderate right-sided neural foraminal stenosis at the level of C5-C6, and no significant neural foraminal stenosis at other levels. Thoracic spine: There is no fracture or traumatic subluxation. Levocurvature of the thoracic spine. There is multilevel mild degenerative changes throughout the thoracic spine. There is no severe central canal stenosis. Multilevel mild to moderate neural foraminal stenosis most prominent at the level of T10-T11 bilaterally..There are no aggressive appearing lytic or sclerotic bone lesions. Lumbar spine: There is no fracture or traumatic subluxation of the lumbar spine. The included sacrum is intact. Multilevel mild mild degenerative changes throughout the lumbar spine, most prominent at the level of L5-S1 with severe disc space narrowing and vacuum degeneration. No significant central canal stenosis, moderate to severe neural foramina stenosis at the level of L5-S1 bilaterally.There are no aggressive appearing lytic or sclerotic bone lesions. The paraspinal soft tissues are unremarkable. Procedure Note La Morris MD - 01/07/2023 PROCEDURE: CT HEAD WO CONTRAST, CT LUMBAR SPINE WO CONTRAST, CTTHORACIC SPINE WO CONTRAST, CT CERVICAL SPINE WO CONTRAST, CT FACIAL BONES WO CONTRAST, DATE/TIME OF EXAM: 01/05/2023 12:52 AM, LOCATION [facility] INDICATION: Trauma ADDITIONAL CLINICAL INFORMATION: COMPARISON: None. TECHNIQUE: CT of the head, facial bones and cervical spine was performed without intravenous contrast according to standard protocol. CT imagesof the thoracic spine and lumbar spine were reformatted from theconcurrently obtained CT scan of the chest, abdomen and pelvis with intravenous contrast. CT dose reduction technique was used, including Automated Exposure Control. FINDINGS: Head: Evaluation of the posterior fossa is limited due to significantartifact. There is no acute intracranial hemorrhage. There is no hydrocephalus, midline shift or extra-axial fluid collection. The brain parenchyma is normal in appearance. Craniofacial bones/Soft tissues: The craniofacial bones are intact. There is a moderate to large volume scalp hematoma hematoma along the frontal/supraorbital scalp extending along the extending superiorly up to the vertex measuring about 1.4 to1.9 cm in thickness.. There is a laceration with subcutaneous emphysemaalong the left lateral frontal scalp (image [address] of the head).There is no adjacent calvarial or facial bone fractures noted The orbital contents are within normal limits. There is no intraorbital hematoma. The paranasal sinuses are clear. The mastoid cavities areunderpneumatized. Apical lucency along the left lateral incisor incisor. Cervical spine: There is no fracture or traumatic subluxation. The prevertebral soft tissues are within normal limits. There is is multilevel mild degenerative disc disease with disc space narrowing and osteophytic endplate disease most significant at C5-C6 and C6-C7. Endplate irregularity at the level of C7 vertebral body mostlikely secondary to degenerative changes.There are no aggressive appearinglytic or sclerotic bone lesions. No significant central canal stenosis. Severe facet arthropathy at the level of right C3-C4 and left C4-C5, mild facet arthropathy at other levels.. Severe neural foramina stenosis on the left-sided the level of C4-C5 and right-sided at the level of C3-C4 moderate right-sided neural foraminal stenosis at the level of C5-C6,and no significant neural foraminal stenosis at other levels. Thoracic spine: There is no fracture or traumatic subluxation. Levocurvature of the thoracic spine. There is multilevel mild degenerative changes throughout the thoracic spine. There is no severe central canal stenosis. Multilevel mild to moderate neural foraminal stenosis most prominent at the level [id number] bilaterally..There are no aggressive appearing lytic or sclerotic bone lesions. Lumbar spine: There is no fracture or traumatic subluxation of the lumbar spine. The included sacrum is intact. Multilevel mild mild degenerative changes throughout the lumbar spine,most prominent at the level of L5-S1 with severe disc space narrowing andvacuum degeneration. No significant central canal stenosis, moderate to severe neural foramina stenosis at the level of L5-S1 bilaterally.There are no aggressive appearing lytic or sclerotic bone lesions. The paraspinalsoft tissues are unremarkable. IMPRESSION: Head/Facial bones: 1.No acute intracranial abnormality. 2. Moderate to large volume frontal scalp. No edema extending up to the vertex superiorly and the supraorbital region inferiorly, measuring approximately 1.9 cm in thickness. There is a laceration withsubcutaneous emphysema along the left frontal scalp. No facial or calvarial bone fractures noted Cervical, thoracic and lumbar spine: No fracture of the cervical, thoracic and lumbar spine. Please refer to the separately dictated report of CT scan of the chest, abdomen and pelvis for intrathoracic and intra-abdominal findings. Report dictated by Meng Moon MD (vice president talent management). La Reddy MD have personally reviewed and interpreted this examination/study. > Interpreting Provider: La Morris MD on 01/05/2023 10:50 AM Familia Rausch MD CT ORDERABLES * CT FACIAL BONES WO CONTRAST - Facial trauma, fx suspected, blunt (01/05/2023 12:51 AM CDT) Anatomical Region Laterality Modality Head Computed Tomogra phy 01/05/2023 12:4 2 AM CDT Impressions 01/05/2023 10:50 AM CDT IMPRESSION: Head/Facial bones: 1.No acute intracranial abnormality. 2. Moderate to large volume frontal scalp. No edema extending up to the vertex superiorly and the supraorbital region inferiorly, measuring approximately 1.9 cm in thickness. There is a laceration with subcutaneous emphysema along the left frontal scalp. No facial or calvarial bone fractures noted Cervical, thoracic and lumbar spine: No fracture of the cervical, thoracic and lumbar spine. Please refer to the separately dictated report of CT scan of the chest, abdomen and pelvis for intrathoracic and intra-abdominal findings. Report dictated by Meng Moon MD (vice president talent management). La Reddy MD have personally reviewed and interpreted this examination/study. > Interpreting Provider: La Morris MD on 01/05/2023 10:50 AM Narrative 01/05/2023 10:50 AM CDT PROCEDURE: CT HEAD WO CONTRAST, CT LUMBAR SPINE WO CONTRAST, CT THORACIC SPINE WO CONTRAST, CT CERVICAL SPINE WO CONTRAST, CT FACIAL BONES WO CONTRAST, DATE/TIME OF EXAM: 01/05/2023 12:52 AM, LOCATION [facility] INDICATION: Trauma ADDITIONAL CLINICAL INFORMATION: COMPARISON: None. TECHNIQUE: CT of the head, facial bones and cervical spine was performed without intravenous contrast according to standard protocol. CT images of the thoracic spine and lumbar spine were reformatted from the concurrently obtained CT scan of the chest, abdomen and pelvis with intravenous contrast. CT dose reduction technique was used, including Automated Exposure Control. FINDINGS: Head: Evaluation of the posterior fossa is limited due to significant artifact. There is no acute intracranial hemorrhage. There is no hydrocephalus, midline shift or extra-axial fluid collection. The brain parenchyma is normal in appearance. Craniofacial bones/Soft tissues: The craniofacial bones are intact. There is a moderate to large volume scalp hematoma hematoma along the frontal/supraorbital scalp extending along the extending superiorly up to the vertex measuring about 1.4 to 1.9 cm in thickness.. There is a laceration with subcutaneous emphysema along the left lateral frontal scalp (image [address] of the head). There is no adjacent calvarial or facial bone fractures noted The orbital contents are within normal limits. There is no intraorbital hematoma. The paranasal sinuses are clear. The mastoid cavities are underpneumatized. Apical lucency along the left lateral incisor incisor. Cervical spine: There is no fracture or traumatic subluxation. The prevertebral soft tissues are within normal limits. There is is multilevel mild degenerative disc disease with disc space narrowing and osteophytic endplate disease most significant at C5-C6 and C6-C7. Endplate irregularity at the level of C7 vertebral body most likely secondary to degenerative changes.There are no aggressive appearing lytic or sclerotic bone lesions. No significant central canal stenosis. Severe facet arthropathy at the level of right C3-C4 and left C4-C5, mild facet arthropathy at other levels.. Severe neural foramina stenosis on the left-sided the level of C4-C5 and right-sided at the level of C3-C4 moderate right-sided neural foraminal stenosis at the level of C5-C6, and no significant neural foraminal stenosis at other levels. Thoracic spine: There is no fracture or traumatic subluxation. Levocurvature of the thoracic spine. There is multilevel mild degenerative changes throughout the thoracic spine. There is no severe central canal stenosis. Multilevel mild to moderate neural foraminal stenosis most prominent at the level of T10-T11 bilaterally..There are no aggressive appearing lytic or sclerotic bone lesions. Lumbar spine: There is no fracture or traumatic subluxation of the lumbar spine. The included sacrum is intact. Multilevel mild mild degenerative changes throughout the lumbar spine, most prominent at the level of L5-S1 with severe disc space narrowing and vacuum degeneration. No significant central canal stenosis, moderate to severe neural foramina stenosis at the level of L5-S1 bilaterally.There are no aggressive appearing lytic or sclerotic bone lesions. The paraspinal soft tissues are unremarkable. Procedure Note La Morris MD - 01/07/2023 PROCEDURE: CT HEAD WO CONTRAST, CT LUMBAR SPINE WO CONTRAST, CTTHORACIC SPINE WO CONTRAST, CT CERVICAL SPINE WO CONTRAST, CT FACIAL BONES WO CONTRAST, DATE/TIME OF EXAM: 01/05/2023 12:52 AM, LOCATION [facility] INDICATION: Trauma ADDITIONAL CLINICAL INFORMATION: COMPARISON: None. TECHNIQUE: CT of the head, facial bones and cervical spine was performed without intravenous contrast according to standard protocol. CT imagesof the thoracic spine and lumbar spine were reformatted from theconcurrently obtained CT scan of the chest, abdomen and pelvis with intravenous contrast. CT dose reduction technique was used, including Automated Exposure Control. FINDINGS: Head: Evaluation of the posterior fossa is limited due to significantartifact. There is no acute intracranial hemorrhage. There is no hydrocephalus, midline shift or extra-axial fluid collection. The brain parenchyma is normal in appearance. Craniofacial bones/Soft tissues: The craniofacial bones are intact. There is a moderate to large volume scalp hematoma hematoma along the frontal/supraorbital scalp extending along the extending superiorly up to the vertex measuring about 1.4 to1.9 cm in thickness.. There is a laceration with subcutaneous emphysemaalong the left lateral frontal scalp (image [address] of the head).There is no adjacent calvarial or facial bone fractures noted The orbital contents are within normal limits. There is no intraorbital hematoma. The paranasal sinuses are clear. The mastoid cavities areunderpneumatized. Apical lucency along the left lateral incisor incisor. Cervical spine: There is no fracture or traumatic subluxation. The prevertebral soft tissues are within normal limits. There is is multilevel mild degenerative disc disease with disc space narrowing and osteophytic endplate disease most significant at C5-C6 and C6-C7. Endplate irregularity at the level of C7 vertebral body mostlikely secondary to degenerative changes.There are no aggressive appearinglytic or sclerotic bone lesions. No significant central canal stenosis. Severe facet arthropathy at the level of right C3-C4 and left C4-C5, mild facet arthropathy at other levels.. Severe neural foramina stenosis on the left-sided the level of C4-C5 and right-sided at the level of C3-C4 moderate right-sided neural foraminal stenosis at the level of C5-C6,and no significant neural foraminal stenosis at other levels. Thoracic spine: There is no fracture or traumatic subluxation. Levocurvature of the thoracic spine. There is multilevel mild degenerative changes throughout the thoracic spine. There is no severe central canal stenosis. Multilevel mild to moderate neural foraminal stenosis most prominent at the level [id number] bilaterally..There are no aggressive appearing lytic or sclerotic bone lesions. Lumbar spine: There is no fracture or traumatic subluxation of the lumbar spine. The included sacrum is intact. Multilevel mild mild degenerative changes throughout the lumbar spine,most prominent at the level of L5-S1 with severe disc space narrowing andvacuum degeneration. No significant central canal stenosis, moderate to severe neural foramina stenosis at the level of L5-S1 bilaterally.There are no aggressive appearing lytic or sclerotic bone lesions. The paraspinalsoft tissues are unremarkable. IMPRESSION: Head/Facial bones: 1.No acute intracranial abnormality. 2. Moderate to large volume frontal scalp. No edema extending up to the vertex superiorly and the supraorbital region inferiorly, measuring approximately 1.9 cm in thickness. There is a laceration withsubcutaneous emphysema along the left frontal scalp. No facial or calvarial bone fractures noted Cervical, thoracic and lumbar spine: No fracture of the cervical, thoracic and lumbar spine. Please refer to the separately dictated report of CT scan of the chest, abdomen and pelvis for intrathoracic and intra-abdominal findings. Report dictated by Meng Moon MD (vice president talent management). La Reddy MD have personally reviewed and interpreted this examination/study. > Interpreting Provider: La Morris MD on 01/05/2023 10:50 AM Familia Rausch MD CT ORDERABLES * CT HEAD WO CONTRAST - Head Trauma, CSF leak, mental status changes (01/05/2023 12:51 AM CDT) Anatomical Region Laterality Modality Head Computed Tomogra phy 01/05/2023 12:4 2 AM CDT Impressions 01/05/2023 10:50 AM CDT IMPRESSION: Head/Facial bones: 1.No acute intracranial abnormality. 2. Moderate to large volume frontal scalp. No edema extending up to the vertex superiorly and the supraorbital region inferiorly, measuring approximately 1.9 cm in thickness. There is a laceration with subcutaneous emphysema along the left frontal scalp. No facial or calvarial bone fractures noted Cervical, thoracic and lumbar spine: No fracture of the cervical, thoracic and lumbar spine. Please refer to the separately dictated report of CT scan of the chest, abdomen and pelvis for intrathoracic and intra-abdominal findings. Report dictated by Meng Moon MD (vice president talent management). La Reddy MD have personally reviewed and interpreted this examination/study. > Interpreting Provider: La Morris MD on 01/05/2023 10:50 AM Narrative 01/05/2023 10:50 AM CDT PROCEDURE: CT HEAD WO CONTRAST, CT LUMBAR SPINE WO CONTRAST, CT THORACIC SPINE WO CONTRAST, CT CERVICAL SPINE WO CONTRAST, CT FACIAL BONES WO CONTRAST, DATE/TIME OF EXAM: 01/05/2023 12:52 AM, LOCATION [facility] INDICATION: Trauma ADDITIONAL CLINICAL INFORMATION: COMPARISON: None. TECHNIQUE: CT of the head, facial bones and cervical spine was performed without intravenous contrast according to standard protocol. CT images of the thoracic spine and lumbar spine were reformatted from the concurrently obtained CT scan of the chest, abdomen and pelvis with intravenous contrast. CT dose reduction technique was used, including Automated Exposure Control. FINDINGS: Head: Evaluation of the posterior fossa is limited due to significant artifact. There is no acute intracranial hemorrhage. There is no hydrocephalus, midline shift or extra-axial fluid collection. The brain parenchyma is normal in appearance. Craniofacial bones/Soft tissues: The craniofacial bones are intact. There is a moderate to large volume scalp hematoma hematoma along the frontal/supraorbital scalp extending along the extending superiorly up to the vertex measuring about 1.4 to 1.9 cm in thickness.. There is a laceration with subcutaneous emphysema along the left lateral frontal scalp (image [address] of the head). There is no adjacent calvarial or facial bone fractures noted The orbital contents are within normal limits. There is no intraorbital hematoma. The paranasal sinuses are clear. The mastoid cavities are underpneumatized. Apical lucency along the left lateral incisor incisor. Cervical spine: There is no fracture or traumatic subluxation. The prevertebral soft tissues are within normal limits. There is is multilevel mild degenerative disc disease with disc space narrowing and osteophytic endplate disease most significant at C5-C6 and C6-C7. Endplate irregularity at the level of C7 vertebral body most likely secondary to degenerative changes.There are no aggressive appearing lytic or sclerotic bone lesions. No significant central canal stenosis. Severe facet arthropathy at the level of right C3-C4 and left C4-C5, mild facet arthropathy at other levels.. Severe neural foramina stenosis on the left-sided the level of C4-C5 and right-sided at the level of C3-C4 moderate right-sided neural foraminal stenosis at the level of C5-C6, and no significant neural foraminal stenosis at other levels. Thoracic spine: There is no fracture or traumatic subluxation. Levocurvature of the thoracic spine. There is multilevel mild degenerative changes throughout the thoracic spine. There is no severe central canal stenosis. Multilevel mild to moderate neural foraminal stenosis most prominent at the level of T10-T11 bilaterally..There are no aggressive appearing lytic or sclerotic bone lesions. Lumbar spine: There is no fracture or traumatic subluxation of the lumbar spine. The included sacrum is intact. Multilevel mild mild degenerative changes throughout the lumbar spine, most prominent at the level of L5-S1 with severe disc space narrowing and vacuum degeneration. No significant central canal stenosis, moderate to severe neural foramina stenosis at the level of L5-S1 bilaterally.There are no aggressive appearing lytic or sclerotic bone lesions. The paraspinal soft tissues are unremarkable. Procedure Note La Morris MD - 01/07/2023 PROCEDURE: CT HEAD WO CONTRAST, CT LUMBAR SPINE WO CONTRAST, CTTHORACIC SPINE WO CONTRAST, CT CERVICAL SPINE WO CONTRAST, CT FACIAL BONES WO CONTRAST, DATE/TIME OF EXAM: 01/05/2023 12:52 AM, LOCATION [facility] INDICATION: Trauma ADDITIONAL CLINICAL INFORMATION: COMPARISON: None. TECHNIQUE: CT of the head, facial bones and cervical spine was performed without intravenous contrast according to standard protocol. CT imagesof the thoracic spine and lumbar spine were reformatted from theconcurrently obtained CT scan of the chest, abdomen and pelvis with intravenous contrast. CT dose reduction technique was used, including Automated Exposure Control. FINDINGS: Head: Evaluation of the posterior fossa is limited due to significantartifact. There is no acute intracranial hemorrhage. There is no hydrocephalus, midline shift or extra-axial fluid collection. The brain parenchyma is normal in appearance. Craniofacial bones/Soft tissues: The craniofacial bones are intact. There is a moderate to large volume scalp hematoma hematoma along the frontal/supraorbital scalp extending along the extending superiorly up to the vertex measuring about 1.4 to1.9 cm in thickness.. There is a laceration with subcutaneous emphysemaalong the left lateral frontal scalp (image [address] of the head).There is no adjacent calvarial or facial bone fractures noted The orbital contents are within normal limits. There is no intraorbital hematoma. The paranasal sinuses are clear. The mastoid cavities areunderpneumatized. Apical lucency along the left lateral incisor incisor. Cervical spine: There is no fracture or traumatic subluxation. The prevertebral soft tissues are within normal limits. There is is multilevel mild degenerative disc disease with disc space narrowing and osteophytic endplate disease most significant at C5-C6 and C6-C7. Endplate irregularity at the level of C7 vertebral body mostlikely secondary to degenerative changes.There are no aggressive appearinglytic or sclerotic bone lesions. No significant central canal stenosis. Severe facet arthropathy at the level of right C3-C4 and left C4-C5, mild facet arthropathy at other levels.. Severe neural foramina stenosis on the left-sided the level of C4-C5 and right-sided at the level of C3-C4 moderate right-sided neural foraminal stenosis at the level of C5-C6,and no significant neural foraminal stenosis at other levels. Thoracic spine: There is no fracture or traumatic subluxation. Levocurvature of the thoracic spine. There is multilevel mild degenerative changes throughout the thoracic spine. There is no severe central canal stenosis. Multilevel mild to moderate neural foraminal stenosis most prominent at the level [id number] bilaterally..There are no aggressive appearing lytic or sclerotic bone lesions. Lumbar spine: There is no fracture or traumatic subluxation of the lumbar spine. The included sacrum is intact. Multilevel mild mild degenerative changes throughout the lumbar spine,most prominent at the level of L5-S1 with severe disc space narrowing andvacuum degeneration. No significant central canal stenosis, moderate to severe neural foramina stenosis at the level of L5-S1 bilaterally.There are no aggressive appearing lytic or sclerotic bone lesions. The paraspinalsoft tissues are unremarkable. IMPRESSION: Head/Facial bones: 1.No acute intracranial abnormality. 2. Moderate to large volume frontal scalp. No edema extending up to the vertex superiorly and the supraorbital region inferiorly, measuring approximately 1.9 cm in thickness. There is a laceration withsubcutaneous emphysema along the left frontal scalp. No facial or calvarial bone fractures noted Cervical, thoracic and lumbar spine: No fracture of the cervical, thoracic and lumbar spine. Please refer to the separately dictated report of CT scan of the chest, abdomen and pelvis for intrathoracic and intra-abdominal findings. Report dictated by Meng Moon MD (vice president talent management). La Reddy MD have personally reviewed and interpreted this examination/study. > Interpreting Provider: La Morris MD on 01/05/2023 10:50 AM F[address]ilia Rausch MD CT ORDERABLES * XR PELVIS 1 OR 2VW (01/05/2023 12:34 AM CDT) Anatomical Region Laterality Modality Pelvis Radiographic Natali ging 01/05/2023 12:4 4 AM CDT Impressions 01/05/2023 2:26 PM CDT IMPRESSION: No acute fracture identified. Report dictated by Meng Moon MD (professor of radiology). Sadi Reddy MD have personally reviewed and interpreted this examination/study. > Interpreting Provider: Sadi Robertson MD on 01/05/2023 2:26 PM Narrative 01/05/2023 2:26 PM CDT PROCEDURE: XR PELVIS 1 OR 2VW, DATE/TIME OF EXAM: 01/05/2023 12:34 AM, LOCATION [facility] INDICATION: Trauma Fracture suspected ADDITIONAL CLINICAL INFORMATION: COMPARISON: Same-day CT chest abdomen pelvis 01/05/2023 FINDINGS: Surgical clips overlie the left sacroiliac joint. Partial visualization of surgical hardware adjacent to the right side of the lumbar spine. No acute fracture is identified. The femoral heads appear well-seated within their respective acetabula. The pubic symphysis is intact. Bone density and texture are normal. The sacroiliac joints are normal. Procedure Note Sadi Robertson MD - 01/07/2023 PROCEDURE: XR PELVIS 1 OR 2VW, DATE/TIME OF EXAM: 01/05/2023 12:34 AM, LOCATION [facility] INDICATION: Trauma Fracture suspected ADDITIONAL CLINICAL INFORMATION: COMPARISON: Same-day CT chest abdomen pelvis 01/05/2023 FINDINGS: Surgical clips overlie the left sacroiliac joint. Partial visualizationof surgical hardware adjacent to the right side of the lumbar spine. No acute fracture is identified. The femoral heads appear well-seated within their respective acetabula. The pubic symphysis is intact. Bone density and texture are normal. The sacroiliac joints are normal. IMPRESSION: No acute fracture identified. Report dictated by Meng Moon MD (professor of radiology). Sadi Reddy MD have personally reviewed and interpreted this examination/study. > Interpreting Provider: Sadi Robertson MD on 01/05/2023 2:26 PM Familia Rausch MD DIAGNOSTIC IMAGING O RDERABLES * XR CHEST 1VW PORTABLE (01/05/2023 12:34 AM CDT) Anatomical Region Laterality Modality Chest Radiographic Natali ging 01/05/2023 12:4 0 AM CDT Impressions 01/05/2023 2:25 PM CDT IMPRESSION: No acute pulmonary process. Report dictated by Meng Moon MD (professor of radiology). Sadi Reddy MD have personally reviewed and interpreted this examination/study. > Interpreting Provider: Sadi Robertson MD on 01/05/2023 2:25 PM Narrative 01/05/2023 2:25 PM CDT PROCEDURE: XR CHEST 1VW PORTABLE DATE/TIME OF EXAM: 01/05/2023 12:34 AM CLINICAL INFORMATION: None relevant/not provided if blank. Indication: Trauma Additional History: COMPARISON: Same-day CT chest abdomen pelvis FINDINGS: Surgical clips are seen overlying the left and right upper quadrant of the abdomen. There is no focal consolidation, pleural effusion, or pneumothorax. The cardiomediastinal silhouette is normal for portable technique. The visible bony thorax is intact. Procedure Note Sadi Robertson MD - 01/07/2023 PROCEDURE: XR CHEST 1VW PORTABLE DATE/TIME OF EXAM: 01/05/2023 12:34 AM CLINICAL INFORMATION: None relevant/not provided if blank. Indication: Trauma Additional History: COMPARISON: Same-day CT chest abdomen pelvis FINDINGS: Surgical clips are seen overlying the left and right upper quadrant ofthe abdomen. There is no focal consolidation, pleural effusion, or pneumothorax. The cardiomediastinal silhouette is normal for portable technique. Thevisible bony thorax is intact. IMPRESSION: No acute pulmonary process. Report dictated by Meng Moon MD (professor of radiology). I, Sadi Robertson MD have personally reviewed and interpreted this examination/study. > Interpreting Provider: Sadi Robertson MD on 01/05/2023 2:25 PM Familia Rausch MD DIAGNOSTIC IMAGING O RDERABLES * TEG 6 GLOBAL HEMOSTASIS W/ LYSIS (01/05/2023 12:20 AM CDT) Citrated Kaolin R (Reaction Time) 5.5 4.6 - 9.1 min 01/05/2023 1:30 AM CDT [facility] Citrated Kaolin LY30 (Lysis) 0.3 0.0 - 2.6 % 01/05/2023 1:30 AM CDT [facility] Citrated Functional Fibrinogen MA (Max Amplitude) 19.9 15.0 - 32.0 mm 01/05/2023 1:30 [facility] Citrated RapidTEG MA (Max Amplitude) 65.5 52.0 - 70.0 mm 01/05/2023 1:30 AM [facility] Blood BLOOD SPECIMEN / Unknown Venipuncture / Unknown 01/05/2023 12:20 AM CDT 01/05/2023 12:24 AM CDT Familia Rausch MD LAB - HEMATOLOGY ORD ERABLES [facility] [address] [place] [address], [facility] [phone] * (ABNORMAL) TEG 6S PLATELET MAPPING (01/05/2023 12:20 AM CDT) TEGPLM (Max Amplitude) Koalin 65.3 53.0 - 68.0 mm 01/05/2023 1:18 AM [facility] TEGPLM (Max Amplitude) ACTF 9.6 2.0 - 19.0 mm 01/05/2023 1:18 AM [facility] TEGPLM (Max Amplitude) ADP 38.6(L) 45.0 - 69.0 mm 01/05/2023 1:18 AM [facility] Comment:ADP MA below normal range. Inhibition present. TEGPLM (Max Amplitude) AA 59.6 51.0 - 71.0 mm 01/05/2023 1:18 AM [facility] TEGPLM %Inhibition ADP 47.9(H) 0.0 - 17.0 % 01/05/2023 1:18 AM [facility] TEGPLM %Inhibition AA 10.2 0.0 - 11.0 % 01/05/2023 1:18 AM [facility] TEGPLM %Aggregation ADP 52.1(L) 83.0 - 100.0 % 01/05/2023 1:18 AM [facility] TEGPLM % Aggregation AA 89.8 89.0 - 100.0 % 01/05/2023 1:18 AM [facility] Blood BLOOD SPECIMEN / Unknown Venipuncture / Unknown 01/05/2023 12:20 AM CDT 01/05/2023 12:24 AM CDT Familia Rausch MD LAB - HEMATOLOGY ORD ERABLES Performing Organization Address [facility] Co de Phone Number [address] [address], [facility] [phone] * PTT [facility] (01/05/2023 12:20 AM CDT) APTT 24.6 23.0 - 38.4 Seconds 01/05/2023 12:46 AM CDT [facility] Comment:Suggested therapeuti c range for full dose I.V. unfractionated heparin therapy for venous thromboembolism is 71 to 109 seconds. Blood BLOOD SPECIMEN / Unknown Venipuncture / Unknown 01/05/2023 12:20 AM CDT 01/05/2023 12:26 AM CDT Familia Rausch MD LAB - COAGULATION OR DERABLES Performing Organization Address [facility] Co de Phone Number [address] [address], [facility] [phone] * PT-INR [facility] (01/05/2023 12:20 AM CDT) PT 12.3 12.1 - 14.8 Seconds 01/05/2023 12:46 AM CDT [facility] LABORATORY HOSPITAL INR 0.9 See Comment 01/05/2023 12:46 AM CDT [facility] LABORATORY [facility] Comment:The suggested therap eutic range for standard coumadin (warfarin) therapy is an INR of 2.0-3.0. For high-risk patients (Mechanical Mitral Valve Prosthesis, etc.), the suggested prophylactic therapeutic range is an INR of 2.5-3.5. Blood BLOOD SPECIMEN / Unknown Venipuncture / Unknown 01/05/2023 12:20 AM CDT 01/05/2023 12:26 AM CDT Familia Rausch MD LAB - COAGULATION OR DERABLES Performing Organization Address [facility] Co de Phone Number [address] [address], [facility] [phone] * TYPE + SCREEN PANEL (01/05/2023 12:20 AM CDT) Pathologist [facility] Antibody Screen NEG 1:05 AM CDT [facility] BLOOD BANK LAB ABO Rh A POS 01/05/2023 1:05 AM CDT [facility] BLOOD BANK LAB Blood Bank BLOOD SPECIMEN / Unknown Venipuncture / Unknown 01/05/2023 12:20 AM CDT 01/05/2023 12:26 AM CDT Familia Rausch MD LAB - BLOOD BANK ORD ERABLES [facility] BLOOD BANK LAB [address] [place] [address], [facility] [phone] * (ABNORMAL) CBC W AUTO DIFFERENTIAL (01/05/2023 12:20 AM CDT) [facility] WBC 6.1 3.5 - 10.5 10 3/uL 01/05/2023 12:32 AM [facility] RBC 4.07 3.80 - 5.20 10 6/uL 01/05/2023 12:32 AM [facility] Hemoglobin 11.8(L) 12.0 - 15.6 g/dL 01/05/2023 12:32 AM [facility] Hematocrit 35.6 35.0 - 45.0 % 01/05/2023 12:32 AM [facility] MCV 87.5 80.7 - 98.3 fL 01/05/2023 12:32 AM [facility] MCH 29.0 26.7 - 34.0 pg 01/05/2023 12:32 AM [facility] MCHC 33.1 30.8 - 35.9 g/dL 01/05/2023 12:32 AM [facility] RDW-SD 40.8 36.0 - 50.0 fL 01/05/2023 12:32 AM [facility] RDW-CV 12.8 11.2 - 14.8 % 01/05/2023 12:32 AM [facility] Platelet Count 276 150 - 400 10 3/uL 01/05/2023 12:32 AM [facility] MPV 8.7(L) 9.4 - 12.9 fL 01/05/2023 12:32 AM [facility] nRBC Absolute 0.00 0 10 3/uL 01/05/2023 12:32 AM [facility] nRBC Auto 0.0 0 /100 WBC 01/05/2023 12:32 AM [facility] Neutrophils % 63.5 35.0 - 70.0 % 01/05/2023 12:32 AM [facility] Lymphocytes % 26.3 20.0 - 43.0 % 01/05/2023 12:32 AM [facility] Monocytes % 7.1 5.0 - 13.0 % 01/05/2023 12:32 AM [facility] Eosinophils % 2.1 0.0 - 6.0 % 01/05/2023 12:32 AM [facility] Basophil % 0.5 0.0 - 2.0 % 01/05/2023 12:32 AM [facility] Neutrophils Absolute 3.84 1.60 - 7.00 10 3/uL 01/05/2023 12:32 AM [facility] Lymphocyte Absolute 1.59 1.10 - 3.90 10 3/uL 01/05/2023 12:32 AM [facility] Monocytes Absolute 0.43 0.26 - 1.07 10 3/uL 01/05/2023 12:32 AM [facility] Eosinophils Absolute 0.13 0.00 - 0.47 10 3/uL 01/05/2023 12:32 AM [facility] Basophils Absolute 0.03 0.00 - 0.08 10 3/uL 01/05/2023 12:32 AM [facility] Immature Granulocytes % 0.5 0.0 - 1.0 % 01/05/2023 12:32 AM [facility] Immature Granulocytes Absolute 0.03 01/05/2023 12:32 AM [facility] Blood BLOOD SPECIMEN / Unknown Venipuncture / Unknown 01/05/2023 12:20 AM CDT 01/05/2023 12:27 AM CDT Familia Rausch MD LAB - HEMATOLOGY ORD JACQUI Performing Organization Address City/[facility]/ZIP Co de Phone Number [facility] [address] [place] [address], [facility] [phone] * (ABNORMAL) BASIC METABOLIC PANEL (CALCIUM TOTAL) (01/05/2023 12:20 AM CDT) BUN 13 7 - 26 mg/dL 01/05/2023 12:57 AM [facility] Creatinine 0.74 0.56 - 0.96 mg/dL 01/05/2023 12:57 AM [facility] Sodium 131(L) 136 - 145 mmol/L 01/05/2023 12:57 AM [facility] Potassium 3.0(L) 3.5 - 4.5 mmol/L 01/05/2023 12:57 AM [facility] Chloride 99 98 - 107 mmol/L 01/05/2023 12:57 AM [facility] CO2 22 22 - 29 mmol/L 01/05/2023 12:57 AM [facility] Glucose 115 70 - 115 mg/dL 01/05/2023 12:57 AM [facility] Calcium 8.9 8.4 - 10.2 mg/dL 01/05/2023 12:57 AM [facility] Anion Gap 13 8 - 18 01/05/2023 12:57 AM [facility] BUN/Creatinine Ratio 18 7 - 23 01/05/2023 12:57 AM [facility] Osmolality Calculated 273 270 - 300 mOsm/kg 01/05/2023 12:57 AM [facility] eGFR by CKD-EPI 63(L) >=90 mL/min/1.7 3 m2 01/05/2023 12:57 AM [facility] Blood BLOOD SPECIMEN / Unknown Venipuncture / Unknown 01/05/2023 12:20 AM CDT 01/05/2023 12:26 AM CDT Familia Rausch MD LAB - CHEMISTRY ORDUnique GUAMAN [address] [address], [facility] [phone] * (ABNORMAL) ALCOHOL ETHYL BLOOD (01/05/2023 12:20 AM CDT) Ethanol (mg/dL) 196(H) <10 mg/dL 12:57 AM CDT [facility] Ethanol Calculated (g/dL) 0.196(H) <=0.010 g/dL 01/05/2023 12:57 AM CDT [facility] Blood BLOOD SPECIMEN / Unknown Venipuncture / Unknown 01/05/2023 12:20 AM CDT 01/05/2023 12:26 AM CDT Narrative [facility] - 01/05/2023 12:57 AM CDT Ethanol Interp <10: None Detected. Depression of VALET PARKING ATTENDANT: >100 mg/dl Potentially Critical: >250 mg/dl Potentially Fatal >400 mg/dl Ethanol in the patient's blood will contribute to the osmolar gap. Ethanol's contribution to the osmolar gap can be estimated by dividing the concentration of ethanol in mg/dL by 4.6. This test is for clinical use only and does not equal a DORA for legal purposes. Familia Rausch MD LAB - CHEMISTRY ORDE DENIZ Performing Organization Address [facility] Co de Phone Number [address] [address], [facility] [phone] * DERMATOPATHOLOGY (01/03/2022 12:00 AM CDT) Case Report Dermatopathology Report Case: [id number] Authorizing Provider: Jasper Contreras MD Collected: 01/03/2022 12:00 AM Ordering Location: [facility] DermPath Lab Received: 01/04/2022 11:37 AM Pathologist: Brett Ga MD Specimen: Skin, right chest 2 3:11 PM CDT DERMATOPATHOLOGY LABORATORY Final Diagnosis Specimen A. SKIN, right chest: EPIDERMOID CYST, SUPERFICIAL PORTIONS ONLY (L72.0) 2 3:11 PM CDT DERMATOPATHOLOGY LABORATORY Clinical History Cyst vs BCC vs other 2 3:11 PM CDT DERMATOPATHOLOGY LABORATORY Gross Description Specimen A: Received is one formalin filled container labeled with the patient's name and designated right chest. The specimen consists of a shave biopsy measuring 7x4x1 mm. Jar 0. 2 3:11 PM CDT DERMATOPATHOLOGY LABORATORY Microscopic Description Specimen A. SKIN, right chest: Within the dermis, there is a space lined by epithelium that resembles normal epidermis and the infundibular portion of the hair follicle. 2 3:11 PM CDT DERMATOPATHOLOGY LABORATORY Disclaimer An external and internal positive and negative controls are appropriate for the histochemical, immunohistochemical and immunofluorescence stain(s) in this case (if any), except where stated explicitly. The performance characteristics of the stain(s) cited in this report were developed and its performance characteristic determined by the Dermatopathology Laboratory at [facility], directed by Dr. Socrates Ga. These tests need not be, and therefore are not, approved by the [place] Food and Drug Administration. The tests are used for clinical purposes. Billing Codes Specimen Charges Stain Charges 95446 1 2 3:11 PM CDT DERMATOPATHOLOGY LABORATORY Embedded Images 2 3:11 PM CDT DERMATOPATHOLOGY LABORATORY Pathology/Cytolog y TISSUE SPECIMEN FROM SKIN / Unknown 01/03/2022 01/04/2022 11:37 AM CDT Jasper Contreras MD LAB - PATHOLOGY/CYTO LOGY ORDERABLES DERMATOPATHOLOGY LABORATORY [facility] - Department of Dermatology [address], [address] [phone] Care Teams Rn Procedure Relationship Specialty Start Date End Date Unknown, Provider PCP - General 01/05/23
--- OUTSIDE RECORDS SUMMARY | 2024-08-30 05:22 | XMS_ITS ---
Author Organization [facility] Address [facility] [address] [address] Care Team Providers Care Candlemaking Laborer Name Role Phone Susan Gutierrezey Unavailable [phone] REASON FOR VISIT MCI/SLUMS test follow up: TRUE NO SHOW, NO MESSAGES OR CALLS [place] Social History Sex Assigned At : Social History Observation Description Sex Assigned At Female Encounters Encounter Location Date Provider Diagnosis [facility], [facility] [address] [address] 08/28/2024 Nicanor Gutierrez Plan Of Treatment No Information Progress Notes * Elizabeth WALTERSDOB:1960 ([age] yo F)Acc No.[id number]:08/28/2024 Patient: Elizabeth GAMBOA Provider: CHARO Ocasio :1960 A ge:64 Y S ex:Female Date:08/28/2024 Phone: Address:[address] [place], [place] [phone] Subjective: * Chief Complaints: * 1 . MCI/SLUMS test follow up: TRUE NO SHOW, NO MESSAGES OR CALLS [place]. * Medical History: Objective: * Vitals: Assessment: Plan: * Treatment: * Billing Information: * Visit Code: * Procedure Codes: * Electronic signature of CHARO Stahl on 08/30/2024 at 05:22 AM RN TELEPHONIC Sign off status: Pending * Provider: CHARO Ocasio Date: 08/28/2024 Generated for Izabela gonzalez/Milad/eTransmitting on: 08/30/2024 05:22 AM RN TELEPHONIC
--- OUTSIDE RECORDS SUMMARY | 2024-08-30 05:22 | XMS_ITS ---
Author Organization [facility] [employer] [facility] Address [facility] [address] [facility] [address] [place] [address] Care Team Providers Care Rest Room Maid Name Role Phone Nicanor Gutierrez [phone] REASON FOR VISIT [place] Social History Sex Assigned At : Social History Observation Description Sex Assigned At Female Encounters Encounter Location Date Provider Diagnosis [facility] [employer] [place] [address] [facility] [address] [place] [address] 08/26/2024 Nicanor Gutierrez Plan Of Treatment No Information Progress Notes * Elizabeth WALTERSDOB:1960 ([age] yo F)Acc No.[id number]:08/26/2024 Patient: Elizabeth GAMBOA :1960 A ge:64 Y S ex:Female Phone: Address:[address] [place] [phone] * * Date:
--- OUTSIDE RECORDS SUMMARY | 2024-08-30 05:22 | XMS_ITS | Encounter Summary ---
Author Organization [facility] Address [address] [place] [address] [place] [address] Care Team Providers Care Loader Machine Name Role Phone Unknown, Provider Primary Care Provider Unavaila ble Encounter Details Date Type Department Care Team (Late st Contact Info) Description 01/04/2022 Lab Requisition [facility] Care DermPath Lab [address] [facility] [place] [address] Jasper Contreras MD [address] [place] [address] Social History Tobacco Use Types Packs/Day Years Used Date Smoking Tobacco: Never Assessed Sex and Gender Information Value Date Recorded Sex Assigned at Not on file Gender Identity Not on file Sexual Orientation Not on file documented as of this encounter Plan of Treatment Not on file documented as of this encounter Procedures Procedure Name Priority Date/Time Associated Diagnosis Comments DERMATOPATHOLOGY Routine 01/03/2022 12:0 0 AM CDT documented in this encounter Results * DERMATOPATHOLOGY (01/03/2022 12:00 AM CDT) Case Report Dermatopathology Report Case: [id number] Authorizing Provider: Jasper Contreras MD Collected: 01/03/2022 12:00 AM Ordering Location: [facility] Care DermPath Lab Received: 01/04/2022 11:37 AM Pathologist: [...] characteristic determined by the Dermatopathology Laboratory at [facility], directed by Dr. Socrates Ga. These tests need not be, and therefore are not, approved by the [place] Food and Drug Administration. The tests are used for clinical purposes. Billing Codes Specimen Charges Stain Charges 18807 1 2 3:11 PM CDT DERMATOPATHOLOGY LABORATORY Embedded Images 2 3:11 PM CDT DERMATOPATHOLOGY LABORATORY Pathology/Cytolog y TISSUE SPECIMEN FROM SKIN / Unknown 01/03/2022 01/04/2022 11:37 AM CDT Jasper Contreras MD LAB - PATHOLOGY/CYTO LOGY ORDERABLES DERMATOPATHOLOGY LABORATORY [facility] - Department of Dermatology [address], [address] [phone] documented in this encounter Visit Diagnoses Not on filedocumented in this encounter Care Teams Loader Machine Relationship Specialty Start Date End Date Unknown, Provider PCP - General 01/05/23 documented as of this encounter
--- OUTSIDE RECORDS SUMMARY | 2024-08-30 05:22 | XMS_ITS | Continuity of Care Document ---
Author Organization [facility] Address [address] [place] [address] [address] [place] [address] Phone Care Team Providers Care Filler Blender Name Role Phone Suri Yeung Unavailable Unavailable Advance Directives Directive Yes / No Effective Date File Name No Information Encounters Encounter Description Practice Location Reason(s) For Visit Diagnoses Date Provider Providers Copied on Encounter [facility], [address], [place], [place], [id number], [place] tel:[phone] [facility] No Information Mar-0 5-200 1 Anjana Mccord. [address] , [address], [place], [address], [place]. tel:[phone] Family History Family Member Type Diagnosis Age At Onset No Information Payers Payer name Insurance type Covered alliance party ID Authoriza tion(s) No Information Social History Type Description Quantity Date Captured Comments Sex Female Smoking Status No Information Chief Complaint And Reason For Visit No Information Reason For Referral Reason For Referral No Information History Of Present Illness Encounter Date Complaint History Of Prese nt Illness No Information Functional Status Date Functional Assessmen t No Information Instructions Date Instruction Additional Infor mation No Information Assessments Type Assessment Date No Information Patient Care Teams Name Effective Dates (start - stop) Status Members No Information
--- OUTSIDE RECORDS SUMMARY | 2024-08-30 05:23 | XMS_ITS | Continuity of Care Document ---
Author Name [facility] Address [address] [place] [address] Organization [facility] Care Team Providers Care Homicide Squad Captain Name Role Phone [facility] Unavailable Unavailable Procedures Procedure Code Date Perfomer Comments Source Eli-en-y gastric bypass<sup>1</sup> [id number] 2006 [facility]
--- OUTSIDE RECORDS SUMMARY | 2024-08-30 05:23 | XMS_ITS | Clinical Summary ---
Author Organization [facility] Address [address] [address] [place] [address] Phone Care Team Providers Care Branch Service Specialist Name Role Phone Sally Senior MD Primary Care Provider [phone] Allergies Active Allergy Reactions Criticality Noted Date Comments Cephalexin Unknown 11/20/2019 Ciprofloxacin Unknown 10/08/2017 Hydrocodone Itching Low 11/20/2019 Naproxen Sodium Rash,Itching Low 11/20/2019 Ondansetron Hcl (Pf) Rash Low 12/01/2020 Sulfa (Sulfonamide Antibiotics) Unknown 12/23/2015 Topiramate Other (See Comments) 11/20/2019 STATES WAS STROKE LIKE SYMPTOMS AND WAS HOSPITALIZED Medications thyroid, pork, ([place] Thyroid) 60 mg tablet Take 60 mg by mouth daily. Active ascorbic acid, vitamin C, (VITAMIN C) 1,000 mg Tablet Take 1,000 mg by mouth 2 times daily. Active ergocalciferol (VITAMIN D2) 50,000 unit capsule Take 50,000 Units by mouth twice weekly. Take on Saturday and Wednesdays. Active albuterol HFA 90 mcg inhaler Take 2 Puffs by inhalation every 6 hours as needed for Shortness of Breath. Active budesonide-for moteroL (SYMBICORT) 160-4.5 mcg/actuation HFA Aerosol Inhaler Take 2 Puffs by inhalation 1 time daily as needed. Active hydrOXYzine HCL (ATARAX) 25 mg tablet Take 25 mg by mouth 3 times daily as needed for Itching. Active cyanocobalamin (Vitamin B-12) 1,000 mcg/mL Solution Inject 1,000 mcg by intramuscular injection every 30 days. Take on the 1st monthly. Active lidocaine (LIDODERM) 5 % Adhesive Patch, Medicated Apply 1 Patch to affected area 1 time daily as needed for Pain (neck area). Apply as directed. Active sucralfate (CARAFATE) 100 mg/mL suspension Take 1 Gram by mouth 3 times daily. Active hydroCHLOROthi azide (HYDRODIURIL) 12.5 mg tablet Take 12.5 mg by mouth daily. Active lisinopriL (PRINIVIL) 2.5 mg tablet Take 2.5 mg by mouth daily at bedtime. Active Active Problems Problem Noted Date Diagnosed Date Choledocholithiasis 06/10/2020 S/P cholecystectomy 06/10/2020 Intussusception 06/08/2020 Transaminitis 06/08/2020 Gastroesophageal reflux disease without esophagi tis 06/08/2020 Hyperlipidemia 06/08/2020 KATHY (obstructive sleep apnea) 06/08/2020 Obesity (BMI 30.0-34.9) 06/08/2020 Elevated liver enzymes Non-intractable vomiting LUQ abdominal pain S/P gastric bypass HTN (hypertension), benign Immunizations Immunization Administration Dates Next Due INFLUENZA VACCINE QUADRIVALE NT 6 MOS UP PF IM 06/10/2020(Deferred: - Pt will get at her Dr's office.) Influenza Seasonal Unspecifi ed Formulation IM 04/21/2019 Family History Medical History Relation Name Comments Hypertension Father Diabetes Mother Hypertension Mother Colon Cancer Neg Hx Relation Name Status Comments Father Alive Mother Social History Tobacco Use Types Packs/Day Years Used Date Smoking Tobacco: Former Cigarettes Smokeless Tobacco: Former Alcohol Use Standard Drinks/Week Comments Not Currently 0 (1 standard drink = 0.6 oz pur e alcohol) Feeling Safe Answer Date Recorded Within the last year, have y ou been afraid of your partner or ex-partner? No 06/08/2020 Within the last year, have y ou been humiliated or emotionally abused in other ways by your partner or ex-partner? No Within the last year, have y ou been kicked, hit, slapped, or otherwise physically hurt by your partner or ex-partner? No 06/08/2020 Within the last year, have y ou been raped or forced to have any kind of sexual activity by your partner or ex-partner? No 06/08/2020 Social Connections Answer Date Recorded In a typical week, how many times do you talk on the phone with family, friends, or neighbors? Patient declined 06/08/2020 How often do you get togethe r with friends or relatives? Patient declined 06/08/2020 How often do you attend nondenominational or nondenominational serv ices? Patient declined 06/08/2020 Do you belong to any clubs o r organizations such as nondenominational groups, unions, fraternal or athletic groups, or school groups? Patient declined 06/08/2020 How often do you attend meet ings of the clubs or organizations you belong to? Patient declined 06/08/2020 Are you , , di vorced, , never , or living with a partner? Patient declined 06/08/2020 Financial Resource Strain Answer Date R ecorded How hard is it for you to pa y for the very basics like food, housing, medical care, and heating? Not hard at all 06/08/2020 Food Insecurity Answer Date Recorded Within the past 12 months, y ou worried that your food would run out before you got the money to buy more. Never true 06/08/20 20 Within the past 12 months, t he food you bought just didn't last and you didn't have money to get more. Never true 06/08/2020 Transportation Needs Answer Date Record ed In the past 12 months, has l ack of transportation kept you from medical appointments or from getting medications? No 05/16 In the past 12 months, has l ack of transportation kept you from meetings, work, or from getting things needed for daily living? No 06/08/2020 Comments No Sex and Gender Information Value Date Recorded Sex Assigned at Not on file Legal Sex Female 2:28 PM CDT Gender Identity Not on file Sexual Orientation Not on file Last Filed Vital Signs Vital Sign Reading Time Taken Comments Blood Pressure 132/82 12/03/2020 5:35 AM CDT Pulse 67 12/03/2020 5:35 AM CDT Temperature 36.7 C (98 F) 12/03/2020 5:35 AM CDT Respiratory Rate 18 12/03/2020 5:35 AM CDT Oxygen Saturation 98% 12/03/2020 5:35 AM CDT Inhaled Oxygen Concentration - - Weight 83.5 kg (184 lb) 11/30/2020 12:13 PM CDT Height 162.6 cm (5' 4 ) 11/30/2020 12:13 PM CDT Body Mass Index 31.58 11/30/2020 12:13 PM CDT Plan of Treatment Health Maintenance Due Date Last Done Comments CERVICAL CANCER SCREENING 1992 BREAST CANCER SCREENING 2002 COLORECTAL SCREENING 2007 Colorectal Cancer Screening 2007 FIT-DNA Q 3 years 2007 FIT/FOBT Q 1 year 2007 Flex Sig/CT Colonography Q 5 years 2007 ZOSTER VACCINE (1 of 2) 2012 INFLUENZA VACCINE (#1) 2024 9, 05/20/2018, 05/15/2018 COVID-19 Vaccine ( season) 2024, 08/05/2020 DTAP/TDAP/TD VACCINES (2 - T d or Tdap) 05/15/2028 05/15/2018 RSV VACCINE (60+ or ) (1 - 1-dose 75+ series) 2037 Medical Devices Implanted Type Area Dianeticist Device Identifier Shelf Expiration Date Model / Serial / Lot Hemostat Surg Snow 2x4in 2081 - [id number] Implanted:Qt y: 1 on 06/14/2020 by Deven Julio DO at [facility] Hemostatic N/A: Abdomen [employer]- [employer] 01/11/2022 208 / / [id number] Hemostat Surg Snow 2x4in 2081 - [id number] Implanted:Qt y: 1 on 06/14/2020 by Deven Julio DO at [facility] Hemostatic N/A: Abdomen [employer]- [employer] 12/12/20212081 / / [id number] Stent Cautery Axios [id number] - [id number] Implanted:Qt y: 1 on 06/13/2020 by Bryson Junior MD at [facility] Stent N/A: Stomach [employer] [id number] 04/12/2021 [id number] / / [id number] Advance Directives For more information, please contact: [phone] * Full Code (Latest Code Status on File) Date Activated Date Inactivated Comments 11/30/2020 10:02 PM 12/03/2020 3:09 PM * Full Code Date Activated Date Inactivated Comments 07/25/2020 9:58 AM 07/25/2020 2:21 PM * Full Code Date Activated Date Inactivated Comments 06/13/2020 7:31 PM 06/17/2020 3:31 PM * Full Code Date Activated Date Inactivated Comments 06/10/2020 9:15 PM 06/13/2020 7:31 PM * Full Code Date Activated Date Inactivated Comments 06/08/2020 3:26 AM 06/10/2020 8:40 PM Care Teams Branch Service Specialist Relationship Specialty Start Date End Date Sally Senior MD PCP - General Internal Medicine 11/20/19
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
--- OUTSIDE RECORDS SUMMARY | 2024-08-30 05:23 | XMS_ITS | Encounter Summary ---
Author Organization [facility] Address [address] [place] [address] Care Team Providers Care Smoke Room Operator Name Role Phone Filomena Cotter COATING INSPECTOR Primary Care Provider [phone] Vangie Lopez COATING INSPECTOR Unavailable [phone] Encounter Details Date Type Department Care Team (Late st Contact Info) Description 08/29/2024 Patient Self-Triage [facility]/ [facility] [place] [address] Mychart, Generic Provider [address] [place], [place] [id number] Social History Tobacco Use Types Packs/Day Years Used Date Smoking Tobacco: Former Smokeless Tobacco: Never Comments:Quit Smoked 1 ppd x 30+ years [...] on file Legal Sex Female 8:58 AM SCIENTIFIC INVESTIGATOR Gender Identity Female 10/21/2023 9:49 AM CDT Sexual Orientation Not on file documented as of this encounter Plan of Treatment Not on file documented as of this encounter Visit Diagnoses Not on filedocumented in this encounter Care Teams Smoke Room Operator Relationship Specialty Start Date End Date Filomena Cotter NP PCP - General Family Medicine 09/03/23 Vangie Lopez, COATING INSPECTOR [address] [place] [address] Nurse Practitioner Nurse Practitioner 05/21/24 documented as of this encounter
--- NOTE | 2024-08-30 05:33 | PC.NURSE ---
ERP arrives at bedside, HR is 193. VORB to give 6mg adenosine IVP. 18G IV placed in L AC. VORB to give 1L fluids, NS. 0536 6mg Adenosine given rapid IVP, patient HR 128bpm, ERP at bedside. Repeat EKG performed. Patient VS 120bpm, 100% on RA, 19 RR, and 125/89 bp.
--- NOTE | 2024-08-30 05:34 | ECG_ITS ---
Test Date: 2024-08-30 05:36:05 Measurements Intervals [place] Rate: 203 P: 0 VA: 0 QRS: 37 QRSD: 74 T: 0 QT: 181 QTc: 333 Interpretive Statements SUPRAVENTRICULAR TACHYCARDIA ST-T WAVE ABNORMALITY IN DIFFUSE LEADS- CONSIDER ISCHEMIA OR RATE RELATED BASELINE WANDER- AVF, V4-V6 ABNORMAL ECG No previous ECG available for comparison Electronically Signed On 08-30-2024 08:11:42 INDEPENDENT MARKETING CONSULTANT by Marc Nixon D.O.
[2024-08-30 05:49] LABS: Basophils Percent Auto 0.5 % (0.2-1.2); Eosinophils Absolute Auto 0.2 K/mm3 (0-0.3); Eosinophils Percent Auto 2.5 % (0-4.4); Hematocrit 45.2 % (37.0-47.0); Hemoglobin 14.8 g/dL (12.0-15.0); Immature Granulocyte Absolute 0.02 K/mm3 (0.00-0.031); Immature Granulocyte Percent A 0.3 % (0-0.5); Lymphocytes Percent Auto 18.6 % (18.3-44.2); Mean Corpuscular HGB Conc 32.7 g/dl (32-36); Mean Corpuscular Volume 88.5 fl (80-100); Mean Platelet Volume 9.1 fl (7.4-10.4); Monocytes Absolute Auto 0.5 K/mm3 (0.1-0.6); Monocytes Percent Auto 6.1 % (2.6-8.5); Neutrophils Absolute Auto 5.4 K/mm3 (1.3-6.7); Platelet Count Result 331 k/mm3 (150-375); Red Blood Count 5.11 M/mm3 (4.2-5.4); Red Cell Distribution Width 13.7 % (11.5-14.5); White Blood Count 7.5 K/mm3 (4.5-10.0)
[2024-08-30 05:51] VITALS: O2SAT 100
[2024-08-30] MEDS: ADENOSINE IV SOLN 6 MG/2 ML VIAL 18 MG (05:53)
[2024-08-30] MEDS: SODIUM CHLORIDE 0.9% IV 1,000 ML 999 ML IV CONT (05:55)
[2024-08-30 06:02] LABS: Alanine Aminotransferase 25 U/L (6-35); Albumin Level 4.4 g/dL (3.5-5.1); Alkaline Phosphatase 97 U/L (38-126); Anion Gap 12 mmol/L (4-12); Aspartate Amino Transferase 25 U/L (14-36); Bilirubin,Total 1.1 mg/dL (0.2-1.3); Blood Urea Nitrogen 21 mg/dL (7-17); Calcium 9.9 mg/dL (8.4-10.2); Carbon Dioxide 25 mmol/L (22-30); Chloride 101 mmol/L (98-107); Estimated CRCL calculation 48 ml/min; Estimated Glomerular Filt Rate > 60; Glucose 130 mg/dL (65-110); INR 0.9; Lipase 82 U/L (23-300); Potassium 3.6 mmol/L (3.4-5.0); Prothrombin Time 12.4 Seconds (11.1-14.7); Sodium 138 mmol/L (137-145)
[2024-08-30 06:03] LABS: Partial Thromboplastin Time 26.4 Seconds (22.3-36.8)
[2024-08-30 06:13] LABS: Troponin I < 0.012 ng/mL (0.000-0.034)
--- NOTE | 2024-08-30 06:17 | ED_ITS ---
HPI - General Adult General Chief complaint: Arrhythmia/Palpitations Stated complaint: Palpitations, chest pain Time Seen by Provider: 08/30/24 06:16 History of Present Illness HPI narrative: This is a 64-year-old female presenting ED with chief complaint of palpitations and chest pain. Patient said that the palpitations started this morning. They are associated with left-sided chest discomfort and anxiety. She has had palpitations in the past but they have always resolved on their own. Patient's mother has a history of SVT. patient denies any recent illness, fevers, chills, shortness of breath, abdominal pain, lower extremity edema risk factors for DVT/PE. Related Data Allergies Allergy/AdvReac Type Severity Reaction Status Date / Time Cephalosporins Allergy Intermediate Itching Verified 08/30/24 05:32 hydrocodone Allergy Intermediate Itching Verified 08/30/24 05:32 naproxen Allergy Intermediate Itching Verified 08/30/24 05:32 Exam 2 Narrative: APPEARANCE: Patient appears uncomfortable Head: atraumatic. EYES: EOMI, NOSE: Atraumatic NECK: Trachea midline RESPIRATORY: Tachypneic, clear to auscultation CARDIOVASCULAR: Tachycardic, no peripheral edema ABDOMINAL: Non-distended MUSCULOSKELETAl: No obvious deformities NEURO: Alert. Moving 4/4 extremities SKIN:: Warm, dry. Normal color PSYCHIATRIC: Normal affect Course Vital Signs Vital signs: Vital Signs Temperature 98 F 08/30/24 05:20 Pulse Rate 202 H 08/30/24 05:20 Respiratory Rate 18 08/30/24 05:20 Blood Pressure 89/55 L 08/30/24 05:20 Pulse Oximetry 100 08/30/24 05:20 Oxygen Delivery Room Air 08/30/24 05:20 Temperature 98 F 08/30/24 05:20 Pulse Rate 93 08/30/24 07:15 Respiratory Rate 20 08/30/24 07:15 Blood Pressure 129/78 08/30/24 07:15 Pulse Oximetry 100 08/30/24 07:15 Oxygen Delivery Room Air 08/30/24 05:51 Medical Decision Making [facility] Narrative Medical decision making narrative: -Course: 64-year-old female presenting in SVT. Patient given 6 mg adenosine with conversion to sinus rhythm. Laboratory studies within normal limits. Patient monitor was several hours with no recurrence of her symptoms. She is now resting comfortably in bed. Patient will be discharged follow-up with Cardiology. Given return precautions for palpitations/SVT. -DDX includes but is not limited to: SVT, atrial fibrillation -Co-morbidities complicating care: Hypothyroid Independent EKG interpretation: Rhythm [SVT], Rate [203], [place] -[normal], [place] -NA, QRS [narrow], QTC [normal], T waves -[negative for concerning inversions], ST Segments - [Negative for concerning elevations] Final interpretations: SVT Independent EKG interpretation: Rhythm [sinus], Rate [106], [place] -[normal], [place] -[normal], QRS [narrow], QTC [normal], T waves -[negative for concerning inversions], ST Segments - [Negative for concerning elevations] Final interpretations: sinus tachycardia Vital Signs Vital Signs: Vital Signs Temperature 98 F 08/30/24 05:20 Pulse Rate 202 H 08/30/24 05:20 Respiratory Rate 18 08/30/24 05:20 Blood Pressure 89/55 L 08/30/24 05:20 Pulse Oximetry 100 08/30/24 05:20 Oxygen Delivery Room Air 08/30/24 05:20 Temperature 98 F 08/30/24 05:20 Pulse Rate 93 08/30/24 07:15 Respiratory Rate 20 08/30/24 07:15 Blood Pressure 129/78 08/30/24 07:15 Pulse Oximetry 100 08/30/24 07:15 Oxygen Delivery Room Air 08/30/24 05:51 Lab Data 08/30/24 05:43 08/30/24 05:43 Labs: Lab Results 08/30/24 Range/Units 05:43 WBC 7.5 (4.5-10.0) K/mm3 RBC 5.11 (4.2-5.4) M/mm3 Hgb 14.8 (12.0-15.0) g/dL Hct 45.2 (37.0-47.0) % MCV 88.5 (80-100) fl MCH 29.0 (26-34) pg MCHC 32.7 (32-36) g/dl RDW 13.7 (11.5-14.5) % Plt Count 331 (150-375) k/mm3 MPV 9.1 (7.4-10.4) fl Immature Gran % (Auto) 0.3 (0-0.5) % Neut % (Auto) 72.0 (45.5-73.1) % Lymph % (Auto) 18.6 (18.3-44.2) % [place] % (Auto) 6.1 (2.6-8.5) % Eos % (Auto) 2.5 (0-4.4) % Baso % (Auto) 0.5 (0.2-1.2) % Lymph # (Auto) 1.40 (0.9-3.2) K/mm3 [place] # (Auto) 0.5 (0.1-0.6) K/mm3 Eos # (Auto) 0.2 (0-0.3) K/mm3 Baso # (Auto) 0.0 (0.0-0.1) K/mm3 Abs Immat Gran (auto) 0.02 (0.00-0.031) K/mm3 Absolute Neuts (auto) 5.4 (1.3-6.7) K/mm3 Absolute Nucleated RBC 0.000 (0.0-0.012) K/mm3 Nucleated RBC % 0.0 (0.0-0.2) % PT 12.4 (11.1-14.7) Seconds INR 0.9 APTT 26.4 (22.3-36.8) Seconds Sodium 138 (137-145) mmol/L Potassium 3.6 (3.4-5.0) mmol/L Chloride 101 (98-107) mmol/L Carbon Dioxide 25 (22-30) mmol/L Anion Gap 12 (4-12) mmol/L BUN 21 H (7-17) mg/dL Creatinine 0.92 (0.7-1.0) mg/dL Estim Creat Clear Calc 48 ml/min Estimated GFR > 60 (59 - ) Glucose 130 H (65-110) mg/dL Calcium 9.9 (8.4-10.2) mg/dL Total Bilirubin 1.1 (0.2-1.3) mg/dL AST 25 (14-36) U/L ALT 25 (6-35) U/L Alkaline Phosphatase 97 (38-126) U/L Troponin I < 0.012 (0.000-0.034) ng/mL Total Protein 7.0 (6.3-8.2) g/dL Albumin 4.4 (3.5-5.1) g/dL Lipase 82 (23-300) U/L TSH (Reflex) 2.300 (0.465-4.68) uIU/mL Discharge Plan Discharge Clinical Impression: Palpitations, SVT (supraventricular tachycardia) Patient Disposition: Home, Self-Care Condition: Stable Instructions: Antibiotic Form, Supraventricular Tachycardia (ED) Additional Instructions: You seen emergency department for palpitations. Please follow-up with the complex commercial litigation paralegal listed below for further management. Please avoid stimulants like phentermine as that can worsen your dysrhythmia. If you develop palpitations, chest pain shortness of breath please return to the ED for re-evaluation. You can always attempted vagal maneuvers at home if you develop palpitations. Patient Language: Nigerien Follow-up/Referrals: Gaston White MD [Physician] - 1 Week (SVT) Vahe,FRANCESCO Ramon [Primary Care Provider] -
--- NOTE | 2024-08-30 06:24 | PC.NURSE ---
Patient ambulated to the bathroom and back to her room with a steady unassisted gait. Patient stated she felt better. Patient's HR 92bpm. Call light in reach.
--- OUTSIDE RECORDS SUMMARY | 2024-08-30 06:27 | XMS_ITS ---
Author Organization [facility] [employer] [facility] Address [facility] [facility] [address] [place] [address] Care Team Providers Care Train Attendant Name Role Phone WellingtonSusan harpey Unavailable [phone] Santy Richey Unavailable [phone] Allergies Allergen (clinical drug ingredient) Drug/Non Drug Allergy documented on EMR Reaction Allergy Type Onset Date Status cephalexin Cephalexin Unknown Drug Allergy Activ e REASON FOR VISIT MCI/SLUMS test, Patient is here for Cognitive Testing Medications Medication SIG (Take, Route, Frequency, Duration) Notes Start Date End Date Status Indapamide 1.25 MG Oral for 30 Days Unknown Indapamide 1.25 MG Oral for 30 Days Active Tylenol 325 MG 1 tablet as needed Orally every 6 hrs As needed Active Cyanocobalamin 1000 MCG/ML Injection for 30 Days Active [place] Thyroid 120 MG Oral for 25 Days Active buPROPion HCl 75 MG 1 tablet Orally Twic e a day for 30 days 08/07/2024 Active buPROPion HCl 75 MG 1 tablet Orally Twic e a day 08/07/2024 Active Social History Sex Assigned At : Social History Observation Description Sex Assigned At Female Encounters Encounter Location Date Provider Diagnosis [facility] [employer] [facility] [address] [facility] [address] [place] [address] 08/21/2024 Santy Richey MCI (mild cognitive impairment) G31.84 Assessments Encounter Date Diagnosis (ICD Code) Assessment Notes Treatment Notes Treatment Clinical Notes Section Notes 08/21/2024 MCI (mild cognitive impairment) (ICD-10 - G31.84) For a 64-year-old individual with the following results: SLUMS Score: 29 Within the normal cognitive range (27-30 for individuals with high school education). IQCODE Score: 3.13 Borderline concern for cognitive decline (a score above 3.31 is more indicative of dementia). Cognitive Test Scores: Feature Match: 96 (Very high, suggests strong visual attention and processing speed). Paired Associates: 82 (Above average, good episodic memory). Double Trouble: Invalid (Response inhibition measure could not be assessed). Digit Span: 86 (Strong working memory). Interpretation & Possible Differential Diagnoses: No Clear Signs of Mild Cognitive Impairment (MCI) or Dementia SLUMS is within normal limits Suggests preserved global cognition. IQCODE at 3.13 is slightly elevated but not in the clear dementia range. Possible Executive Function or Processing Anomalies Double Trouble invalid Could indicate difficulty with complex inhibition tasks (frontal lobe dysfunction). If cognitive flexibility or response inhibition is weak, this could suggest early executive dysfunction, common in frontal-subcortica l disorders (e.g., vascular cognitive impairment, early Parkinson's, or mild frontotemporal atrophy). No Major Memory Impairments Paired Associates (82) & Digit Span (86) are strong Suggests good memory retention and working memory, reducing concern for Alzheimer's-type memory decline. Possible Non-Cognitive Factors (Depression, Anxiety, or Sleep Issues) IQCODE slightly elevated may reflect subjective concerns from the individual or an informant. If mood issues or sleep disturbances exist, these could contribute to perceived cognitive inefficiency. Next Steps: Monitor for Changes: If there are subjective concerns, repeat SLUMS in 6-12 months. Assess Executive Function Further: If daily tasks (decision-making, multitasking) feel harder, consider further testing. Screen for Mood & Sleep Disorders: Depression, anxiety, or poor sleep can affect perceived cognition. Medical Workup: If cognitive concerns persist, a neurology consult for vascular health or early executive decline may be useful. Would you like a comparison to prior assessments to track any decline over time? Plan Of Treatment Next Appt Details Follow Up: Follow up with or dering provider on _, Reason: MCI Test result review Procedure Notes * Category Sub-Category Detail Notes Mild Cognitive Impairment (MCI) Testing MCI Resu lts MCI Test Results Progress Notes * Elizabeth WALTERSDOB:1960 ([age] yo F)Acc No.[id number]:08/21/2024 Patient: Elizabeth GAMBOA Provider: Pj RICHEY MD :1960 A ge:64 Y S ex:Female Date:08/21/2024 Phone: Address:[facility], [facility] Subjective: * Chief Complaints: * M CI/SLUMS testPatient is here for Cognitive Testing * HPI: H PI: Patient had MCI testing Patient was identified, and logged into PC Test was admistered in office Staff supervising the test: neymar brandon. * Medical History: * Surgical History: * Hospitalization/Major Diagno stic Procedure: * Medications: T akingbuPROPion HCl 75 MG Tablet 1 tablet Orally Twice a day buPROPion HCl 75 MG Tablet 1 tablet Orally Twice a day Tylenol 325 MG Tablet 1 tablet as needed Orally every 6 hrs As neededArmour Thyroid 120 MG Tablet Oral Cyanocobalamin 1000 MCG/ML Solution Injection Indapamide 1.25 MG Tablet Oral Taking buPROPion HCl 75 MG Tablet 1 tablet Orally Twice a day Taking buPROPion HCl 75 MG Tablet 1 tablet Orally Twice a day Taking Tylenol 325 MG Tablet 1 tablet as needed Orally every 6 hrs As neededTaking [place] Thyroid 120 MG Tablet Oral Taking Cyanocobalamin 1000 MCG/ML Solution Injection Taking Indapamide 1.25 MG Tablet Oral UnknownIndapamide 1.25 MG Tablet Oral Medication List reviewed and reconciled with the patientUnknown Indapamide 1.25 MG Tablet Oral Medication List reviewed and reconciled with the patient * Allergies: C ephalexinCephalexinno[Allergies Verified] Objective: * Vitals: * Examination: N eurology: Cognition Assessment Tools Used Assessment: * Assessment: 1. M CI (mild cognitive impairment) - G31.84 (Primary) For a 64-year-old individual with the following results: SLUMS Score: 29 Within the normal cognitive range (27-30 for individuals with high school education).IQCODE Score: 3.13 Borderline concern for cognitive decline (a score above 3.31 is more indicative of dementia).Cognitive Test Scores:Feature Match: 96 (Very high, suggests strong visual attention and processing speed).Paired Associates: 82 (Above average, good episodic memory).Double Trouble: Invalid (Response inhibition measure could not be assessed).Digit Span: 86 (Strong working memory).Interpretation & Possible Differential Diagnoses:No Clear Signs of Mild Cognitive Impairment (MCI) or Dementia SLUMS is within normal limits Suggests preserved global cognition.IQCODE at 3.13 is slightly elevated but not in the clear dementia range.Possible Executive Function or Processing Anomalies Double Trouble invalid Could indicate difficulty with complex inhibition tasks (frontal lobe dysfunction).If cognitive flexibility or response inhibition is weak, this could suggest early executive dysfunction, common in frontal-subcortical disorders (e.g., vascular cognitive impairment, early Parkinson's, or mild frontotemporal atrophy).No Major Memory Impairments Paired Associates (82) & Digit Span (86) are strong Suggests good memory retention and working memory, reducing concern for Alzheimer's-type memory decline.Possible Non-Cognitive Factors (Depression, Anxiety, or Sleep Issues) IQCODE slightly elevated may reflect subjective concerns from the individual or an informant.If mood issues or sleep disturbances exist, these could contribute to perceived cognitive inefficiency.Next Steps:Monitor for Changes: If there are subjective concerns, repeat SLUMS in 6-12 months. Assess Executive Function Further: If daily tasks (decision-making, multitasking) feel harder, consider further testing. Screen for Mood & Sleep Disorders: Depression, anxiety, or poor sleep can affect perceived cognition. Medical Workup: If cognitive concerns persist, a neurology consult for vascular health or early executive decline may be useful. Would you like a comparison to prior assessments to track any decline over time? Plan: * Treatment: * Procedures: M ild Cognitive Impairment (MCI) Testing: MCI Results M CI Test Results. * Procedure Codes: 9 6132 NEUROPSYCHOLOGICAL TESTING EVALUATION SERVICES FIRST [id number] PSYCHOLOGICAL OR NEUROPSYCHOLOGICAL TEST ADMINISTRATION AND SCORING BY BLASTING CONTRACT MAN, TWO OR MORE TESTS, ANY METHOD; FIRST 30 [id number] PSYCHOLOGICAL OR NEUROPSYCHOLOGICAL TEST ADMINISTRATION AND SCORING BY BLASTING CONTRACT MAN, TWO OR MORE TESTS, ANY METHOD; EACH ADDITIONAL 30 MINUTES (LIST SEPARATELY IN ADDITION TO CODE FOR PRIMARY PROCEDURE)G9916 Funct status past 12 months * Follow Up: F ollow up with ordering provider on _ (Reason: MCI Test result review) * Billing Information: * Visit Code: * Procedure Codes: 58576 NEUROPSYCHOLOGICAL TESTING EVALUATION SERVICES FIRST HOUR. 95950 PSYCHOLOGICAL OR NEUROPSYCHOLOGICAL TEST ADMINISTRATION AND SCORING BY BLASTING CONTRACT MAN, TWO OR MORE TESTS, ANY METHOD; FIRST 30 MINUTES. 50923 PSYCHOLOGICAL OR NEUROPSYCHOLOGICAL TEST ADMINISTRATION AND SCORING BY BLASTING CONTRACT MAN, TWO OR MORE TESTS, ANY METHOD; EACH ADDITIONAL 30 MINUTES (LIST SEPARATELY IN ADDITION TO CODE FOR PRIMARY PROCEDURE). G9916 Funct status past 12 months. Images * Procedures/Mild Cognitive Im pairment (MCI) Testing/HALL_ELIZABETH_RESULTS cognitive * REGATIONAL CARE PASTOR Sign off status: Completed true * Provider: Pj RICHEY MD Date: 0 08/21/2024 Generated for Izabela gonzalez/Milad/uLz on: 0 08/30/2024 05:21 AM CONGREGATIONAL CARE PASTOR History and Physical Notes * HPI (History of Present Illness) Category Sub-Category Detail Notes Category Not es HPI Patient had MCI testing Patient was identified, and logged into PC Test was admistered in office Staff supervising the test: neymar brandon Examination Category Sub-Category Detail Notes Category Not es Neurology Cognition Assessment Tools Used Total score SLUMS: 29 Slums Score Total score IQCODE: 3.13 IQCODE score
--- OUTSIDE RECORDS SUMMARY | 2024-08-30 06:28 | XMS_ITS | Clinical Summary ---
Author Organization [facility] Address [address] [address] [place] [address] Phone Care Team Providers Care Hospital Aides And Assistants Teacher Name Role Phone Sally Senior MD Primary Care Provider [phone] Allergies Active Allergy Reactions Criticality Noted Date Comments Cephalexin Unknown 11/20/2019 Ciprofloxacin Unknown 10/08/2017 Hydrocodone Itching Low 11/20/2019 Naproxen Sodium Rash,Itching Low 11/20/2019 Ondansetron Hcl (Pf) Rash Low 12/01/2020 Sulfa (Sulfonamide Antibiotics) Unknown 12/23/2015 Topiramate Other (See Comments) 11/20/2019 STATES WAS STROKE LIKE SYMPTOMS AND WAS HOSPITALIZED Medications thyroid, pork, ([place] Thyroid) 60 mg tablet Take 60 mg [...] declined 06/08/2020 How often do you attend shinto or worship serv ices? Patient declined 06/08/2020 Do you belong to any clubs o r organizations such as shinto groups, unions, fraternal or athletic groups, or [...] series) 2037 Medical Devices Implanted Type Area Stock Preparer Device Identifier Shelf Expiration Date Model / Serial / Lot Hemostat Surg Snow 2x4in 2081 - [id number] Implanted:Qt y: 1 on 06/14/2020 by Deven Julio DO at [facility] Hemostatic N/A: Abdomen J&J- [employer] 01/11/2022 208 / / [id number] Hemostat Surg Snow 2x4in 2081 - [id number] Implanted:Qt y: 1 on 06/14/2020 by Deven Julio DO at [facility] Hemostatic N/A: Abdomen J&J- [employer] 12/12/20212081 / / [id number] Stent Cautery Axios [id number] - [id number] Implanted:Qt y: 1 on 06/13/2020 by Bryson Junior MD at [facility] Stent N/A: Stomach [employer] [id number] 04/12/2021 [id number] / / [id number] Advance Directives For more information, please contact: [phone] * Full Code (Latest Code Status on [...] 3:26 AM 06/10/2020 8:40 PM Care Teams Hospital Aides And Assistants Teacher Relationship Specialty Start Date End Date Sally Senior MD PCP - General Internal Medicine 11/20/19
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
--- OUTSIDE RECORDS SUMMARY | 2024-08-30 06:28 | XMS_ITS | Patient Health Summary ---
Author Organization [facility] Address [address] [place] [address] Care Team Providers Care Sweet Dough Mixer Name Role Phone Unknown, Provider Primary Care Provider Unavaila ble Note from [facility],non-owned Affiliates and Associated Physician Practices is amultiple site organization consisting of ambulatory clinics and hospital sitesin [place], [place], [place] and [place]. This disclosure is being madepursuant to the Care Everywhere program and may not contain all information available regarding this patient. Last updated 18.[facility] Allergies * Naproxen(Unknown) Medications * Be aware [...] 30 days * ergocalciferol (Drisdol) 1.25 MG (05479 UT) capsule Take 1 (one) capsule by mouth * ferrous sulfate 325 (65 FE) MG tablet Take 1 (one) tablet by mouth once daily * FLUoxetine (PROzac) 40 MG capsule * fluticasone propionate (Flonase) 50 MCG/ACT nasal spray * hydrOXYzine HCl (Atarax) 25 MG tablet Take 1 (one) tablet by mouth every 8 hours as needed * thyroid ([place] Thyroid) 60 MG tablet * pantoprazole (Protonix) [...] < 1000 ng/mL 01/05/2023 4:57 AM CDT [facility] Barbiturates Screen Urine Negative Negative: < 200 ng/mL 01/05/2023 4:57 AM CDT [facility] Benzodiazepine Screen Urine Negative Negative: < 200 ng/mL [facility]23 4[facility] Opiates Urine Negative Negative: < 300 ng/mL 01/05/2023 4:57 AM [facility] Cocaine Metabolites Urine Negative Negative: < 300 ng/mL 01/05/2023 4:57 AM [facility] Phencyclidine Screen Urine Negative Negative: < 25 ng/ml 01/05/2023 4:57 AM T [facility] Cannabinoids Screen Urine Negative Negative: <50 ng/mL 01/05/2023 4:57 AM [facility] Methadone Screen Urine Negative Negative: < 300 ng/mL 01/05/2023 4:57 AM [facility] Fentanyl Screen Urine Negative Negative: <1.5 ng/mL 01/05/2023 4:57 AM [facility] Urine URINE / Unknown Collection / Unknown 01/05/2023 4:32 AM CDT 01/05/2023 4:36 AM CDT Narrative [facility] - 01/05/2023 4:57 AM CDT The Urine Toxicology Screening Panel does not screen for Propoxyphene, Meprobamate, Carisoprodol, Trazodone, dnzx-mtr-shoqlyu medications and/or volatiles (Acetone, Isopropanol, Methanol or Ethylene Glycol). Ethanol, Salicylate, Acetaminophen, Tricyclic Antidepressants and several therapeutic drugs may be individually assayed in serum or plasma specimen. Toxicology testing by the [facility] is an aid to medical diagnosis and treatment of patients. No documented chain of custody was maintained. Results are intended to be used for clinical purposes only. Fmailia Rausch MD LAB - URINE CHEMISTR Y ORDERABLES [facility] [address] [place] [address], [facility] [phone] * EKG 12-LEAD (01/05/2023 3:09 AM CDT) Ventricular Rate 70 BPM [facility] MUSE Atrial Rate 70 BPM [facility] MUSE P-R Interval 154 ms [facility] MUSE QRS Duration ms 84 ms [facility] MUSE Q-T Interval ms 410 ms [facility] MUSE QTC Calculation (Bezet) 442 ms [facility] MUSE Calculated P [place] 66 degrees [facility]USE Calculated R [place] 49 degrees [facility] MUSE Calculated T [place] 65 degrees [facility] MUSE Interpretation EKG NORMAL SINUS RHYTHM NORMAL ECG NO PREVIOUS ECGS AVAILABLE Confirmed by NARAYAN MATHUR MD ([id number]) on 01/07/2023 10:38:51 AM [facility] MUSE 01/05/2023 3:09 AM CDT 01/07/2023 10:38 AM CDT Sayda Triplett MD ECG ORDERABLES [facility] MUSE * CT CHEST ABDOMEN PELVIS [...] pelvis. > Dictated by Tavo Lockhart MD (resident programs assistant). I, Sadi Robertson MD have personally reviewed and interpreted this examination/study. > Interpreting Provider: Sadi Robertson MD on 01/05/2023 9:59 AM Narrative 01/05/2023 9:59 AM CDT PROCEDURE: CT CHEST ABDOMEN PELVIS W CONT, DATE/TIME OF EXAM: 01/05/2023 12:52 AM, LOCATION [facility] INDICATION: Trauma COMPARISON: None. TECHNIQUE: CT of [...] CONT, DATE/TIME OF EXAM:01/05/2023 12:52 AM, LOCATION [facility] INDICATION: Trauma COMPARISON: None. TECHNIQUE: CT of [...] pelvis. > Dictated by Tavo Lockhart MD (resident programs assistant). Sadi Reddy MD have personally reviewed and [...] dictated by Meng Moon MD (vice president and portfolio manager). La Reddy MD have personally reviewed and interpreted this examination/study. > Interpreting Provider: La Morris MD on 01/05/2023 10:50 AM Narrative 01/05/2023 10:50 AM CDT PROCEDURE: CT HEAD WO CONTRAST, CT LUMBAR SPINE WO CONTRAST, CT THORACIC SPINE WO CONTRAST, CT CERVICAL SPINE WO CONTRAST, CT FACIAL BONES WO CONTRAST, DATE/TIME OF EXAM: 01/05/2023 12:52 AM, LOCATION [facility] INDICATION: Trauma ADDITIONAL CLINICAL INFORMATION: COMPARISON: None. [...] DATE/TIME OF EXAM: 01/05/2023 12:52 AM, LOCATION [facility] INDICATION: Trauma ADDITIONAL CLINICAL INFORMATION: COMPARISON: None. [...] foraminal stenosis most prominent at the level [id number] bilaterally..There are no aggressive appearing lytic or [...] dictated by Meng Moon MD (vice president and portfolio manager). La Reddy MD have personally reviewed and [...] dictated by Meng Moon MD (vice president and portfolio manager). La Reddy MD have personally reviewed and interpreted this examination/study. > Interpreting Provider: La Morris MD on 01/05/2023 10:50 AM Narrative 01/05/2023 10:50 AM CDT PROCEDURE: CT HEAD WO CONTRAST, CT LUMBAR SPINE WO CONTRAST, CT THORACIC SPINE WO CONTRAST, CT CERVICAL SPINE WO CONTRAST, CT FACIAL BONES WO CONTRAST, DATE/TIME OF EXAM: 01/05/2023 12:52 AM, LOCATION [facility] INDICATION: Trauma ADDITIONAL CLINICAL INFORMATION: COMPARISON: None. [...] DATE/TIME OF EXAM: 01/05/2023 12:52 AM, LOCATION [facility] INDICATION: Trauma ADDITIONAL CLINICAL INFORMATION: COMPARISON: None. [...] foraminal stenosis most prominent at the level [id number] bilaterally..There are no aggressive appearing lytic or [...] dictated by Meng Moon MD (vice president and portfolio manager). I, La Morris MD have personally reviewed [...] dictated by Meng Moon MD (vice president and portfolio manager). I, La Morris MD have personally reviewed and interpreted this examination/study. > Interpreting Provider: La Morris MD on 01/05/2023 10:50 AM Narrative 01/05/2023 10:50 AM CDT PROCEDURE: CT HEAD WO CONTRAST, CT LUMBAR SPINE WO CONTRAST, CT THORACIC SPINE WO CONTRAST, CT CERVICAL SPINE WO CONTRAST, CT FACIAL BONES WO CONTRAST, DATE/TIME OF EXAM: 01/05/2023 12:52 AM, LOCATION [facility] INDICATION: Trauma ADDITIONAL CLINICAL INFORMATION: COMPARISON: None. [...] DATE/TIME OF EXAM: 01/05/2023 12:52 AM, LOCATION [facility] INDICATION: Trauma ADDITIONAL CLINICAL INFORMATION: COMPARISON: None. [...] foraminal stenosis most prominent at the level [id number]-C47 bilaterally..There are no aggressive appearing lytic or [...] dictated by Meng Moon MD (vice president and portfolio manager). La Reddy MD have personally reviewed and [...] dictated by Meng Moon MD (vice president and portfolio manager). La Reddy MD have personally reviewed and interpreted this examination/study. > Interpreting Provider: La Morris MD on 01/05/2023 10:50 AM Narrative 01/05/2023 10:50 AM CDT PROCEDURE: CT HEAD WO CONTRAST, CT LUMBAR SPINE WO CONTRAST, CT THORACIC SPINE WO CONTRAST, CT CERVICAL SPINE WO CONTRAST, CT FACIAL BONES WO CONTRAST, DATE/TIME OF EXAM: 01/05/2023 12:52 AM, LOCATION [facility] INDICATION: Trauma ADDITIONAL CLINICAL INFORMATION: COMPARISON: None. [...] DATE/TIME OF EXAM: 01/05/2023 12:52 AM, LOCATION [facility] INDICATION: Trauma ADDITIONAL CLINICAL INFORMATION: COMPARISON: None. [...] foraminal stenosis most prominent at the level [id number]-Z31 bilaterally..There are no aggressive appearing lytic or [...] dictated by Meng Moon MD (vice president and portfolio manager). La Reddy MD have personally reviewed and [...] dictated by Meng Moon MD (vice president and portfolio manager). La Reddy MD have personally reviewed and interpreted this examination/study. > Interpreting Provider: La Morris MD on 01/05/2023 10:50 AM Narrative 01/05/2023 10:50 AM CDT PROCEDURE: CT HEAD WO CONTRAST, CT LUMBAR SPINE WO CONTRAST, CT THORACIC SPINE WO CONTRAST, CT CERVICAL SPINE WO CONTRAST, CT FACIAL BONES WO CONTRAST, DATE/TIME OF EXAM: 01/05/2023 12:52 AM, LOCATION [facility] INDICATION: Trauma ADDITIONAL CLINICAL INFORMATION: COMPARISON: None. [...] DATE/TIME OF EXAM: 01/05/2023 12:52 AM, LOCATION [facility] INDICATION: Trauma ADDITIONAL CLINICAL INFORMATION: COMPARISON: None. [...] foraminal stenosis most prominent at the level [id number]-Y25 bilaterally..There are no aggressive appearing lytic or [...] dictated by Meng Moon MD (vice president and portfolio manager). La Reddy MD have personally reviewed and [...] identified. Report dictated by Meng Moon MD (resident programs assistant). Sadi Reddy MD have personally reviewed and interpreted this examination/study. > Interpreting Provider: Sadi Robertson MD on 01/05/2023 2:26 PM Narrative 01/05/2023 2:26 PM CDT PROCEDURE: XR PELVIS 1 OR 2VW, DATE/TIME OF EXAM: 01/05/2023 12:34 AM, LOCATION [facility] INDICATION: Trauma Fracture suspected ADDITIONAL CLINICAL INFORMATION: [...] DATE/TIME OF EXAM: 01/05/2023 12:34 AM, LOCATION [facility] INDICATION: Trauma Fracture suspected ADDITIONAL CLINICAL INFORMATION: [...] identified. Report dictated by Meng Moon MD (resident programs assistant). Sadi Reddy MD have personally reviewed and [...] process. Report dictated by Meng Moon MD (resident programs assistant). Sadi Reddy MD have personally reviewed and [...] process. Report dictated by Meng Moon MD (resident programs assistant). I, Sadi Robertson MD have personally reviewed and interpreted this examination/study. > Interpreting Provider: Sadi Robertson MD on 01/05/2023 2:25 PM Familia Rausch MD DIAGNOSTIC IMAGING O RDERABLES * TEG 6 GLOBAL HEMOSTASIS W/ LYSIS (01/05/2023 12:20 AM CDT) Citrated Kaolin R (Reaction Time) 5.5 4.6 - 9.1 min 01/05/2023 1:30 AM CDT [facility] Citrated Kaolin LY30 (Lysis) 0.3 0.0 - 2.6 % 01/05/2023 1:30 AM CDT [facility] Citrated Functional Fibrinogen MA (Max Amplitude) 19.9 15.0 - 32.0 mm 01/05/2023 1:30 [facility] Citrated RapidTEG MA (Max Amplitude) 65.5 52.0 - 70.0 mm 01/05/2023 1:30 AM [facility] Blood BLOOD SPECIMEN / Unknown Venipuncture / Unknown 01/05/2023 12:20 AM CDT 01/05/2023 12:24 AM CDT Familia Rausch MD LAB - HEMATOLOGY ORD ERABLES [facility] [address] [place] [address], [facility] [phone] * (ABNORMAL) TEG 6S PLATELET MAPPING (01/05/2023 12:20 AM CDT) TEGPLM (Max Amplitude) Koalin 65.3 53.0 - 68.0 mm 01/05/2023 1:18 AM [facility] TEGPLM (Max Amplitude) ACTF 9.6 2.0 - 19.0 mm 01/05/2023 1:18 AM [facility] TEGPLM (Max Amplitude) ADP 38.6(L) 45.0 - 69.0 mm 01/05/2023 1:18 AM [facility] Comment:ADP MA below normal range. Inhibition present. TEGPLM (Max Amplitude) AA 59.6 51.0 - 71.0 mm 01/05/2023 1:18 AM [facility] TEGPLM %Inhibition ADP 47.9(H) 0.0 - 17.0 % 01/05/2023 1:18 AM [facility] TEGPLM %Inhibition AA 10.2 0.0 - 11.0 % 01/05/2023 1:18 AM [facility] TEGPLM %Aggregation ADP 52.1(L) 83.0 - 100.0 % 01/05/2023 1:18 AM [facility] TEGPLM % Aggregation AA 89.8 89.0 - 100.0 % 01/05/2023 1:18 AM [facility] Blood BLOOD SPECIMEN / Unknown Venipuncture / Unknown 01/05/2023 12:20 AM CDT 01/05/2023 12:24 AM CDT Familia Rausch MD LAB - HEMATOLOGY ORD ERABLES Performing Organization Address [facility] Co de Phone Number [address] [address], [facility] [phone] * PTT [facility] (01/05/2023 12:20 AM CDT) APTT 24.6 23.0 - 38.4 Seconds 01/05/2023 12:46 AM CDT [facility] Comment:Suggested therapeuti c range for full dose I.V. unfractionated heparin therapy for venous thromboembolism is 71 to 109 seconds. Blood BLOOD SPECIMEN / Unknown Venipuncture / Unknown 01/05/2023 12:20 AM CDT 01/05/2023 12:26 AM CDT Familia Rausch MD LAB - COAGULATION OR DERABLES Performing Organization Address [facility] Co de Phone Number [address] [address], [facility] [phone] * PT-INR [facility] (01/05/2023 12:20 AM CDT) PT 12.3 12.1 - 14.8 Seconds 01/05/2023 12:46 AM CDT [facility]OR[facility]ORY HOSPITAL INR 0.9 See Comment 01/05/2023 12:46 AM CDT [facility] Comment:The suggested therap eutic range for standard coumadin (warfarin) therapy is an INR of 2.0-3.0. For high-risk patients (Mechanical Mitral Valve Prosthesis, etc.), the suggested prophylactic therapeutic range is an INR of 2.5-3.5. Blood BLOOD SPECIMEN / Unknown Venipuncture / Unknown 01/05/2023 12:20 AM CDT 01/05/2023 12:26 AM CDT Familia Rausch MD LAB - COAGULATION OR DERABLES Performing Organization Address [facility] Co de Phone Number [address] [address], [facility] [phone] * TYPE + SCREEN PANEL (01/05/2023 12:20 AM CDT) Pathologist [facility] Antibody Screen NEG 1:05 AM CDT [facility] BLOOD BANK LAB ABO Rh A POS 01/05/2023 1:05 AM CDT [facility] BLOOD BANK LAB Blood Bank BLOOD SPECIMEN / Unknown Venipuncture / Unknown 01/05/2023 12:20 AM CDT 01/05/2023 12:26 AM CDT Familia Rausch MD LAB - BLOOD BANK ORD ERABLES [facility] BLOOD BANK LAB [address] [place] [address], [facility] [phone] * (ABNORMAL) CBC W AUTO DIFFERENTIAL (01/05/2023 12:20 AM CDT) [facility] WBC 6.1 3.5 - 10.5 10 3/uL 01/05/2023 12:32 AM [facility] RBC 4.07 3.80 - 5.20 10 6/uL 01/05/2023 12:32 AM [facility] Hemoglobin 11.8(L) 12.0 - 15.6 g/dL 01/05/2023 12:32 AM [facility] Hematocrit 35.6 35.0 - 45.0 % 01/05/2023 12:32 AM [facility] MCV 87.5 80.7 - 98.3 fL 01/05/2023 12:32 AM [facility] MCH 29.0 26.7 - 34.0 pg 01/05/2023 12:32 AM [facility] MCHC 33.1 30.8 - 35.9 g/dL 01/05/2023 12:32 AM [facility] RDW-SD 40.8 36.0 - 50.0 fL 01/05/2023 12:32 AM [facility] RDW-CV 12.8 11.2 - 14.8 % 01/05/2023 12:32 AM [facility] Platelet Count 276 150 - 400 10 3/uL 01/05/2023 12:32 AM [facility] MPV 8.7(L) 9.4 - 12.9 fL 01/05/2023 12:32 AM [facility] nRBC Absolute 0.00 0 10 3/uL 01/05/2023 12:32 AM [facility] nRBC Auto 0.0 0 /100 WBC 01/05/2023 12:32 AM [facility] Neutrophils % 63.5 35.0 - 70.0 % 01/05/2023 12:32 AM [facility] Lymphocytes % 26.3 20.0 - 43.0 % 01/05/2023 12:32 AM [facility] Monocytes % 7.1 5.0 - 13.0 % 01/05/2023 12:32 AM [facility] Eosinophils % 2.1 0.0 - 6.0 % 01/05/2023 12:32 AM [facility] Basophil % 0.5 0.0 - 2.0 % 01/05/2023 12:32 AM [facility] Neutrophils Absolute 3.84 1.60 - 7.00 10 3/uL 01/05/2023 12:32 AM [facility] Lymphocyte Absolute 1.59 1.10 - 3.90 10 3/uL 01/05/2023 12:32 AM [facility] Monocytes Absolute 0.43 0.26 - 1.07 10 3/uL 01/05/2023 12:32 AM [facility] Eosinophils Absolute 0.13 0.00 - 0.47 10 3/uL 01/05/2023 12:32 AM [facility] Basophils Absolute 0.03 0.00 - 0.08 10 3/uL 01/05/2023 12:32 AM [facility] Immature Granulocytes % 0.5 0.0 - 1.0 % 01/05/2023 12:32 AM [facility] Immature Granulocytes Absolute 0.03 01/05/2023 12:32 AM [facility] Blood BLOOD SPECIMEN / Unknown Venipuncture / Unknown 01/05/2023 12:20 AM CDT 01/05/2023 12:27 AM CDT Familia Rausch MD LAB - HEMATOLOGY ORD JACQUI Performing Organization Address City/[facility]/ZIP Co de Phone Number [facility] [address] [place] [address], [facility] [phone] * (ABNORMAL) BASIC METABOLIC PANEL (CALCIUM TOTAL) (01/05/2023 12:20 AM CDT) BUN 13 7 - 26 mg/dL 01/05/2023 12:57 AM [facility] Creatinine 0.74 0.56 - 0.96 mg/dL 01/05/2023 12:57 AM [facility] Sodium 131(L) 136 - 145 mmol/L 01/05/2023 12:57 AM [facility] Potassium 3.0(L) 3.5 - 4.5 mmol/L 01/05/2023 12:57 AM [facility] Chloride 99 98 - 107 mmol/L 01/05/2023 12:57 AM [facility] CO2 22 22 - 29 mmol/L 01/05/2023 12:57 AM [facility] Glucose 115 70 - 115 mg/dL 01/05/2023 12:57 AM [facility] Calcium 8.9 8.4 - 10.2 mg/dL 01/05/2023 12:57 AM [facility] Anion Gap 13 8 - 18 01/05/2023 12:57 AM [facility] BUN/Creatinine Ratio 18 7 - 23 01/05/2023 12:57 AM [facility] Osmolality Calculated 273 270 - 300 mOsm/kg 01/05/2023 12:57 AM [facility] eGFR by CKD-EPI 63(L) >=90 mL/min/1.7 3 m2 01/05/2023 12:57 AM [facility] Blood BLOOD SPECIMEN / Unknown Venipuncture / Unknown 01/05/2023 12:20 AM CDT 01/05/2023 12:26 AM CDT Familia Rausch MD LAB - CHEMISTRY ORDUnique GUAMAN [address] [address], [facility] [phone] * (ABNORMAL) ALCOHOL ETHYL BLOOD (01/05/2023 12:20 AM CDT) Ethanol (mg/dL) 196(H) <10 mg/dL 12:57 AM CDT [facility] Ethanol Calculated (g/dL) 0.196(H) <=0.010 g/dL 01/05/2023 12:57 AM CDT [facility] Blood BLOOD SPECIMEN / Unknown Venipuncture / Unknown 01/05/2023 12:20 AM CDT 01/05/2023 12:26 AM CDT Narrative [facility] - 01/05/2023 12:57 AM CDT Ethanol Interp <10: None Detected. Depression of CARE PROGRAM DIRECTOR: >100 mg/dl Potentially Critical: >250 mg/dl Potentially [...] - CHEMISTRY ORDE DENIZ Performing Organization Address [facility] Co de Phone Number [address] [address], [facility] [phone] * DERMATOPATHOLOGY (01/03/2022 12:00 AM CDT) Case Report Dermatopathology Report Case: [id number] Authorizing Provider: Jasper Contreras MD Collected: 01/03/2022 12:00 AM Ordering Location: [facility] DermPath Lab Received: 01/04/2022 11:37 AM Pathologist: [...] characteristic determined by the Dermatopathology Laboratory at [facility], directed by Dr. Socrates Ga. These tests need not be, and therefore are not, approved by the [place] Food and Drug Administration. The tests are used for clinical purposes. Billing Codes Specimen Charges Stain Charges 92870 1 2 3:11 PM CDT DERMATOPATHOLOGY LABORATORY Embedded Images 2 3:11 PM CDT DERMATOPATHOLOGY LABORATORY Pathology/Cytolog y TISSUE SPECIMEN FROM SKIN / Unknown 01/03/2022 01/04/2022 11:37 AM CDT Jasper Contreras MD LAB - PATHOLOGY/CYTO LOGY ORDERABLES DERMATOPATHOLOGY LABORATORY [facility] - Department of Dermatology [address] [phone] Care Teams Sweet Dough Mixer Relationship Specialty Start Date End Date Unknown, Provider PCP - General 01/05/23
--- OUTSIDE RECORDS SUMMARY | 2024-08-30 06:28 | XMS_ITS | Encounter Summary ---
Author Organization [facility] Address [address] [place] [address] [place] [address] Care Team Providers Care Aeronautical Engineering Officer Name Role Phone Unknown, Provider Primary Care Provider Unavaila ble Encounter Details Date Type Department Care Team (Late st Contact Info) Description 01/04/2022 Lab Requisition [facility] Care DermPath Lab [address] [facility] [place] [address] Jasper Contreras MD [address] [place] [address] Social History Tobacco Use Types [...] AM CDT) Case Report Dermatopathology Report Case: [id number] Authorizing Provider: Jasper Contreras MD Collected: 01/03/2022 12:00 AM Ordering Location: [facility] Care DermPath Lab Received: 01/04/2022 11:37 AM [...] characteristic determined by the Dermatopathology Laboratory at [facility], directed by Dr. Socrates Ga. These tests need not be, and therefore are not, approved by the [place] Food and Drug Administration. The tests are used for clinical purposes. Billing Codes Specimen Charges Stain Charges 08127 1 2 3:11 PM CDT DERMATOPATHOLOGY LABORATORY Embedded Images 2 3:11 PM CDT DERMATOPATHOLOGY LABORATORY Pathology/Cytolog y TISSUE SPECIMEN FROM SKIN / Unknown 01/03/2022 01/04/2022 11:37 AM CDT Jasper Contreras MD LAB - PATHOLOGY/CYTO LOGY ORDERABLES DERMATOPATHOLOGY LABORATORY [facility] - Department of Dermatology [address] [phone] documented in this encounter Visit Diagnoses Not on filedocumented in this encounter Care Teams Aeronautical Engineering Officer Relationship Specialty Start Date End Date Unknown, Provider PCP - General 01/05/23 documented as of this encounter
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
--- OUTSIDE RECORDS SUMMARY | 2024-08-30 06:28 | XMS_ITS | Continuity of Care Document ---
Author Organization [facility] Address [address] [place] [address] [address] [place] [address] Phone Care Team Providers Care Cable Worker Helper Name Role Phone Suri Yeung Unavailable Unavailable Advance Directives Directive Yes / No Effective Date File Name No Information Encounters Encounter Description Practice Location Reason(s) For Visit Diagnoses Date Provider Providers Copied on Encounter [facility], [address], [place], [place], [id number], [place] tel:[phone] [facility] No Information Mar-0 5-200 1 Anjana Mccord. [address] , [address], [place], [address], [place]. tel:[phone] Family History Family Member Type Diagnosis Age At Onset No Information Payers Payer name Insurance type Covered green party ID Authoriza tion(s) No Information Social [...]
--- OUTSIDE RECORDS SUMMARY | 2024-08-30 06:28 | XMS_ITS | Clinical Summary ---
Author Organization [facility] Address [address] [place] [address] Care Team Providers Care Campus Supervisor Name Role Phone Unknown, Provider Primary Care Provider Unavaila ble Source Comments [facility],non-owned Affiliates and Associated Physician Practices is amultiple site organization consisting of ambulatory clinics and hospital sitesin [place], [place], [place] and [place]. This disclosure is being madepursuant to the Care Everywhere program and may not contain all information available regarding this patient. Last updated 18.[facility] Daily Deals for Moms Allergies Active Allergy Reactions Criticality Noted Date [...] 30 days Active ergocalciferol (Drisdol) 1.25 MG (78623 UT) capsule Take 1 (one) capsule by mouth Active ferrous sulfate 325 (65 FE) MG tablet Take 1 (one) tablet by mouth once daily Active FLUoxetine (PROzac) 40 MG capsule Active fluticasone propionate (Flonase) 50 MCG/ACT nasal spray Active hydrOXYzine HCl (Atarax) 25 MG tablet Take 1 (one) tablet by mouth every 8 hours as needed Active thyroid ([place] Thyroid) 60 MG tablet Active pantoprazole (Protonix) [...] 7 - 26 mg/dL 01/05/2023 12:57 AM [facility] Creatinine 0.74 0.56 - 0.96 mg/dL 01/05/2023 12:57 AM [facility] Sodium 131(L) 136 - 145 mmol/L 01/05/2023 12:57 AM [facility] Potassium 3.0(L) 3.5 - 4.5 mmol/L 01/05/2023 12:57 AM [facility] Chloride 99 98 - 107 mmol/L 01/05/2023 12:57 AM [facility] CO2 22 22 - 29 mmol/L 01/05/2023 12:57 AM [facility] Glucose 115 70 - 115 mg/dL 01/05/2023 12:57 AM [facility] Calcium 8.9 8.4 - 10.2 mg/dL 01/05/2023 12:57 AM [facility] Anion Gap 13 8 - 18 01/05/2023 12:57 AM [facility] BUN/Creatinine Ratio 18 7 - 23 01/05/2023 12:57 AM [facility] Osmolality Calculated 273 270 - 300 mOsm/kg 01/05/2023 12:57 AM [facility] eGFR by CKD-EPI 63(L) >=90 mL/min/1.7 3 m2 01/05/2023 12:57 AM [facility] Blood BLOOD SPECIMEN / Unknown Venipuncture / Unknown 01/05/2023 12:20 AM [facility] 01/05/2023 12:26 AM [facility] Familia Rausch MD LAB - CHEMISTRY GONZALO GUAMAN [facility] Organization Address City/State/ZIP Co de Phone Number [facility] [address] [place] [address], [facility] [phone] from Last 3 Months or Most Recently Relevant to Health Maintenance Care Teams Campus Supervisor Relationship Specialty Start Date End Date Unknown, Provider PCP - General 01/05/23
--- OUTSIDE RECORDS SUMMARY | 2024-08-30 06:28 | XMS_ITS | Clinical Summary ---
Author Organization [facility] Address [address] [place] [address] Care Team Providers Care Business Machine Mechanic Name Role Phone None, Provider MD Primary [...] 1000 MCG/ML Injection SolutionINJECT 1ML(1000MCG) ONCE MONTHLY [id number] ve 7 Active albuterol sulfate HFA 108 [...] (08/21/2019): Added automatically from request for surgery [id number] Other headache syndrome 03/05/2019 Hyperlipidemia 03/05/2019 Anxiety [...] Sex Assigned at Female 08/21/2019 12:43 PM GROUNDS CREW SUPERVISOR Legal Sex Female 2:55 AM CDT Gender Identity Female 08/21/2019 12:43 PM GROUNDS CREW SUPERVISOR Sexual Orientation Straight 08/21/2019 12 :43 PM GROUNDS CREW SUPERVISOR Last Filed Vital Signs Vital Sign Reading Time Taken Comments Blood Pressure 123/64 06/25/2022 7:38 PM GROUNDS CREW SUPERVISOR Pulse 67 06/25/2022 7:38 PM GROUNDS CREW SUPERVISOR Temperature 36.4 C (97.5 F) 06/25/2022 7:38 PM GROUNDS CREW SUPERVISOR Respiratory Rate 18 06/25/2022 7:38 PM GROUNDS CREW SUPERVISOR Oxygen Saturation 100% 06/25/2022 7:38 PM GROUNDS CREW SUPERVISOR Inhaled Oxygen Concentration - - Weight 68 kg (150 lb) 06/25/2022 7:38 PM GROUNDS CREW SUPERVISOR Height 162.6 cm (5' 4 ) 06/25/2022 7:38 PM GROUNDS CREW SUPERVISOR Body Mass Index 25.75 06/25/2022 7:38 PM GROUNDS CREW SUPERVISOR Plan of Treatment Health Maintenance Due Date [...] HEPATITIS PANEL ACUTE STAT 06/03/2020 2:37 PM GROUNDS CREW SUPERVISOR MG DIAG W DILEEP BILAT DIGI Routine 10/09/2017 4:09 PM CDT from Last 3 Months or Most Recently Relevant to Health Maintenance Results * HEPATITIS A,B,& C (06/03/2020 2:37 PM GROUNDS CREW SUPERVISOR) HEPATITIS B SURFACE AG NON-REACTI VE NON-REACTI VE 06/03/2020 8:01 PM GROUNDS CREW SUPERVISOR [facility] HEP B CORE TOTAL AB NON-REACTI VE NON-REACTI VE 06/03/2020 8:15 PM GROUNDS CREW SUPERVISOR [facility] HEP B SURFACE AB NON-REACTI VE 06/03/2020 8:00 PM GROUNDS CREW SUPERVISOR [facility] HAV IGM NON-REACTI VE NON-REACTI VE 06/03/2020 8:16 PM GROUNDS CREW SUPERVISOR [facility] HEPATITIS C AB NON-REACTI VE NON-REACTI VE 06/03/2020 8:15 PM GROUNDS CREW SUPERVISOR [facility] 06/03/2020 2:37 PM GROUNDS CREW SUPERVISOR us Milton Riggins MD LABORATORY Final Resu lt [facility] [address] [place] [id number], [place] [phone] * MG DIAG W DILEEP BILAT DIGI (10/09/2017 4:09 PM CDT) Anatomical Region Laterality Modality Breast Bilateral Mammography 10/09/2017 4:09 PM CDT 10/09/2017 4:09 PM CDT Narrative 10/09/2017 4:16 PM CDT ELIZABETH MADSEN ADMIT/SERVICE DATE: 10/09/17 ACCT: [id number] DISCHARGE DATE: : 1960 SEX: F ORD SITE: [facility] PT TYPE: REG CLI ORDERING MD: NICOLE RAUSCH NP STUDY DATE REPORT # ORDER # EXT ORDER ID 10/09/17 [id number] PROC CODE: DDMTBIL PROCEDURE DESCRIPTION: MG DIAG [...] - 05/09/2018 ELIZABETH MADSEN ADMIT/SERVICE DATE:10/09/17 ACCT: [id number] DISCHARGE DATE: : 1960 SEX: F ORD SITE: [facility] PT TYPE: REG CLI ORDERING MD:NICOLE RAUSCH NP STUDY DATE REPORT # ORDER # EXT ORDER ID 10/09/17 [id number] PROC CODE: DDMTBIL PROCEDURE DESCRIPTION: MG DIAG [...] to Health Maintenance Insurance [employer] Care Teams Business Machine Mechanic Relationship Specialty Start Date End Date None, Provider, PCP - General 08/25/21
--- OUTSIDE RECORDS SUMMARY | 2024-08-30 06:28 | XMS_ITS | Referral Summary ---
Author Organization [facility] Address [address] [facility] [place] [address] Care Team Providers Care Creamery Worker Name Role Phone Unknown, Provider Primary Care Provider Unavaila ble Source Comments [facility],non-[facility] Affiliates and Associated Physician Practices is amultiple site organization consisting of ambulatory clinics and hospital sitesin [place], [place], [place] and [place]. This disclosure is being madepursuant to the Care Everywhere program and may not contain all information available regarding this patient. Last updated 18.[facility] Listen Up Allergies Active Allergy Reactions Criticality Noted Date [...] 30 days Active ergocalciferol (Drisdol) 1.25 MG (40390 UT) capsule Take 1 (one) capsule by mouth Active ferrous sulfate 325 (65 FE) MG tablet Take 1 (one) tablet by mouth once daily Active FLUoxetine (PROzac) 40 MG capsule Active fluticasone propionate (Flonase) 50 MCG/ACT nasal spray Active hydrOXYzine HCl (Atarax) 25 MG tablet Take 1 (one) tablet by mouth every 8 hours as needed Active thyroid ([place]ton Thyroid) 60 MG tablet Active pantoprazole (Protonix) [...] 7 - 26 mg/dL 01/05/2023 12:57 AM [facility] Creatinine 0.74 0.56 - 0.96 mg/dL 01/05/2023 12:57 AM [facility] Sodium 131(L) 136 - 145 mmol/L 01/05/2023 12:57 AM [facility] Potassium 3.0(L) 3.5 - 4.5 mmol/L 01/05/2023 12:57 AM [facility] Chloride 99 98 - 107 mmol/L 01/05/2023 12:57 AM [facility] CO2 22 22 - 29 mmol/L 01/05/2023 12:57 AM [facility] Glucose 115 70 - 115 mg/dL 01/05/2023 12:57 AM [facility] Calcium 8.9 8.4 - 10.2 mg/dL 01/05/2023 12:57 AM [facility] Anion Gap 13 8 - 18 01/05/2023 12:57 AM [facility] BUN/Creatinine Ratio 18 7 - 23 01/05/2023 12:57 AM [facility] Osmolality Calculated 273 270 - 300 mOsm/kg 01/05/2023 12:57 AM [facility] eGFR by CKD-EPI 63(L) >=90 mL/min/1.7 3 m2 01/05/2023 12:57 AM [facility] Blood BLOOD SPECIMEN / Unknown Venipuncture / Unknown 01/05/2023 12:20 AM CDT 01/05/2023 12:26 AM CDT Familia Rausch MD LAB - CHEMISTRY GONZALO GUAMAN [facility] Organization Address City/State/ZIP Co de Phone Number [facility] [address] [place] [address], [facility] [phone] from Last 3 Months or Most Recently Relevant to Health Maintenance Care Teams Creamery Worker Relationship Specialty Start Date End Date Unknown, Provider PCP - General 01/05/23
--- OUTSIDE RECORDS SUMMARY | 2024-08-30 06:28 | XMS_ITS | Continuity of Care Document ---
Author Name [facility] Address [address] [place] [address] Organization [facility] Care Team Providers Care Senior Software Quality Engineer Name Role Phone [facility] Unavailable Unavailable Procedures Procedure Code Date Perfomer Comments Source Eli-en-y gastric bypass<sup>1</sup> [id number] 2006 [facility]
--- OUTSIDE RECORDS SUMMARY | 2024-08-30 06:28 | XMS_ITS | Encounter Summary ---
Author Organization [facility] Healthcare Address [address] [place] [address] Care Team Providers Care Mercantile Agent Name Role Phone Filomena Cotter AQUATIC PERFORMER Primary Care Provider [phone] Vangie Lopez AQUATIC PERFORMER Unavailable [phone] Encounter Details Date Type Department Care Team (Late st Contact Info) Description 08/29/2024 Patient Self-Triage [facility] HealthCare/ Physicians [facility] [place] [address] Mychart, Generic Provider [address] [place], [place] [id number] Social History Tobacco Use Types Packs/Day Years [...] on file Legal Sex Female 8:58 AM PROFESSOR OF VISUAL ARTS Gender Identity Female 10/21/2023 9:49 AM CDT Sexual Orientation Not on file documented as of this encounter Plan of Treatment Not on file documented as of this encounter Visit Diagnoses Not on filedocumented in this encounter Care Teams Mercantile Agent Relationship Specialty Start Date End Date Filomena Cotter NP PCP - General Family Medicine 09/03/23 Vangie Lopez, AQUATIC PERFORMER [address] [place] [place] [address] Nurse Practitioner Nurse Practitioner 05/21/24 documented as of this encounter
--- OUTSIDE RECORDS SUMMARY | 2024-08-30 06:28 | XMS_ITS | Patient Health Record ---
Author Organization [facility] [email or web address] Address [address] [facility] [address] [place] [address] Care Team Providers Care Press Reader Name Role Phone Nicanor Gutierrez Unavailable [phone] Elinor Kelsea Unavailable [phone] Nadira Figueroa Unavailable [phone] Santy Duncan Unavailable [phone] Migration, Provider Unavailable Unavailable Allergies Allergen (clinical drug ingredient) Drug/Non Drug Allergy documented on EMR Reaction Allergy Type Onset Date Status cephalexin Cephalexin Unknown Drug Allergy Activ e Reason For Referral No Information Medications Medication SIG (Take, Route, Frequency, Duration) Notes Start Date End Date Status buPROPion HCl 75 MG 1 tablet Orally Twic e a day for 30 days 08/07/2024 Active Indapamide 1.25 MG Oral for 30 Days Unknown Indapamide 1.25 MG Oral for 30 Days Active Tylenol 325 MG 1 tablet as needed Orally every 6 hrs As needed Active buPROPion HCl 75 MG 1 tablet Orally Twic e a day 08/07/2024 Active Cyanocobalamin 1000 MCG/ML Injection for 30 Days Active [place] Thyroid 120 MG Oral for 25 Days Active Social History Tobacco Use: Social History Observation Description Date Details (start date - stop date) Current Smoker NA - 01/09/2024 Sex Assigned At : Social History Observation Description Sex Assigned At Female Tobacco Control (Standard) Question Answer Notes When did you stop smoking? 01/09/2024 How long has it been since you last smoked? 1-5 years Tobacco use: Current smoker AUDIT-C (Standard) Question Answer Notes Did you have a drink containing alcohol in the p ast year? No Interpretation Positive Problems Problem Type SNOMED Code ICD Code Onset Dates Problem Status W/U Status Risk Notes Problem Severe recurrent major depression without psychotic features (71818085) Major depressive disorder, recurrent severe without psychotic features (F33.2) 4 Active confirmed Problem Generalized anxiety disorder (84730595) Generalized anxiety disorder (F41.1) Active confirmed Problem Generalized anxiety disorder (52614072) Generalized anxiety disorder (F41.1) 4 Active confirmed Problem Posttraumatic stress disorder (73479735) Post-traumatic stress disorder, chronic (F43.12) 4 Active confirmed Problem [id number] MCI (mild cognitive impairment) (G31.84) Active confirmed Vital Signs Heart Rate 60 /min 08/07/2024 Height-cm 162.56 cm 08/07/2024 Blood pressure diastolic 66 mm Hg 08/07/2024 Weight-kg 67.95 kg 08/07/2024 Height 64.00 in 08/07/2024 Blood pressure systolic 112 mm Hg 08/07/2024 Weight 149.8 lbs 08/07/2024 BMI 25.71 kg/m2 08/07/2024 Procedures Procedure Date Ordered Date Performed Result Body Sit e MCI Testing 08/07/2024 N/A SLUMS Testing 08/07/2024 N/A Encounters Encounter Location Date Provider Diagnosis [employer] [address] [facility] [address] [place] [address] 12/11/2023 Nadira Figueroa [facility] [employer] [facility], [facility] [address] [address] 03/30/2024 Nicanor [employer] [facility], [facility] [address] [address] 08/28/2024 Nicanor Clubb [facility] [address] [place] [address] [place] [address] 02/24/2024 Nicanor Clubb Severe episode of recurrent major depressive disorder, without psychotic features F33.2 ; Generalized anxiety disorder F41.1 and Insomnia, unspecified type G47.00 [employer], [facility] [address] [place] [address] [place] [address] 08/07/2024 Nicanor Clubb Major depressive disorder, recurrent severe without psychotic features F33.2 ; Generalized anxiety disorder F41.1 and MCI (mild cognitive impairment) G31.84 [facility] [address] [place] [address] [place] [address] 08/21/2024 Santy Duncan MCI (mild cognitive impairment) G31.84 [facility], [facility] [address] [facility] [address] [place] [address] 08/26/2024 Nicanor Clubb [facility], [facility] [address] [facility] [address] [place] [address] 09/15/2023 Provider [facility], [facility] [address] [facility] [address] [place] [address] 10/11/2023 Provider [facility], [facility] [address] [facility] [address] [place] [address] 10/20/2023 Provider [facility], [facility] [address] [facility] [address] [place] [address] 11/15/2023 Provider [facility], [facility] [address] [facility] [address] [place] [address] 11/24/2023 [facility], [facility] [address] [facility] [address] [place] [address] 11/30/2023 Provider [facility], [facility] [address] [facility] [address] [place] [address] 12/01/2023 Provider [facility], [facility] [address] [facility] [address] [place] [address] 08/07/2024 [facility] Assessments Encounter Date Diagnosis (ICD Code) Assessment [...] could suggest early executive dysfunction, common in frontal-subcort ical disorders (e.g., vascular cognitive impairment, early Parkinson's, or mild frontotemporal atrophy). No Major Memory Impairments [facility] (82) & [employer] (86) are strong Suggests good memory retention and working memory, reducing concern for Alzheimer's-typ e memory decline. Possible Non-Cognitive Factors (Depression, Anxiety, or Sleep Issues) IQCODE slightly elevated may reflect subjective concerns from the individual or an informant. If mood issues or sleep disturbances exist, these could contribute to perceived cognitive inefficiency. Next Steps: Monitor for Changes: If there are subjective concerns, repeat SLUMS in 6-12 months. Assess Executive Function Further: If daily tasks (decision-makin g, multitasking) feel harder, consider further testing. Screen for Mood & Sleep Disorders: Depression, anxiety, or poor sleep can affect perceived cognition. Medical Workup: If cognitive concerns persist, a neurology consult for vascular health or early executive decline may be useful. Would you like a comparison to prior assessments to track any decline over time? 02/24/2024 Severe episode of recurrent major depressive disorder, without psychotic features (ICD-10 - F33.2) 1. Major Depressive Disorder: - Start fluoxetine 10 mg daily for two weeks, then increase to 20 mg daily - Follow up in one month to assess response to medication - Encourage patient to continue taking melatonin for sleep as needed 2. Anxiety related to son's behavior and financial stress: - Refer patient to therapist for regular therapy sessions - Encourage patient to utilize walk-in therapy sessions with [facility] as needed - Discuss coping strategies and setting boundaries with son during therapy 08/07/2024 Major depressive disorder, recurrent severe without psychotic features (ICD-10 - F33.2) 08/07/2024 Generalized anxiety disorder (ICD-10 - F41.1) 02/24/2024 Generalized anxiety disorder (ICD-10 - F41.1) 1. Major Depressive Disorder: - Start fluoxetine 10 mg daily for two weeks, then increase to 20 mg daily - Follow up in one month to assess response to medication - Encourage patient to continue taking melatonin for sleep as needed 2. Anxiety related to son's behavior and financial stress: - Refer patient to therapist for regular therapy sessions - Encourage patient to utilize walk-in therapy sessions with [facility] as needed - Discuss coping strategies and setting boundaries with son during therapy 08/07/2024 MCI (mild cognitive impairment) (ICD-10 - G31.84) 02/24/2024 Insomnia, unspecified type (ICD-10 - G47.00) 1. Major Depressive Disorder: - Start fluoxetine 10 mg daily for two weeks, then increase to 20 mg daily - Follow up in one month to assess response to medication - Encourage patient to continue taking melatonin for sleep as needed 2. Anxiety related to son's behavior and financial stress: - Refer patient to therapist for regular therapy sessions - Encourage patient to utilize walk-in therapy sessions with [facility] as needed - Discuss coping strategies and setting boundaries with son during therapy 03/30/2024 Other Learning About Depression Screening material was printed 02/24/2024 Other Learning About Depression Screening material was printed 1. Major Depressive Disorder: - Start fluoxetine 10 mg daily for two weeks, then increase to 20 mg daily - Follow up in one month to assess response to medication - Encourage patient to continue taking melatonin for sleep as needed 2. Anxiety related to son's behavior and financial stress: - Refer patient to therapist for regular therapy sessions - Encourage patient to utilize walk-in therapy sessions with [facility] as needed - Discuss coping strategies and setting boundaries with son during therapy 08/07/2024 Other SPRAVATO is contraindicated in patients with: Aneurysmal vascular disease (including thoracic and abdominal aorta, intracranial and peripheral arterial vessels) or arteriovenous malformation No History of intracerebral hemorrhage No Hypersensitivity to Esketamine, ketamine, or any of the ingredients No UNCONTROLLED HYPERTENSION No Hypertension is not an absolute contraindication Notes: referral to the local chapter or national office of the Alzheimer's Association ( ; http://www.alz.org ), the Alzheimer's Disease Education and Referral Center (ADEAR) ( ; http://www.hayde.nih .gov/Alzheimers/), 1. Major Depressive Disorder (PHQ score: 16) discussed absorption issues w/ hx of gastric bypass. discussed liquid SSRI vs Wellbutrin BID dosing. - Plan: Start bupropion HCL 75 mg BID. Monitor for side effects and response to treatment. Reevaluate in 4-6 weeks for full effectiveness. Patient has tried multiple antidepressants in the past, including Effexor, Paxil, Lexapro, and Cymbalta. 2. Generalized Anxiety Disorder (BETTY score: 12) - Plan: Continue with current treatment plan. Monitor for changes in anxiety levels during follow-up visits. 3. Gastric Bypass - Plan: Continue gastric vitamin B injections. Consider liquid form of antidepressants for better absorption. Patient reports difficulty absorbing medications post-bypass. 4. Cognitive Impairment - Plan: Order computer-based test for cognitive impairment (scheduled on 08/21/24). Share results with primary care physician, Dr. Cotter. Consider MRI if indicated by test results. Discuss medication to prevent progression of cognitive impairment. Patient reports gradual cognitive decline, possibly related to previous Wellbutrin use or HX of TBI. 5. History of Seizures - Plan: Monitor for any recurrence of seizures during follow-up visits. Coordinate with primary care physician for seizure management if needed. Patient reports history of febrile seizures as a child. - monitor use with bupropion for risk of lowering seizure threshold. 6. Interest in Ketamine Treatment (Sprav[place]) - Plan: Provide information and discuss benefits and risks. Start paperwork for insurance coverage. Schedule treatment sessions if patient decides to proceed. Patient expressed interest and received detailed explanation of the treatment. - consider risk r/t TBI - patient reports no history of brain bleed from TBI. Plan Of Treatment Pending Test Test Name Order Date UDT 02/24/2024 MCI Testing 08/07/2024 SLUMS Testing 08/07/2024 Insurance Providers Payer Name Payer Address Payer Phone Subscriber Number Group Number Insured Name Patient Relationship to Insured Coverage Start Date Coverage End Date [employer] [employer] [address] [place] [address] [id number] Elizabeth Walters Self - patient is the insured Medical (General) History Medical History History ICD Code Past Psychiatric History: Anxiety Disord er,PTSD,Major Depressive Episode abdominal aortic aneurysm: No atrial fibrillation: No chronic fatigue syndrome: No essential tremor: No hypertension: Yes Parkinson's disease: No restless leg syndrome: No stroke: No subdural hematoma: Yes vitamin B12 deficiency: Yes vitamin D deficiency: Yes Hypothyroidism Problems: Chronic post-traumatic stress disorder undefined Generalized anxiety disorder Severe recurrent major depression withou t psychotic features Hypothyroidism hypertension seizure activity as a child and once as an adult TBI Surgical History Surgery Date(Month/Year) Removal of gallbladder (71042) 4 gastric bypass Any surgical history 11/20/2006 Subdural hematoma (47425) 12/13/2022 Hysterectomy (52843) 02/14/2000 gastric bypass Hospitalization History Reason Date(Month/Year) seizure activity
[2024-08-30 07:15] VITALS: BP 129/78; PULSE 93; RESP 20; O2SAT 100
[2024-08-30 07:32] VITALS: BP 129/78; PULSE 90; RESP 17; TEMP 37.1; O2SAT 100
--- NOTE | 2024-08-30 07:54 | ECG_ITS ---
Test Date: 2024-08-30 05:40:41 Measurements Intervals [place] Rate: 106 P: 56 CA: 159 QRS: 42 QRSD: 83 T: 55 QT: 300 QTc: 399 Interpretive Statements SINUS TACHYCARDIA LOW QRS VOLTAGE IN PRECORDIAL LEADS BORDERLINE ST ABNORMALITY- INF/LAT LEADS BASELINE ARTIFACT- I, III, AVR, AVL, AVF, V2-V6 ABNORMAL ECG Compared to ECG 08/30/2024 05:36:05 SUPRAVENTRICULAR TACHYCARDIA NO LONGER PRESENT POSSIBLE ISCHEMIA NO LONGER PRESENT Electronically Signed On 08-30-2024 08:12:35 [facility] by Marc Nixon D.O.
== END 2024-08-30 07:35 | disposition home or self-care (01) ==
PROVIDERS: Emergency Provider Emergency Medicine; PCP Nurse Practitioner Family
DX: R00.2 Palpitations (principal); I47.10 Supraventricular tachycardia, unspecified; R94.31 Abnormal electrocardiogram [ECG] [EKG]
CPT/HCPCS: 36415; 71045; 80053; 83690; 84443; 84484; 85025; 85610; 85730; 93005; 96360; 99284; J0153; J7030